=== PATIENT | female | born 1970 | race African-American/Black ===

== ENCOUNTER 2019-12-29 05:33 | Inpatient (IN) | payer MEDICARE ==
[~2019-12-29] VITALS: Ht 170.2 cm; Wt 83.2 kg
[~2019-12-29 05:33] MED LIST: AMLODIPINE BESYL5 MG PO; ASPIRIN325 MG PO; ATENOLOL50 MG PO; CELEBREX200 MG PO; FUROSEMIDE40 MG PO; LETROZOLE2.5 MG PO; LEVETIRACETAM500 MG PO; LEVOCETIRIZINE D5 MG PO; LEXAPRO10 MG PO; LORAZEPAM2 MG/1 M1 PO; PANTOPRAZOLE SO40 MG PO; PLAVIX75 MG PO; PRAVASTATIN SOD20 MG PO
--- OUTSIDE RECORDS SUMMARY | 2019-12-29 05:37 | XMS REPORT ---
Author Author [facility] Address Unknown Phone Unavailable Care Team Providers Care Leveler Name Role Phone LEXA SOLIS Unavailable Unavailable Payers Payer Name Policy Type Policy Number Effective Date Expiration Date Problems This patient has no known problems. Allergies, Adverse Reactions, Alerts Allergy Name Allergy Type Status Severity Reaction(s) Onset Date Inactive Date Treating Clinician Comments No Known Allergies DA Active U 2019-11-11 00:00:00 No Known Allergies DA Active U 2019-11-07 00:00:00 No Known Allergies DA Active U 2019-09-12 00:00:00 Medications This patient has no known medications. Results Test Description Test Time Test Comments Text Results Atomic Results Result Comments LEVETIRACETAM 2019-12-10 02:07:00 LEVETIRACETAM (test code=LEVTAM) 6.2 ug/mL 10.0-40.0 This test was developed and its performance characteristicsdetermined by [employer]. It has not been cleared orapproved by the Food and Drug Administration.Performed At: [facility] [id number] Sanjai MD Ph:[phone] COMPREHENSIVE METABOLIC [id number] 12:42:00* Test Item Value Reference Range Comments SODIUM (test code=NA) 142 mmol/L 136-145 POTASSIUM (test code=K) 3.9 mmol/L 3.5-5.1 CHLORIDE (test code=CL) 105.0 mmol/L 98-107 CARBON DIOXIDE (test code=CO2) 34.0 mmol/L 21-32 ANION GAP (test code=GAP) 6.9 10-20 GLUCOSE (test code=GLU) 72 mg/dL 74-106 BLOOD UREA NITROGEN (test code=BUN) 11 mg/dL 7-18 GLOMERULAR FILTRATION RATE (test code=GFR) > 60 mL/min >=60 Estimated GFR by using Modified MDRD formula.Chronic kidney disease is defined as either kidney damageor GFR <60 mL/min/1.73 m2 for >3 months. CREATININE (test code=CREAT) 0.90 mg/dL 0.55-1.02 Note change in reference range due to change in reagent. BUN/CREATININE RATIO (test code=BUN/CREA) 12.9 10-20 TOTAL PROTEIN (test code=PROT) 8.1 gram/dL 6.4-8.2 ALBUMIN (test code=ALB) 3.7 g/dL 3.4-5.0 GLOBULIN (test code=GLOB) 4.4 gram/dL 2.7-4.2 ALBUMIN/GLOBULIN RATIO (test code=A/G) 0.8 0.75-1.50 CALCIUM (test code=CA) 9.8 mg/dL 8.5-10.1 BILIRUBIN TOTAL (test code=BILT) 0.40 mg/dL 0.0-1.0 SGOT/AST (test code=AST) 9 IUnit/L 15-37 SGPT/ALT (test code=ALT) 14 IUnit/L 12-78 ALKALINE PHOSPHATASE TOTAL (test code=ALKP) 133 IUnit/L 45-117 Note change in reference range due to change in reagent. COMPREHENSIVE METABOLIC [id number] 12:30:00* Test Item Value Reference Range Comments SODIUM (test code=NA) 142 mmol/L 136-145 POTASSIUM (test code=K) 3.9 mmol/L 3.5-5.1 CHLORIDE (test code=CL) 105.0 mmol/L 98-107 CARBON DIOXIDE (test code=CO2) mmol/L 21-32 ANION GAP (test code=GAP) 10-20 GLUCOSE (test code=GLU) mg/dL 74-106 BLOOD UREA NITROGEN (test code=BUN) mg/dL 7-18 GLOMERULAR FILTRATION RATE (test code=GFR) mL/min >=60 CREATININE (test code=CREAT) mg/dL 0.55-1.02 BUN/CREATININE RATIO (test code=BUN/CREA) 10-20 TOTAL PROTEIN (test code=PROT) gram/dL 6.4-8.2 ALBUMIN (test code=ALB) g/dL 3.4-5.0 GLOBULIN (test code=GLOB) gram/dL 2.7-4.2 ALBUMIN/GLOBULIN RATIO (test code=A/G) 0.75-1.50 CALCIUM (test code=CA) mg/dL 8.5-10.1 BILIRUBIN TOTAL (test code=BILT) mg/dL 0.0-1.0 SGOT/AST (test code=AST) IUnit/L 15-37 SGPT/ALT (test code=ALT) IUnit/L 12-78 ALKALINE PHOSPHATASE TOTAL (test code=ALKP) IUnit/L 45-117 COMPREHENSIVE METABOLIC [id number] 08:01:00* Test Item Value Reference Range Comments SODIUM (test code=NA) 142 mmol/L 136-145 POTASSIUM (test code=K) 3.3 mmol/L 3.5-5.1 CHLORIDE (test code=CL) 106.0 mmol/L 98-107 CARBON DIOXIDE (test code=CO2) 29.0 mmol/L 21-32 ANION GAP (test code=GAP) 10.3 10-20 GLUCOSE (test code=GLU) 94 mg/dL 74-106 BLOOD UREA NITROGEN (test code=BUN) 5 mg/dL 7-18 GLOMERULAR FILTRATION RATE (test code=GFR) > 60 mL/min >=60 Estimated GFR by using Modified MDRD formula.Chronic kidney disease is defined as either kidney damageor GFR <60 mL/min/1.73 m2 for >3 months. CREATININE (test code=CREAT) 0.60 mg/dL 0.55-1.02 Note change in reference range due to change in reagent. BUN/CREATININE RATIO (test code=BUN/CREA) 8.8 10-20 TOTAL PROTEIN (test code=PROT) 7.1 gram/dL 6.4-8.2 ALBUMIN (test code=ALB) 3.3 g/dL 3.4-5.0 GLOBULIN (test code=GLOB) 3.8 gram/dL 2.7-4.2 ALBUMIN/GLOBULIN RATIO (test code=A/G) 0.9 0.75-1.50 CALCIUM (test code=CA) 9.4 mg/dL 8.5-10.1 BILIRUBIN TOTAL (test code=BILT) 0.50 mg/dL 0.0-1.0 SGOT/AST (test code=AST) 10 IUnit/L 15-37 SGPT/ALT (test code=ALT) 13 IUnit/L 12-78 ALKALINE PHOSPHATASE TOTAL (test code=ALKP) 121 IUnit/L 45-117 Note change in reference range due to change in reagent. COMPREHENSIVE METABOLIC [id number] 07:46:00* Test Item Value Reference Range Comments SODIUM (test code=NA) 142 mmol/L 136-145 POTASSIUM (test code=K) 3.3 mmol/L 3.5-5.1 CHLORIDE (test code=CL) 106.0 mmol/L 98-107 CARBON DIOXIDE (test code=CO2) mmol/L 21-32 ANION GAP (test code=GAP) 10-20 GLUCOSE (test code=GLU) mg/dL 74-106 BLOOD UREA NITROGEN (test code=BUN) mg/dL 7-18 GLOMERULAR FILTRATION RATE (test code=GFR) mL/min >=60 CREATININE (test code=CREAT) mg/dL 0.55-1.02 BUN/CREATININE RATIO (test code=BUN/CREA) 10-20 TOTAL PROTEIN (test code=PROT) gram/dL 6.4-8.2 ALBUMIN (test code=ALB) g/dL 3.4-5.0 GLOBULIN (test code=GLOB) gram/dL 2.7-4.2 ALBUMIN/GLOBULIN RATIO (test code=A/G) 0.75-1.50 CALCIUM (test code=CA) mg/dL 8.5-10.1 BILIRUBIN TOTAL (test code=BILT) mg/dL 0.0-1.0 SGOT/AST (test code=AST) IUnit/L 15-37 SGPT/ALT (test code=ALT) IUnit/L 12-78 ALKALINE PHOSPHATASE TOTAL (test code=ALKP) IUnit/L 45-117 CBC W/AUTO [id number] 07:35:00* Test Item Value Reference Range Comments WHITE BLOOD CELL (test code=WBC) 6.4 K/mm3 4.5-12.5 RED BLOOD CELL (test code=RBC) 4.07 mill/mm3 3.7-5.2 HEMOGLOBIN (test code=HGB) 12.4 gram/dL 11.5-15.5 HEMATOCRIT (test code=HCT) 38.1 % 36.0-46.0 MEAN CELL VOLUME (test code=MCV) 93.6 fL 80-98 MEAN CELL HGB (test code=MCH) 30.5 picogram 27.0-33.0 MEAN CELL HGB CONCETRATION (test code=MCHC) 32.5 gram/dL 33.0-36.0 RED CELL DISTRIBUTION WIDTH (test code=RDW) 13.0 % 11.6-16.2 RED CELL DISTRIBUTION WIDTH SD (test code=RDW-SD) 44.6 fL 37.0-51.0 PLATELET COUNT (test code=PLT) 359 K/mm3 150-450 MEAN PLATELET VOLUME (test code=MPV) 10.7 fL 6.7-11.0 NEUTROPHIL % (test code=NT%) 55.8 % 39.0-69.0 IMMATURE GRANULOCYTE % (test code=IG%) 0.2 % 0.0-5.0 LYMPHOCYTE % (test code=LY%) 32.6 % 25.0-55.0 MONOCYTE % (test code=MO%) 6.4 % 0.0-10.0 EOSINOPHIL % (test code=EO%) 4.5 % 0.0-5.0 BASOPHIL % (test code=BA%) 0.5 % 0.0-1.0 NUCLEATED RBC % (test code=NRBC%) 0.0 % 0-0 NEUTROPHIL # (test code=NT#) 3.59 K/mm3 1.8-7.7 IMMATURE GRANULOCYTE # (test code=IG#) 0.01 x10 3/uL 0-0.03 LYMPHOCYTE # (test code=LY#) 2.09 K/mm3 1.0-5.0 MONOCYTE # (test code=MO#) 0.41 K/mm3 0-0.8 EOSINOPHIL # (test code=EO#) 0.29 K/mm3 0.0-0.5 BASOPHIL # (test code=BA#) 0.03 K/mm3 0.0-0.2 NUCLEATED RBC # (test code=NRBC#) 0.00 K/mm3 0.0-0.1 MANUAL DIFF REQUIRED (test code=MDIFF) NO - CT HEAD/BRAIN W/O [id number] 10:09:00 Name: BREANN CRUZ [facility] : 1970 Age/S: 49 / F [address] [facility] Unit #: [id number] Loc: [place] [address] Phys: Adolfo Lr MD Acct: [id number] Dis Date: Status: ADM IN PHONE #: [phone] Exam Date: 12/07/2019 1000 FAX #: [phone] Reason: r/o stroke EXAMS: CPT CODE: [id number] CT HEAD/BRAIN W/O CONT 68441 HISTORY: r/o stroke TECHNIQUE: Noncontrast 2.[address] of the head. Examination acquired within 24 hours of arrival. Automated exposure control for dose reduction. COMPARISON: CT scan of the brain the previous morning and CT scan of the brain November 09, 2019 FINDINGS: Postsurgical changes of left frontotemporal craniotomy and left MCA aneurysm clipping appear similar to the previous study. There is extensive encephalomalacia of the left frontal lobe. 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 These findings are unchanged since November 2019. No acute intracranial hemorrhage or midline shift or mass effect is seen. Small left frontal hygroma is present. Visualized paranasal sinuses are clear. Mastoid air cells and middle ear cavities are clear. Orbital contents are unremarkable. IMPRESSION: No acute intracranial process or appreciable change since November 09, 2019. Location: [facility] at 1009 Reported and signed by: Alber Gayle MD CC: Nani Solomon MD; Domingo FERRERA MD; Candelario Castrejon DO; Adolfo Lr MD Technologist:Jevon Thomas RT(R),(MR),(CT); CTDI: D LP: Trnscb Date/Time: 12/07/2019 (1028) [email or web address] Orig Print D/T: S: 12/07/2019 (2919) PAGE 1 Signed R eport COMPREHENSIVE METABOLIC [id number] 05:49:00* Test Item Value Reference Range Comments SODIUM (test code=NA) 144 mmol/L 136-145 POTASSIUM (test code=K) 3.1 mmol/L 3.5-5.1 CHLORIDE (test code=CL) 108.0 mmol/L 98-107 CARBON DIOXIDE (test code=CO2) 31.0 mmol/L 21-32 ANION GAP (test code=GAP) 8.1 10-20 GLUCOSE (test code=GLU) 89 mg/dL 74-106 BLOOD UREA NITROGEN (test code=BUN) 7 mg/dL 7-18 GLOMERULAR FILTRATION RATE (test code=GFR) > 60 mL/min >=60 Estimated GFR by using Modified MDRD formula.Chronic kidney disease is defined as either kidney damageor GFR <60 mL/min/1.73 m2 for >3 months. CREATININE (test code=CREAT) 0.50 mg/dL 0.55-1.02 Note change in reference range due to change in reagent. BUN/CREATININE RATIO (test code=BUN/CREA) 14.0 10-20 TOTAL PROTEIN (test code=PROT) 6.2 gram/dL 6.4-8.2 ALBUMIN (test code=ALB) 2.8 g/dL 3.4-5.0 GLOBULIN (test code=GLOB) 3.4 gram/dL 2.7-4.2 ALBUMIN/GLOBULIN RATIO (test code=A/G) 0.8 0.75-1.50 CALCIUM (test code=CA) 9.0 mg/dL 8.5-10.1 BILIRUBIN TOTAL (test code=BILT) 0.50 mg/dL 0.0-1.0 SGOT/AST (test code=AST) 9 IUnit/L 15-37 SGPT/ALT (test code=ALT) 11 IUnit/L 12-78 ALKALINE PHOSPHATASE TOTAL (test code=ALKP) 109 IUnit/L 45-117 Note change in reference range due to change in reagent. LIPID PROFILE (CORONARY RISK)2019-12-07 05:49:00* Test Item Value Reference Range Comments TRIGLYCERIDES (test code=TRIG) 95 mg/dL 20-150 CHOLESTEROL (test code=CHOL) 144 mg/dL 0-200 CHOLESTEROL/HDL RATIO (test code=CHOLHDL) 3.0 RATIO 0-4.9 RISK ASSOCIATED WITH CHOL/HDL RATIOS: Risk Male Female1/2 AVERAGE 3.43 3.27AVERAGE 4.97 4.442X AVERAGE 9.55 7.053X AVERAGE 23.39 11.04 REFERENCE VALUE IS RELATED TO RISK LEVELS ASRECOMMENDED BY THE YADIEL. HEART, LUNG, AND BLOOD INST. HDL CHOLESTEROL (test code=HDL) 39 mg/dL 40-60 LIPOPROTEIN LDL (test code=LDL) 89 mg/dL 100-129 Reference Interval: mg/dL mmol/L Optimal <100 <2.6Near/above optimal 100-129 2.6- 3.3Borderline High 130-159 3.4-4.1High 160-189 4.1-4.9Very High >=190 >=4.9=========This LDL result is a direct measurement.========= THYROID STIMULATING [id number] 05:49:00* Test Item Value Reference Range Comments THYROID STIMULATING HORMONE (test code=TSH) 0.851 uIU/mL 0.36-3.74 TSH REFERENCE RANGES: EUTHYROID: 0.35 - 4.3 mIU/mL HYPO : > 5.5 mIU/mL HYPER : < 0.35 mIU/mL COMPREHENSIVE METABOLIC [id number] 05:38:00* Test Item Value Reference Range Comments SODIUM (test code=NA) 144 mmol/L 136-145 POTASSIUM (test code=K) 3.1 mmol/L 3.5-5.1 CHLORIDE (test code=CL) 108.0 mmol/L 98-107 CARBON DIOXIDE (test code=CO2) mmol/L 21-32 ANION GAP (test code=GAP) 10-20 GLUCOSE (test code=GLU) mg/dL 74-106 BLOOD UREA NITROGEN (test code=BUN) mg/dL 7-18 GLOMERULAR FILTRATION RATE (test code=GFR) mL/min >=60 CREATININE (test code=CREAT) mg/dL 0.55-1.02 BUN/CREATININE RATIO (test code=BUN/CREA) 10-20 TOTAL PROTEIN (test code=PROT) gram/dL 6.4-8.2 ALBUMIN (test code=ALB) g/dL 3.4-5.0 GLOBULIN (test code=GLOB) gram/dL 2.7-4.2 ALBUMIN/GLOBULIN RATIO (test code=A/G) 0.75-1.50 CALCIUM (test code=CA) mg/dL 8.5-10.1 BILIRUBIN TOTAL (test code=BILT) mg/dL 0.0-1.0 SGOT/AST (test code=AST) IUnit/L 15-37 SGPT/ALT (test code=ALT) IUnit/L 12-78 ALKALINE PHOSPHATASE TOTAL (test code=ALKP) IUnit/L 45-117 LIPID PROFILE (CORONARY RISK)2019-12-07 05:38:00* Test Item Value Reference Range Comments TRIGLYCERIDES (test code=TRIG) mg/dL 20-150 CHOLESTEROL (test code=CHOL) mg/dL 0-200 CHOLESTEROL/HDL RATIO (test code=CHOLHDL) RATIO 0-4.9 HDL CHOLESTEROL (test code=HDL) mg/dL 40-60 LIPOPROTEIN LDL (test code=LDL) mg/dL 100-129 THYROID STIMULATING [id number] 05:38:00* Test Item Value Reference Range Comments THYROID STIMULATING HORMONE (test code=TSH) uIU/mL 0.36-3.74 [id number] 05:15:00* Test Item Value Reference Range Comments GLYCOSYLATED HEMOGLOBIN (HA1C) (test code=GLYHGB) 6.1 % HbA1 SUGGESTED DIAGNOSIS: HbA1C (%) Diabetic >6.4Prediabetes 5.7 - 6.4Normal <5.7 ESTIMATED AVERAGE GLUCOSE (test code=EAG) 128 MG/DL CBC W/AUTO [id number] 05:02:00* Test Item Value Reference Range Comments WHITE BLOOD CELL (test code=WBC) 6.4 K/mm3 4.5-12.5 RED BLOOD CELL (test code=RBC) 3.74 mill/mm3 3.7-5.2 HEMOGLOBIN (test code=HGB) 11.6 gram/dL 11.5-15.5 HEMATOCRIT (test code=HCT) 35.0 % 36.0-46.0 MEAN CELL VOLUME (test code=MCV) 93.6 fL 80-98 MEAN CELL HGB (test code=MCH) 31.0 picogram 27.0-33.0 MEAN CELL HGB CONCETRATION (test code=MCHC) 33.1 gram/dL 33.0-36.0 RED CELL DISTRIBUTION WIDTH (test code=RDW) 13.0 % 11.6-16.2 RED CELL DISTRIBUTION WIDTH SD (test code=RDW-SD) 44.7 fL 37.0-51.0 PLATELET COUNT (test code=PLT) 329 K/mm3 150-450 MEAN PLATELET VOLUME (test code=MPV) 10.9 fL 6.7-11.0 NEUTROPHIL % (test code=NT%) 47.2 % 39.0-69.0 IMMATURE GRANULOCYTE % (test code=IG%) 0.2 % 0.0-5.0 LYMPHOCYTE % (test code=LY%) 39.4 % 25.0-55.0 MONOCYTE % (test code=MO%) 7.1 % 0.0-10.0 EOSINOPHIL % (test code=EO%) 5.8 % 0.0-5.0 BASOPHIL % (test code=BA%) 0.3 % 0.0-1.0 NUCLEATED RBC % (test code=NRBC%) 0.0 % 0-0 NEUTROPHIL # (test code=NT#) 3.00 K/mm3 1.8-7.7 IMMATURE GRANULOCYTE # (test code=IG#) 0.01 x10 3/uL 0-0.03 LYMPHOCYTE # (test code=LY#) 2.50 K/mm3 1.0-5.0 MONOCYTE # (test code=MO#) 0.45 K/mm3 0-0.8 EOSINOPHIL # (test code=EO#) 0.37 K/mm3 0.0-0.5 BASOPHIL # (test code=BA#) 0.02 K/mm3 0.0-0.2 NUCLEATED RBC # (test code=NRBC#) 0.00 K/mm3 0.0-0.1 MANUAL DIFF REQUIRED (test code=MDIFF) NO - CTA [id number] 12:38:00 Name: BREANN CRUZ [facility] : 1970 Age/S: 49 / F [address] [facility] Unit #: [id number] Loc: [place] [address] Phys: Stephon Smiht MD Acct: [id number] Dis Date: Status: REG ER PHONE #: [phone] Exam Date: 12/06/2019 1053 FAX #: [phone] Reason: aphasia, right sided weakness EXAMS: CPT CODE: [id number] CTA NECK 02626 HISTORY: aphasia, right sided weakness TECHNIQUE: Cerebral and Cervical CT angiography was acquired in the axial plane after bolus IV administration of iodinated contrast. Multiplanar, maximum intensity projection (MIP), and volume rendered reconstructions were created on the 3-D workstation. Automated exposure control for dose reduction. COMPARISON: Noncontrast CT brain earlier today FINDINGS: Bilateral distal cervical ICAs are patent. Atherosclerotic vascular calcification and luminal irregularity of the bilateral cavernous ICA segments. Bilateral petrous and supraclinoid ICA segments are patent however there is decreased caliber of the A1 branch of the right anterior cerebral artery compared to the left. Normal enhancement of the bilateral ophthalmic arteries. Bilateral A1 and distal JOSEPH segments are patent. Anterior communicating artery is present. Bilateral M1 and distal MCA branches are patent. No aneurysm. Bilateral distal vertebral arteries are patent. Basilar artery is patent. Bilateral PICAs and SCAs are patent. Normal appearance of the basilar tip. Bilateral P1 and distal ENVIRONMENTAL SERVICES MANAGER segments are patent. Right posterior commuting artery is within normal limits. Left posterior communicating artery is h ypoplastic.. No aneurysm. Dural venous sinuses and proximal tax services intern al jugular veins are patent. Please refer to the earlier CT scan of the brain for nonvascular findings. IMPRESSION: Decreased caliber of the right anterior commuting artery A1 b ranch compared to the left. However no occlusion is seen. Additionally t he distal anterior cerebral arteries as well as the posterior and middle cerebral arteries are symmetric and intact. 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 The carotid and vertebrobasilar margareth karen are within normal limits. Location: [facility] 1 Signed Report (CONTINUED) Name: BREANN CRUZ [facility] : [birth year] Age/S: 49 / F [address] Unit #: [id number] Loc: [place] [address] Phys: Stephon Smith MD Acct: [id number] Dis Date: Status: REG ER PHONE #: Exam Date: 12/06/2019 1053 FAX #: [phone] Reason: aphasia, right sided weakness EXAMS: CPT CODE: [id number] CTA NECK 66207 <Continued> at 1238 Reported and signed by: Alber Gayle MD CC: Stephon Smith MD; Domingo FERRERA MD; Candelario Castrejon DO Technologist:Camryn Cason RT(R) CTDI: DLP: Trnscb Date/Time: 12/06/2019 (1238) [id number] Orig Print D/T: S: 12/06/2019 (1241) PAGE 2 Signed Report - CTA [id number] 12:38:00 Name: BREANN CRUZ [facility] : 1970 Age/S: 49 / F [address] Unit #: [id number] Loc: [place] [address] Phys: Stephon Smith MD Acct: [id number] Dis Date: Status: REG ER PHONE #: [phone] Exam Date: 12/06/2019 105 FAX #: [phone] Reason: aphasia, right sided weakness EXAMS: CPT CODE: [id number] CTA HEAD 96592 HISTORY: aphasia, right sided weakness TECHNIQUE: Cerebral and Cervical CT angiography was acquired in the axial plane after bolus IV administration of iodinated contrast. Multiplanar, maximum intensity projection (MIP), and volume rendered reconstructions were created on the 3-D workstation. Automated exposure control for dose reduction. COMPARISON: Noncontrast CT brain earlier today FINDINGS: Bilateral distal cervical ICAs are patent. Atherosclerotic vascular calcification and luminal irregularity of the bilateral cavernous ICA segments. Bilateral petrous and supraclinoid ICA segments are patent however there is decreased caliber of the A1 branch of the right anterior cerebral artery compared to the left. Normal enhancement of the bilateral ophthalmic arteries. Bilateral A1 and distal JOSEPH segments are patent. Anterior communicating artery is present. Bilateral M1 and distal MCA branches are patent. No aneurysm. Bilateral distal vertebral arteries are patent. Basilar artery is patent. Bilateral PICAs and SCAs are patent. Normal appearance of the basilar tip. Bilateral P1 and distal ENVIRONMENTAL SERVICES MANAGER segments are patent. Right posterior commuting artery is within normal limits. Left posterior communicating artery is hypoplastic.. No aneurysm. Dural venous sinuses and proximal internal jugular veins are patent. Please refer to the earlier CT scan of the brain for nonvascular findings. IMPRESSION: Decreased caliber of the right anterior commuting artery A1 branch compared to the left. However no occlusion is seen. Additionally the distal anterior cerebral arteries as well as the posterior and middle cerebral arteries are symmetric and intact. 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 The carotid and vertebrobasilar arteries are within normal limits. Location: [facility] PAGE 1 Signed Report (CONTINUED) Name: VAISHNAVI CRUZCarine EUGENIO [facility] : [birth year] Age/S: 49 / F [address] [facility] Unit #: [id number] Loc: [place] [address] Phys: Stephon Smith MD Acct: [id number] Dis Date: Status: REG ER PHONE #: [phone] Exam Date: 12/06/2019 1053 FAX #: [phone] Reason: aphasia, right sided weakness EXAMS: CPT CODE: [id number] CTA HEAD 79924 <Continued> at 1238 Reported and signed by: Alber Gayle MD CC: Stephon Smith MD; Domingo FERRERA MD; Candelario Castrejon DO Technologist:Camryn Cason RT(R) CTDI: DLP: Trnscb Date/Time: 12/06/2019 (1238) [email or web address] Orig Print D/T: S: 12/06/2019 (3588) PAGE 2 Signed Report - CT HEAD/BRAIN W/O [id number] 11:19:00 Name: BREANN CRUZ [facility] : 1970 Age/S: 49 / F [address] [facility] Unit #: [id number] Loc: [place] [address] Phys: Stephon Smith MD Acct: [id number] Dis Date: Status: REG ER PHONE #: [phone] Exam Date: 12/06/2019 1053 FAX #: [phone] Reason: aphasia, right sided weakness (face RUE>RLE) EXAMS: CPT CODE: [id number] CT HEAD/BRAIN W/O CONT 40212 HISTORY: aphasia, right sided weakness (face RUE>RLE) TECHNIQUE: Noncontrast 2.[address] of the head. Examination acquired within 24 hours of arrival. Automated exposure control for dose reduction. COMPARISON: Noncontrast CT scan of the brain November 15, 2019 FINDINGS: No lacerations or contusions of the scalp or facial soft tissues. Postsurgical changes of left fronto temporal craniotomy are redemonstrated. There is also encephalomalacia of the underlying left frontal lobe that is unchanged from the previous exami [employer]. There is also a old left basal ganglia infarct (01/26) that is unch anged from the previous exam. No acute intracranial hemorrha ge or mass effect is seen. Visualized paranasal sinuses are clear. Mastoid air cells and middle ear cavities are clear. Orbital cont ents are unremarkable. IMPRESSION: No acute intracranial process or significant change from prior exam. Encep halomalacia of the left frontal lobe and infarct in the left basal gangl ia are unchanged from the prior exam. Location: [facility] * * at 1119 Reported and signed by: Alber Gayle MD CC: Stephon Smith MD; Domingo FERRERA MD; Candelario Castrejon DO Technologist:Camryn MEIER) Georgi TDI: DLP: Trnscb Date/Time: 12/06/2019 (111) [id number] Orig Print D/T: S: 12/06/2019 (2282) PAGE 1 Signed Report PROTHROMBIN [id number] 09:08:00* Test Item Value Reference Range Comments PROTHROMBIN TIME PATIENT (test code=PTP) 11.8 seconds 9.0-14.0 INTERNATIONAL NORMAL RATIO (test code=INR) 1.0 0.8-1.2 The therapeutic range for oral anticoagulant therapy formost indications is an international normalized ratio (INR)of between 2.0 and 3.0. The recommended therapeutic INRrange for various clinical situations is listed below: Clinical Situation INR range Pulmonary e mbolism treatment (2.0-3.0)Venous thrombosis treatmentVenous thrombosis prophylaxis (high risk surgery)Prevention of systemic embolism from: Acute myocardial infarction Valvular heart disease Atrial fibrillation Mechanical prosthetic heart valves (2.5-3.5) IS PATIENT ON ANTICOAGULANTS? NTHROMBOPLASTIN TIME [id number] 09:08:00* Test Item Value Reference Range Comments THROMBOPLASTIN TIME PARTIAL (test code=PTT) 34.5 seconds 25.0-36.5 IS PATIENT ON ANTICOAGULANTS? NURINALYSIS [id number] 09:06:00* Test Item Value Reference Range Comments UA COLOR (test code=COLU) YELLOW YELLOW UA APPEARANCE (test code=APPU) CLEAR CLEAR UA GLUCOSE DIPSTICK (test code=DGLUU) NEGATIVE mg/dL NEGATIVE UA BILIRUBIN DIPSTICK (test code=BILU) NEGATIVE mg/dL NEGATIVE UA KETONE DIPSTICK (test code=KETU) NEGATIVE mg/dL NEGATIVE UA SPECIFIC GRAVITY (test code=SGU) 1.039 1.001-1.035 UA BLOOD DIPSTICK (test code=KIM) Negative mg/dL NEGATIVE UA PH DIPSTICK (test code=LEWIS) 6.0 5.0-8.0 UA PROTEIN DIPSTICK (test code=PROU) 10 (Trace) mg/dL NEGATIVE UA UROBILINIOGEN DIPSTICK (test code=URO) 2.0 (1+) mg/dL NEGATIVE UA NITRITE DIPSTICK (test code=MATT) NEGATIVE NEGATIVE UA LEUKOCYTE ESTERASE W REFLEX (test code=LEUUR) NEGATIVE Homar/uL NEGATIVE UA WBC (test code=WBCU) 0-5 per HPF 0-5 UA RBC (test code=RBCU) 0-2 #/HPF 0-5 UA EPITHELIAL CELLS (test code=EPIU) FEW per HPF FEW UA BACTERIA (test code=BACU) NONE SEEN #/HPF NONE UA MUCUS (test code=MUCU) FEW #/LPF FEW Urine Source? Clean CatchBASIC METABOLIC [id number] 09:02:00* Test Item Value Reference Range Comments SODIUM (test code=NA) 144 mmol/L 136-145 POTASSIUM (test code=K) 4.9 mmol/L 3.5-5.1 CHLORIDE (test code=CL) 110.0 mmol/L 98-107 CARBON DIOXIDE (test code=CO2) 28.0 mmol/L 21-32 ANION GAP (test code=GAP) 10.9 10-20 GLUCOSE (test code=GLU) 88 mg/dL 74-106 BLOOD UREA NITROGEN (test code=BUN) 13 mg/dL 7-18 GLOMERULAR FILTRATION RATE (test code=GFR) > 60 mL/min >=60 Estimated GFR by using Modified MDRD formula.Chronic kidney disease is defined as either kidney damageor GFR <60 mL/min/1.73 m2 for >3 months. CREATININE (test code=CREAT) 0.60 mg/dL 0.55-1.02 Note change in reference range due to change in reagent. BUN/CREATININE RATIO (test code=BUN/CREA) 21.7 10-20 CALCIUM (test code=CA) 9.2 mg/dL 8.5-10.1 HCG SERUM [id number] 09:02:00* Test Item Value Reference Range Comments HCG SERUM QUAL (test code=HCGQL) NEGATIVE NEGATIVE This HCGQL test is NOT applicable for MALE patients.Check with nurse about probable order error.If Tumor Marker Test needed, nurse should order test "HCGTU"(Test #550.29027) [id number] 09:02:00* Test Item Value Reference Range Comments TROPONIN-I (test code=TROPI) <0.015 ng/mL 0-0.045 BASIC METABOLIC [id number] 08:59:00* Test Item Value Reference Range Comments SODIUM (test code=NA) mmol/L 136-145 POTASSIUM (test code=K) mmol/L 3.5-5.1 CHLORIDE (test code=CL) mmol/L 98-107 CARBON DIOXIDE (test code=CO2) mmol/L 21-32 ANION GAP (test code=GAP) 10-20 GLUCOSE (test code=GLU) mg/dL 74-106 BLOOD UREA NITROGEN (test code=BUN) mg/dL 7-18 GLOMERULAR FILTRATION RATE (test code=GFR) mL/min >=60 CREATININE (test code=CREAT) mg/dL 0.55-1.02 BUN/CREATININE RATIO (test code=BUN/CREA) 10-20 CALCIUM (test code=CA) mg/dL 8.5-10.1 HCG SERUM [id number] 08:59:00* Test Item Value Reference Range Comments HCG SERUM QUAL (test code=HCGQL) NEGATIVE NEGATIVE This HCGQL test is NOT applicable for MALE patients.Check with nurse about probable order error.If Tumor Marker Test needed, nurse should order test "HCGTU"(Test #550.01749) [id number] 08:59:00* Test Item Value Reference Range Comments TROPONIN-I (test code=TROPI) ng/mL 0-0.045 CBC W/AUTO [id number] 08:49:00* Test Item Value Reference Range Comments WHITE BLOOD CELL (test code=WBC) 5.9 K/mm3 4.5-12.5 RED BLOOD CELL (test code=RBC) 3.93 mill/mm3 3.7-5.2 HEMOGLOBIN (test code=HGB) 12.4 gram/dL 11.5-15.5 HEMATOCRIT (test code=HCT) 37.7 % 36.0-46.0 MEAN CELL VOLUME (test code=MCV) 95.9 fL 80-98 MEAN CELL HGB (test code=MCH) 31.6 picogram 27.0-33.0 MEAN CELL HGB CONCETRATION (test code=MCHC) 32.9 gram/dL 33.0-36.0 RED CELL DISTRIBUTION WIDTH (test code=RDW) 13.2 % 11.6-16.2 RED CELL DISTRIBUTION WIDTH SD (test code=RDW-SD) 46.8 fL 37.0-51.0 PLATELET COUNT (test code=PLT) 333 K/mm3 150-450 MEAN PLATELET VOLUME (test code=MPV) 10.8 fL 6.7-11.0 NEUTROPHIL % (test code=NT%) 53.3 % 39.0-69.0 IMMATURE GRANULOCYTE % (test code=IG%) 0.3 % 0.0-5.0 LYMPHOCYTE % (test code=LY%) 32.7 % 25.0-55.0 MONOCYTE % (test code=MO%) 7.8 % 0.0-10.0 EOSINOPHIL % (test code=EO%) 5.6 % 0.0-5.0 BASOPHIL % (test code=BA%) 0.3 % 0.0-1.0 NUCLEATED RBC % (test code=NRBC%) 0.0 % 0-0 NEUTROPHIL # (test code=NT#) 3.12 K/mm3 1.8-7.7 IMMATURE GRANULOCYTE # (test code=IG#) 0.02 x10 3/uL 0-0.03 LYMPHOCYTE # (test code=LY#) 1.92 K/mm3 1.0-5.0 MONOCYTE # (test code=MO#) 0.46 K/mm3 0-0.8 EOSINOPHIL # (test code=EO#) 0.33 K/mm3 0.0-0.5 BASOPHIL # (test code=BA#) 0.02 K/mm3 0.0-0.2 NUCLEATED RBC # (test code=NRBC#) 0.00 K/mm3 0.0-0.1 MANUAL DIFF REQUIRED (test code=MDIFF) NO URINALYSIS [id number] 08:49:00* Test Item Value Reference Range Comments UA COLOR (test code=COLU) YELLOW YELLOW UA APPEARANCE (test code=APPU) CLEAR CLEAR UA GLUCOSE DIPSTICK (test code=DGLUU) NEGATIVE mg/dL NEGATIVE UA BILIRUBIN DIPSTICK (test code=BILU) NEGATIVE mg/dL NEGATIVE UA KETONE DIPSTICK (test code=KETU) NEGATIVE mg/dL NEGATIVE UA SPECIFIC GRAVITY (test code=SGU) 1.039 1.001-1.035 UA BLOOD DIPSTICK (test code=KIM) Negative mg/dL NEGATIVE UA PH DIPSTICK (test code=LEWIS) 6.0 5.0-8.0 UA PROTEIN DIPSTICK (test code=PROU) 10 (Trace) mg/dL NEGATIVE UA UROBILINIOGEN DIPSTICK (test code=URO) 2.0 (1+) mg/dL NEGATIVE UA NITRITE DIPSTICK (test code=MATT) NEGATIVE NEGATIVE UA LEUKOCYTE ESTERASE W REFLEX (test code=LEUUR) NEGATIVE Homar/uL NEGATIVE UA WBC (test code=WBCU) per HPF 0-5 UA RBC (test code=RBCU) per HPF 0-5 UA EPITHELIAL CELLS (test code=EPIU) per HPF Few UA BACTERIA (test code=BACU) per HPF NONE Urine Source? Clean CatchBASIC METABOLIC [id number] 08:14:00* Test Item Value Reference Range Comments SODIUM (test code=NA) 143 mmol/L 136-145 POTASSIUM (test code=K) 4.1 mmol/L 3.5-5.1 CHLORIDE (test code=CL) 108.0 mmol/L 98-107 CARBON DIOXIDE (test code=CO2) 27.0 mmol/L 21-32 ANION GAP (test code=GAP) 12.1 10-20 GLUCOSE (test code=GLU) 90 mg/dL 74-106 BLOOD UREA NITROGEN (test code=BUN) 11 mg/dL 7-18 GLOMERULAR FILTRATION RATE (test code=GFR) > 60 mL/min >=60 Estimated GFR by using Modified MDRD formula.Chronic kidney disease is defined as either kidney damageor GFR <60 mL/min/1.73 m2 for >3 months. CREATININE (test code=CREAT) 0.70 mg/dL 0.55-1.02 Note change in reference range due to change in reagent. BUN/CREATININE RATIO (test code=BUN/CREA) 15.7 10-20 CALCIUM (test code=CA) 9.4 mg/dL 8.5-10.1 BASIC METABOLIC [id number] 07:43:00* Test Item Value Reference Range Comments SODIUM (test code=NA) 143 mmol/L 136-145 POTASSIUM (test code=K) 4.1 mmol/L 3.5-5.1 CHLORIDE (test code=CL) 108.0 mmol/L 98-107 CARBON DIOXIDE (test code=CO2) mmol/L 21-32 ANION GAP (test code=GAP) 10-20 GLUCOSE (test code=GLU) mg/dL 74-106 BLOOD UREA NITROGEN (test code=BUN) mg/dL 7-18 GLOMERULAR FILTRATION RATE (test code=GFR) mL/min >=60 CREATININE (test code=CREAT) mg/dL 0.55-1.02 BUN/CREATININE RATIO (test code=BUN/CREA) 10-20 CALCIUM (test code=CA) 9.4 mg/dL 8.5-10.1 CBC W/AUTO [id number] 07:32:00* Test Item Value Reference Range Comments WHITE BLOOD CELL (test code=WBC) 10.5 K/mm3 4.5-12.5 RED BLOOD CELL (test code=RBC) 4.08 mill/mm3 3.7-5.2 HEMOGLOBIN (test code=HGB) 12.6 gram/dL 11.5-15.5 HEMATOCRIT (test code=HCT) 40.0 % 36.0-46.0 MEAN CELL VOLUME (test code=MCV) 98.0 fL 80-98 MEAN CELL HGB (test code=MCH) 30.9 picogram 27.0-33.0 MEAN CELL HGB CONCETRATION (test code=MCHC) 31.5 gram/dL 33.0-36.0 RED CELL DISTRIBUTION WIDTH (test code=RDW) 13.8 % 11.6-16.2 RED CELL DISTRIBUTION WIDTH SD (test code=RDW-SD) 49.9 fL 37.0-51.0 PLATELET COUNT (test code=PLT) 441 K/mm3 150-450 MEAN PLATELET VOLUME (test code=MPV) 10.4 fL 6.7-11.0 NEUTROPHIL % (test code=NT%) 59.7 % 39.0-69.0 IMMATURE GRANULOCYTE % (test code=IG%) 0.7 % 0.0-5.0 LYMPHOCYTE % (test code=LY%) 25.6 % 25.0-55.0 MONOCYTE % (test code=MO%) 6.4 % 0.0-10.0 EOSINOPHIL % (test code=EO%) 6.8 % 0.0-5.0 BASOPHIL % (test code=BA%) 0.8 % 0.0-1.0 NUCLEATED RBC % (test code=NRBC%) 0.0 % 0-0 NEUTROPHIL # (test code=NT#) 6.30 K/mm3 1.8-7.7 IMMATURE GRANULOCYTE # (test code=IG#) 0.07 x10 3/uL 0-0.03 LYMPHOCYTE # (test code=LY#) 2.70 K/mm3 1.0-5.0 MONOCYTE # (test code=MO#) 0.67 K/mm3 0-0.8 EOSINOPHIL # (test code=EO#) 0.72 K/mm3 0.0-0.5 BASOPHIL # (test code=BA#) 0.08 K/mm3 0.0-0.2 NUCLEATED RBC # (test code=NRBC#) 0.00 K/mm3 0.0-0.1 [id number] 08:11:00* Test Item Value Reference Range Comments LEVETIRACETAM (test code=LEVTAM) 29.9 ug/mL 10.0-40.0 This test was developed and its performance characteristicsdetermined by [employer]. It has not been cleared orapproved by the Food and Drug Administration.Performed At: [address] [id number] Ham MD Ph:[phone] URINALYSIS [id number] 16:28:00* Test Item Value Reference Range Comments UA COLOR (test code=COLU) YELLOW YELLOW UA APPEARANCE (test code=APPU) CLEAR CLEAR UA GLUCOSE DIPSTICK (test code=DGLUU) NEGATIVE mg/dL NEGATIVE UA BILIRUBIN DIPSTICK (test code=BILU) NEGATIVE mg/dL NEGATIVE UA KETONE DIPSTICK (test code=KETU) NEGATIVE mg/dL NEGATIVE UA SPECIFIC GRAVITY (test code=SGU) 1.023 1.001-1.035 UA BLOOD DIPSTICK (test code=KIM) Negative mg/dL NEGATIVE UA PH DIPSTICK (test code=LEWIS) 6.5 5.0-8.0 UA PROTEIN DIPSTICK (test code=PROU) NEGATIVE mg/dL NEGATIVE UA UROBILINIOGEN DIPSTICK (test code=URO) Normal mg/dL NEGATIVE UA NITRITE DIPSTICK (test code=MATT) NEGATIVE NEGATIVE UA LEUKOCYTE ESTERASE W REFLEX (test code=LEUUR) NEGATIVE Homar/uL NEGATIVE UA WBC (test code=WBCU) 0-5 per HPF 0-5 UA RBC (test code=RBCU) 0-2 #/HPF 0-5 UA EPITHELIAL CELLS (test code=EPIU) FEW per HPF FEW UA BACTERIA (test code=BACU) NONE SEEN #/HPF NONE UA HYALINE CAST (test code=HYALU) 6-10 #/LPF 0-5 UA MUCUS (test code=MUCU) FEW #/LPF FEW Urine Source? CatheterURINALYSIS [id number] 16:27:00* Test Item Value Reference Range Comments UA COLOR (test code=COLU) YELLOW YELLOW UA APPEARANCE (test code=APPU) CLEAR CLEAR UA GLUCOSE DIPSTICK (test code=DGLUU) NEGATIVE mg/dL NEGATIVE UA BILIRUBIN DIPSTICK (test code=BILU) NEGATIVE mg/dL NEGATIVE UA KETONE DIPSTICK (test code=KETU) NEGATIVE mg/dL NEGATIVE UA SPECIFIC GRAVITY (test code=SGU) 1.023 1.001-1.035 UA BLOOD DIPSTICK (test code=KIM) Negative mg/dL NEGATIVE UA PH DIPSTICK (test code=LEWIS) 6.5 5.0-8.0 UA PROTEIN DIPSTICK (test code=PROU) NEGATIVE mg/dL NEGATIVE UA UROBILINIOGEN DIPSTICK (test code=URO) Normal mg/dL NEGATIVE UA NITRITE DIPSTICK (test code=MATT) NEGATIVE NEGATIVE UA LEUKOCYTE ESTERASE W REFLEX (test code=LEUUR) NEGATIVE Homar/uL NEGATIVE UA WBC (test code=WBCU) per HPF 0-5 UA RBC (test code=RBCU) per HPF 0-5 UA EPITHELIAL CELLS (test code=EPIU) per HPF Few UA BACTERIA (test code=BACU) per HPF NONE Urine Source? CatheterBASIC METABOLIC [id number] 14:27:00* Test Item Value Reference Range Comments SODIUM (test code=NA) 138 mmol/L 136-145 POTASSIUM (test code=K) 4.5 mmol/L 3.5-5.1 CHLORIDE (test code=CL) 104.0 mmol/L 98-107 CARBON DIOXIDE (test code=CO2) 28.0 mmol/L 21-32 ANION GAP (test code=GAP) 10.5 10-20 GLUCOSE (test code=GLU) 87 mg/dL 74-106 BLOOD UREA NITROGEN (test code=BUN) 15 mg/dL 7-18 GLOMERULAR FILTRATION RATE (test code=GFR) > 60 mL/min >=60 Estimated GFR by using Modified MDRD formula.Chronic kidney disease is defined as either kidney damageor GFR <60 mL/min/1.73 m2 for >3 months. CREATININE (test code=CREAT) 0.70 mg/dL 0.55-1.02 Note change in reference range due to change in reagent. BUN/CREATININE RATIO (test code=BUN/CREA) 21.4 10-20 CALCIUM (test code=CA) 9.5 mg/dL 8.5-10.1 COMMENTS TO MILL CRANE OPERATOR: YESBASIC METABOLIC [id number] 14:21:00* Test Item Value Reference Range Comments SODIUM (test code=NA) 138 mmol/L 136-145 POTASSIUM (test code=K) 4.5 mmol/L 3.5-5.1 CHLORIDE (test code=CL) 104.0 mmol/L 98-107 CARBON DIOXIDE (test code=CO2) mmol/L 21-32 ANION GAP (test code=GAP) 10-20 GLUCOSE (test code=GLU) mg/dL 74-106 BLOOD UREA NITROGEN (test code=BUN) mg/dL 7-18 GLOMERULAR FILTRATION RATE (test code=GFR) mL/min >=60 CREATININE (test code=CREAT) mg/dL 0.55-1.02 BUN/CREATININE RATIO (test code=BUN/CREA) 10-20 CALCIUM (test code=CA) mg/dL 8.5-10.1 COMMENTS TO MILL CRANE OPERATOR: MOE W/AUTO [id number] 13:57:00* Test Item Value Reference Range Comments WHITE BLOOD CELL (test code=WBC) 10.4 K/mm3 4.5-12.5 RED BLOOD CELL (test code=RBC) 4.13 mill/mm3 3.7-5.2 HEMOGLOBIN (test code=HGB) 13.0 gram/dL 11.5-15.5 HEMATOCRIT (test code=HCT) 40.7 % 36.0-46.0 MEAN CELL VOLUME (test code=MCV) 98.5 fL 80-98 MEAN CELL HGB (test code=MCH) 31.5 picogram 27.0-33.0 MEAN CELL HGB CONCETRATION (test code=MCHC) 31.9 gram/dL 33.0-36.0 RED CELL DISTRIBUTION WIDTH (test code=RDW) 14.1 % 11.6-16.2 RED CELL DISTRIBUTION WIDTH SD (test code=RDW-SD) 51.1 fL 37.0-51.0 PLATELET COUNT (test code=PLT) 397 K/mm3 150-450 MEAN PLATELET VOLUME (test code=MPV) 10.8 fL 6.7-11.0 NEUTROPHIL % (test code=NT%) 50.4 % 39.0-69.0 IMMATURE GRANULOCYTE % (test code=IG%) 0.6 % 0.0-5.0 LYMPHOCYTE % (test code=LY%) 31.6 % 25.0-55.0 MONOCYTE % (test code=MO%) 10.1 % 0.0-10.0 EOSINOPHIL % (test code=EO%) 6.7 % 0.0-5.0 BASOPHIL % (test code=BA%) 0.6 % 0.0-1.0 NUCLEATED RBC % (test code=NRBC%) 0.0 % 0-0 NEUTROPHIL # (test code=NT#) 5.22 K/mm3 1.8-7.7 IMMATURE GRANULOCYTE # (test code=IG#) 0.06 x10 3/uL 0-0.03 LYMPHOCYTE # (test code=LY#) 3.27 K/mm3 1.0-5.0 MONOCYTE # (test code=MO#) 1.05 K/mm3 0-0.8 EOSINOPHIL # (test code=EO#) 0.69 K/mm3 0.0-0.5 BASOPHIL # (test code=BA#) 0.06 K/mm3 0.0-0.2 NUCLEATED RBC # (test code=NRBC#) 0.00 K/mm3 0.0-0.1 - CT HEAD/BRAIN W/O [id number] 13:10:00 Name: BREANN CRUZ [facility] : 1970 Age/S: 49 / F [address] Unit #: [id number] Loc: DeborahSHONDA [address] Phys: Candelario Castrejon DO Acct: [id number] Dis Date: Status: ADM IN PHONE #: [phone] Exam Date: 11/15/2019 1248 FAX #: [phone] Reason: cog fluxuates EXAMS: CPT CODE: [id number] CT HEAD/BRAIN W/O CONT 36679 HISTORY: Confusion. COMPARISON: November 09, 2019. Location: [facility]. CT brain without contrast: Automated exposure control. No acute intracranial bleeds. No acute territorial vascular infarction. Residual subdural air and fluid and dural thickening on the left side post aneurysm clip placement. 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 No mass effect on the left lateral ventricle. Left basal ganglia infarction noted again. The dobson-white matter differentiation is preserved. The sulci, gyri, ventricles and subarachnoid spaces and the bas ilar cisterns are normal for patient's age. No herniation or hydrocephalus or midline shift is noted. Fourth ventricle remains midline. Portions of the visualized paranasal sinuses are unremarkable. 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 IMPRESSION: No acute intracranial bleeds.. Residual subdural air and fluid and dural thickeni ng on the left side post aneurysm clip placement. Encephalomalacia in th e left frontal and parietal cortex noted again. No mass effect on the le ft lateral ventricle. Left basal ganglia infarction noted again. No acute territorial vascular infarction. No herniation or hydrocephalus or midline shift. Electron ically Signed by Ant Ortega on 11/15/2019 at 1310 Reported and signed by: Khurram Ortega M.D. PAGE 1 Signed Report (CONTINUED) Name: BREANN CRUZ [facility] : 1970 Age/S: 49 / F [address] [facility] Unit #: [id number] Loc: [place] [address] Phys: Candelario Castrejon DO Acct: [id number] Dis Date: Status: ADM IN PHONE #: [phone] Exam Date: 2019 1246 FAX #: [phone] Reason: cog fluxuates EXAMS: CPT CODE: [id number] CT HEAD/BRAIN W/O CONT 41530 <Continued> CC: Domingo FERRERA MD; Candelario Castrejon DO Technologist:Tevin James RT(R) CTDI: DLP: Trnscb Date/Time: 11/15/2019 (1310) t.[email or web address] Orig Print D/T: S: 11/15/2019 (2508) PAGE 2 Signed Report BASIC METABOLIC PANEL 2019-11-11 01:48:00* Test Item Value Reference Range Comments SODIUM (test code=NA) 139 mmol/L 136-145 POTASSIUM (test code=K) 3.2 mmol/L 3.5-5.1 CHLORIDE (test code=CL) 103.0 mmol/L 98-107 CARBON DIOXIDE (test code=CO2) 29.0 mmol/L 21-32 ANION GAP (test code=GAP) 10.2 10-20 GLUCOSE (test code=GLU) 114 mg/dL 74-106 BLOOD UREA NITROGEN (test code=BUN) 11 mg/dL 7-18 GLOMERULAR FILTRATION RATE (test code=GFR) > 60 mL/min >=60 Estimated GFR by using Modified MDRD formula.Chronic kidney disease is defined as either kidney damageor GFR <60 mL/min/1.73 m2 for >3 months. CREATININE (test code=CREAT) 0.60 mg/dL 0.55-1.02 Note change in reference range due to change in reagent. BUN/CREATININE RATIO (test code=BUN/CREA) 18.3 10-20 CALCIUM (test code=CA) 9.0 mg/dL 8.5-10.1 [id number] 01:48:00* Test Item Value Reference Range Comments PHOSPHORUS (test code=PHOS) 3.8 mg/dL 2.5-4.9 [id number] 01:48:00* Test Item Value Reference Range Comments MAGNESIUM (test code=MAG) 2.2 mg/dL 1.8-2.4 BASIC METABOLIC [id number] 01:30:00* Test Item Value Reference Range Comments SODIUM (test code=NA) 139 mmol/L 136-145 POTASSIUM (test code=K) 3.2 mmol/L 3.5-5.1 CHLORIDE (test code=CL) 103.0 mmol/L 98-107 CARBON DIOXIDE (test code=CO2) mmol/L 21-32 ANION GAP (test code=GAP) 10-20 GLUCOSE (test code=GLU) mg/dL 74-106 BLOOD UREA NITROGEN (test code=BUN) mg/dL 7-18 GLOMERULAR FILTRATION RATE (test code=GFR) mL/min >=60 CREATININE (test code=CREAT) mg/dL 0.55-1.02 BUN/CREATININE RATIO (test code=BUN/CREA) 10-20 CALCIUM (test code=CA) mg/dL 8.5-10.1 [id number] 01:30:00* Test Item Value Reference Range Comments PHOSPHORUS (test code=PHOS) mg/dL 2.5-4.9 [id number] 01:30:00* Test Item Value Reference Range Comments MAGNESIUM (test code=MAG) mg/dL 1.8-2.4 CBC W/AUTO [id number] 01:17:00* Test Item Value Reference Range Comments WHITE BLOOD CELL (test code=WBC) K/mm3 4.5-12.5 RED BLOOD CELL (test code=RBC) mill/mm3 3.7-5.2 HEMOGLOBIN (test code=HGB) 12.3 gram/dL 11.5-15.5 HEMATOCRIT (test code=HCT) 36.3 % 36.0-46.0 MEAN CELL VOLUME (test code=MCV) fL 80-98 MEAN CELL HGB (test code=MCH) picogram 27.0-33.0 MEAN CELL HGB CONCETRATION (test code=MCHC) gram/dL 33.0-36.0 RED CELL DISTRIBUTION WIDTH (test code=RDW) % 11.6-16.2 RED CELL DISTRIBUTION WIDTH SD (test code=RDW-SD) fL 37.0-51.0 PLATELET COUNT (test code=PLT) K/mm3 150-450 MEAN PLATELET VOLUME (test code=MPV) fL 6.7-11.0 NEUTROPHIL % (test code=NT%) % 39.0-69.0 IMMATURE GRANULOCYTE % (test code=IG%) % 0.0-5.0 LYMPHOCYTE % (test code=LY%) % 25.0-55.0 MONOCYTE % (test code=MO%) % 0.0-10.0 EOSINOPHIL % (test code=EO%) % 0.0-5.0 BASOPHIL % (test code=BA%) % 0.0-1.0 NEUTROPHIL # (test code=NT#) K/mm3 1.8-7.7 LYMPHOCYTE # (test code=LY#) K/mm3 1.0-5.0 MONOCYTE # (test code=MO#) K/mm3 0-0.8 EOSINOPHIL # (test code=EO#) K/mm3 0.0-0.5 BASOPHIL # (test code=BA#) K/mm3 0.0-0.2 CBC W/AUTO [id number] 01:17:00* Test Item Value Reference Range Comments WHITE BLOOD CELL (test code=WBC) 9.4 K/mm3 4.5-12.5 RED BLOOD CELL (test code=RBC) 3.92 mill/mm3 3.7-5.2 HEMOGLOBIN (test code=HGB) 12.3 gram/dL 11.5-15.5 HEMATOCRIT (test code=HCT) 36.3 % 36.0-46.0 MEAN CELL VOLUME (test code=MCV) 92.6 fL 80-98 MEAN CELL HGB (test code=MCH) 31.4 picogram 27.0-33.0 MEAN CELL HGB CONCETRATION (test code=MCHC) 33.9 gram/dL 33.0-36.0 RED CELL DISTRIBUTION WIDTH (test code=RDW) 13.5 % 11.6-16.2 RED CELL DISTRIBUTION WIDTH SD (test code=RDW-SD) 46.0 fL 37.0-51.0 PLATELET COUNT (test code=PLT) 223 K/mm3 150-450 MEAN PLATELET VOLUME (test code=MPV) 12.0 fL 6.7-11.0 NEUTROPHIL % (test code=NT%) 58.3 % 39.0-69.0 IMMATURE GRANULOCYTE % (test code=IG%) 0.5 % 0.0-5.0 LYMPHOCYTE % (test code=LY%) 31.3 % 25.0-55.0 MONOCYTE % (test code=MO%) 8.1 % 0.0-10.0 EOSINOPHIL % (test code=EO%) 1.6 % 0.0-5.0 BASOPHIL % (test code=BA%) 0.2 % 0.0-1.0 NUCLEATED RBC % (test code=NRBC%) 0.0 % 0-0 NEUTROPHIL # (test code=NT#) 5.50 K/mm3 1.8-7.7 IMMATURE GRANULOCYTE # (test code=IG#) 0.05 x10 3/uL 0-0.03 LYMPHOCYTE # (test code=LY#) 2.95 K/mm3 1.0-5.0 MONOCYTE # (test code=MO#) 0.76 K/mm3 0-0.8 EOSINOPHIL # (test code=EO#) 0.15 K/mm3 0.0-0.5 BASOPHIL # (test code=BA#) 0.02 K/mm3 0.0-0.2 NUCLEATED RBC # (test code=NRBC#) 0.00 K/mm3 0.0-0.1 MANUAL DIFF REQUIRED (test code=MDIFF) NO COMPREHENSIVE METABOLIC [id number] 04:09:00* Test Item Value Reference Range Comments SODIUM (test code=NA) 139 mmol/L 136-145 POTASSIUM (test code=K) 3.6 mmol/L 3.5-5.1 CHLORIDE (test code=CL) 103.0 mmol/L 98-107 CARBON DIOXIDE (test code=CO2) 28.0 mmol/L 21-32 ANION GAP (test code=GAP) 11.6 10-20 GLUCOSE (test code=GLU) 104 mg/dL 74-106 BLOOD UREA NITROGEN (test code=BUN) 9 mg/dL 7-18 GLOMERULAR FILTRATION RATE (test code=GFR) > 60 mL/min >=60 Estimated GFR by using Modified MDRD formula.Chronic kidney disease is defined as either kidney damageor GFR <60 mL/min/1.73 m2 for >3 months. CREATININE (test code=CREAT) 0.50 mg/dL 0.55-1.02 Note change in reference range due to change in reagent. BUN/CREATININE RATIO (test code=BUN/CREA) 18.0 10-20 TOTAL PROTEIN (test code=PROT) 6.5 gram/dL 6.4-8.2 ALBUMIN (test code=ALB) 3.3 g/dL 3.4-5.0 GLOBULIN (test code=GLOB) 3.2 gram/dL 2.7-4.2 ALBUMIN/GLOBULIN RATIO (test code=A/G) 1.0 0.75-1.50 CALCIUM (test code=CA) 8.8 mg/dL 8.5-10.1 BILIRUBIN TOTAL (test code=BILT) 0.80 mg/dL 0.0-1.0 SGOT/AST (test code=AST) 13 IUnit/L 15-37 SGPT/ALT (test code=ALT) 17 IUnit/L 12-78 ALKALINE PHOSPHATASE TOTAL (test code=ALKP) 94 IUnit/L 45-117 Note change in reference range due to change in reagent. [id number] 04:09:00* Test Item Value Reference Range Comments PHOSPHORUS (test code=PHOS) 3.4 mg/dL 2.5-4.9 [id number] 04:09:00* Test Item Value Reference Range Comments MAGNESIUM (test code=MAG) 2.2 mg/dL 1.8-2.4 CALCIUM [id number] 04:09:00* Test Item Value Reference Range Comments CALCIUM IONIZED (test code=YASSINE) 1.30 mmol/L 1.12-1.32 COMPREHENSIVE METABOLIC [id number] 04:01:00* Test Item Value Reference Range Comments SODIUM (test code=NA) 139 mmol/L 136-145 POTASSIUM (test code=K) 3.6 mmol/L 3.5-5.1 CHLORIDE (test code=CL) 103.0 mmol/L 98-107 CARBON DIOXIDE (test code=CO2) mmol/L 21-32 ANION GAP (test code=GAP) 10-20 GLUCOSE (test code=GLU) mg/dL 74-106 BLOOD UREA NITROGEN (test code=BUN) mg/dL 7-18 GLOMERULAR FILTRATION RATE (test code=GFR) mL/min >=60 CREATININE (test code=CREAT) mg/dL 0.55-1.02 BUN/CREATININE RATIO (test code=BUN/CREA) 10-20 TOTAL PROTEIN (test code=PROT) gram/dL 6.4-8.2 ALBUMIN (test code=ALB) g/dL 3.4-5.0 GLOBULIN (test code=GLOB) gram/dL 2.7-4.2 ALBUMIN/GLOBULIN RATIO (test code=A/G) 0.75-1.50 CALCIUM (test code=CA) mg/dL 8.5-10.1 BILIRUBIN TOTAL (test code=BILT) mg/dL 0.0-1.0 SGOT/AST (test code=AST) IUnit/L 15-37 SGPT/ALT (test code=ALT) IUnit/L 12-78 ALKALINE PHOSPHATASE TOTAL (test code=ALKP) IUnit/L 45-117 [id number] 04:01:00* Test Item Value Reference Range Comments PHOSPHORUS (test code=PHOS) mg/dL 2.5-4.9 [id number] 04:01:00* Test Item Value Reference Range Comments MAGNESIUM (test code=MAG) mg/dL 1.8-2.4 CALCIUM [id number] 04:01:00* Test Item Value Reference Range Comments CALCIUM IONIZED (test code=YASSINE) 1.30 mmol/L 1.12-1.32 COMPREHENSIVE METABOLIC [id number] 03:56:00* Test Item Value Reference Range Comments SODIUM (test code=NA) mmol/L 136-145 POTASSIUM (test code=K) mmol/L 3.5-5.1 CHLORIDE (test code=CL) mmol/L 98-107 CARBON DIOXIDE (test code=CO2) mmol/L 21-32 ANION GAP (test code=GAP) 10-20 GLUCOSE (test code=GLU) mg/dL 74-106 BLOOD UREA NITROGEN (test code=BUN) mg/dL 7-18 GLOMERULAR FILTRATION RATE (test code=GFR) mL/min >=60 CREATININE (test code=CREAT) mg/dL 0.55-1.02 BUN/CREATININE RATIO (test code=BUN/CREA) 10-20 TOTAL PROTEIN (test code=PROT) gram/dL 6.4-8.2 ALBUMIN (test code=ALB) g/dL 3.4-5.0 GLOBULIN (test code=GLOB) gram/dL 2.7-4.2 ALBUMIN/GLOBULIN RATIO (test code=A/G) 0.75-1.50 CALCIUM (test code=CA) mg/dL 8.5-10.1 BILIRUBIN TOTAL (test code=BILT) mg/dL 0.0-1.0 SGOT/AST (test code=AST) IUnit/L 15-37 SGPT/ALT (test code=ALT) IUnit/L 12-78 ALKALINE PHOSPHATASE TOTAL (test code=ALKP) IUnit/L 45-117 [id number] 03:56:00* Test Item Value Reference Range Comments PHOSPHORUS (test code=PHOS) mg/dL 2.5-4.9 [id number] 03:56:00* Test Item Value Reference Range Comments MAGNESIUM (test code=MAG) mg/dL 1.8-2.4 CALCIUM [id number] 03:56:00* Test Item Value Reference Range Comments CALCIUM IONIZED (test code=YASSINE) 1.30 mmol/L 1.12-1.32 B-TYPE NATRIURETIC [id number] 03:52:00* Test Item Value Reference Range Comments B-TYPE NATRIURETIC PEPTIDE (test code=BNP) 196.16 pgram/mL 0-100 CBC W/AUTO [id number] 03:07:00* Test Item Value Reference Range Comments WHITE BLOOD CELL (test code=WBC) 11.4 K/mm3 4.5-12.5 RED BLOOD CELL (test code=RBC) 4.08 mill/mm3 3.7-5.2 HEMOGLOBIN (test code=HGB) 12.9 gram/dL 11.5-15.5 HEMATOCRIT (test code=HCT) 37.1 % 36.0-46.0 MEAN CELL VOLUME (test code=MCV) 90.9 fL 80-98 MEAN CELL HGB (test code=MCH) 31.6 picogram 27.0-33.0 MEAN CELL HGB CONCETRATION (test code=MCHC) 34.8 gram/dL 33.0-36.0 RED CELL DISTRIBUTION WIDTH (test code=RDW) 13.7 % 11.6-16.2 RED CELL DISTRIBUTION WIDTH SD (test code=RDW-SD) 45.6 fL 37.0-51.0 PLATELET COUNT (test code=PLT) 211 K/mm3 150-450 MEAN PLATELET VOLUME (test code=MPV) 11.8 fL 6.7-11.0 NEUTROPHIL % (test code=NT%) 65.7 % 39.0-69.0 IMMATURE GRANULOCYTE % (test code=IG%) 0.5 % 0.0-5.0 LYMPHOCYTE % (test code=LY%) 25.2 % 25.0-55.0 MONOCYTE % (test code=MO%) 8.2 % 0.0-10.0 EOSINOPHIL % (test code=EO%) 0.2 % 0.0-5.0 BASOPHIL % (test code=BA%) 0.2 % 0.0-1.0 NUCLEATED RBC % (test code=NRBC%) 0.0 % 0-0 NEUTROPHIL # (test code=NT#) 7.48 K/mm3 1.8-7.7 IMMATURE GRANULOCYTE # (test code=IG#) 0.06 x10 3/uL 0-0.03 LYMPHOCYTE # (test code=LY#) 2.86 K/mm3 1.0-5.0 MONOCYTE # (test code=MO#) 0.93 K/mm3 0-0.8 EOSINOPHIL # (test code=EO#) 0.02 K/mm3 0.0-0.5 BASOPHIL # (test code=BA#) 0.02 K/mm3 0.0-0.2 NUCLEATED RBC # (test code=NRBC#) 0.00 K/mm3 0.0-0.1 MANUAL DIFF REQUIRED (test code=MDIFF) NO CBC W/AUTO [id number] 03:01:00* Test Item Value Reference Range Comments WHITE BLOOD CELL (test code=WBC) K/mm3 4.5-12.5 RED BLOOD CELL (test code=RBC) mill/mm3 3.7-5.2 HEMOGLOBIN (test code=HGB) 12.9 gram/dL 11.5-15.5 HEMATOCRIT (test code=HCT) 37.1 % 36.0-46.0 MEAN CELL VOLUME (test code=MCV) fL 80-98 MEAN CELL HGB (test code=MCH) picogram 27.0-33.0 MEAN CELL HGB CONCETRATION (test code=MCHC) gram/dL 33.0-36.0 RED CELL DISTRIBUTION WIDTH (test code=RDW) % 11.6-16.2 RED CELL DISTRIBUTION WIDTH SD (test code=RDW-SD) fL 37.0-51.0 PLATELET COUNT (test code=PLT) K/mm3 150-450 MEAN PLATELET VOLUME (test code=MPV) fL 6.7-11.0 NEUTROPHIL % (test code=NT%) % 39.0-69.0 IMMATURE GRANULOCYTE % (test code=IG%) % 0.0-5.0 LYMPHOCYTE % (test code=LY%) % 25.0-55.0 MONOCYTE % (test code=MO%) % 0.0-10.0 EOSINOPHIL % (test code=EO%) % 0.0-5.0 BASOPHIL % (test code=BA%) % 0.0-1.0 NEUTROPHIL # (test code=NT#) K/mm3 1.8-7.7 LYMPHOCYTE # (test code=LY#) K/mm3 1.0-5.0 MONOCYTE # (test code=MO#) K/mm3 0-0.8 EOSINOPHIL # (test code=EO#) K/mm3 0.0-0.5 BASOPHIL # (test code=BA#) K/mm3 0.0-0.2 BASIC METABOLIC [id number] 18:04:00* Test Item Value Reference Range Comments SODIUM (test code=NA) 140 mmol/L 136-145 POTASSIUM (test code=K) 3.6 mmol/L 3.5-5.1 CHLORIDE (test code=CL) 103.0 mmol/L 98-107 CARBON DIOXIDE (test code=CO2) 28.0 mmol/L 21-32 ANION GAP (test code=GAP) 12.6 10-20 GLUCOSE (test code=GLU) 119 mg/dL 74-106 BLOOD UREA NITROGEN (test code=BUN) 10 mg/dL 7-18 GLOMERULAR FILTRATION RATE (test code=GFR) > 60 mL/min >=60 Estimated GFR by using Modified MDRD formula.Chronic kidney disease is defined as either kidney damageor GFR <60 mL/min/1.73 m2 for >3 months. CREATININE (test code=CREAT) 0.60 mg/dL 0.55-1.02 Note change in reference range due to change in reagent. BUN/CREATININE RATIO (test code=BUN/CREA) 16.7 10-20 CALCIUM (test code=CA) 8.6 mg/dL 8.5-10.1 Specimen 4+ Hemolysed.Results MAY NOT be accurate due to hemolysis.PHOSPHORUS 2019-11-09 18:04:00* Test Item Value Reference Range Comments PHOSPHORUS (test code=PHOS) 3.1 mg/dL 2.5-4.9 Specimen 4+ Hemolysed.Results MAY NOT be accurate due to hemolysis.MAGNESIUM 2019-11-09 18:04:00* Test Item Value Reference Range Comments MAGNESIUM (test code=MAG) 2.2 mg/dL 1.8-2.4 Specimen 4+ Hemolysed.Results MAY NOT be accurate due to hemolysis.BASIC METABOLIC [id number] 18:00:00* Test Item Value Reference Range Comments SODIUM (test code=NA) 140 mmol/L 136-145 POTASSIUM (test code=K) 3.6 mmol/L 3.5-5.1 CHLORIDE (test code=CL) 103.0 mmol/L 98-107 CARBON DIOXIDE (test code=CO2) mmol/L 21-32 ANION GAP (test code=GAP) 10-20 GLUCOSE (test code=GLU) mg/dL 74-106 BLOOD UREA NITROGEN (test code=BUN) mg/dL 7-18 GLOMERULAR FILTRATION RATE (test code=GFR) mL/min >=60 CREATININE (test code=CREAT) mg/dL 0.55-1.02 BUN/CREATININE RATIO (test code=BUN/CREA) 10-20 CALCIUM (test code=CA) mg/dL 8.5-10.1 Specimen 4+ Hemolysed.Results MAY NOT be accurate due to hemolysis.PHOSPHORUS 2019-11-09 18:00:00* Test Item Value Reference Range Comments PHOSPHORUS (test code=PHOS) mg/dL 2.5-4.9 Specimen 4+ Hemolysed.Results MAY NOT be accurate due to hemolysis.MAGNESIUM 2019-11-09 18:00:00* Test Item Value Reference Range Comments MAGNESIUM (test code=MAG) mg/dL 1.8-2.4 Specimen 4+ Hemolysed.Results MAY NOT be accurate due to hemolysis.HARDWARE 2019-11-09 15:26:00 RUN DATE: 11/09/19 [facility] PAGE 1 RUN TIME: 1526 Specimen Inqui ry RUN USER: INTERFACE PATIENT: BREANN CRUZ ACCT #: [id number] LOC: AMBROSEI U #: [id number] AGE/SX: 49/F ROOM: [facility] RE11/07/19REG DR: Adolfo Lr MD : 70 BED: A DIS: STATUS: ADM IN TLOC: SPEC #: [id number] RECD: 11/08/19 STATUS: SHAKEEL BRANCH #: [id number] SRINIVASA: 11/07/19- SUBM DR: Adolfo Lr MD ENTERED: 11/08/19-1029 SP TYPE: HARDWARE OT DR: Gamaliel FERRERA MD, Roozbeh MDORDERED: GROSS COPIES TO: Domingo FERRERA MD [address] [facility] [place] [address] Adolfo Lr MD [address] [facility]. [address] [place] [address] Gilson Olivares MD [address] [facility] [address] [place] [address] PROCEDURES: GROSS (11/09/19-1448) TI SSUES: HARD PALATE - AND SCREWS CLINICAL HISTORY COLLECTION DATE: 11/07/19 LEFT POSTERIOR COMMUNICATING ARTERY ANEURYSM FINAL D IAGNOSIS Plate and screws, removal: CRANIOPLASTY PLATE AND SCREWS (KRISTY SS IDENTIFICATION) ATTACHED FRAGMENTS OF SKELETAL MUSCLE AND DENSE CONNEC TIVE TISSUE RRB/sm D 01217, 29815 CONTINUED ON NEXT PAGE RUN DATE: 11/09/19 [facility] PAGE 2 RUN TIME: 1526 Specimen Inquiry RUN USER: INTERFACE SPEC #: [id number] PATIENT: BREANN CRUZ #[id number] (Continued)------- ----- MACROSCOPIC The specimen is received in formalin, labeled wi th the patient's name, and identified as "plates and screws for ID". It consi sts of a roughly triangular perforated metal plate measuring 6.3 x up to 4.2 c m in diameter with thickness of less than 0.1 cm. A small amount of red-pink soft tissue is attached to the plate. This transitions to light dobson glisteni ng membranous tissue that spreads over the surface of the plate. Received sep arately are six screws measuring 3 mm overall length with shaft diameters up t o 1 mm. An additional fragment of metal is present measuring 0.6 x 0.2 x less than 0.1 cm. This has a small amount of attached pink soft tissue and appears to be a small fragment of the perforated plate. Soft tissue is submitted for histologic evaluation in a single cassette. GROSS PERFORMED AT [facility] [address] [place] [address] (p)[phone] MICROSCOPIC All of the sta ins, including any controls performed, stain appropriately. MICROSCOPIC PE RFORMED AT [facility] [address] [place] [address] [phone] PERFORMING SITE Diagno sis performed at: [facility], [place] [address] [place] [address] Signed SIGNATURE ON FILE Kirby Rosales MD 11/09/19 1526 END OF REPORT - CT HEAD/BRAIN W/O [id number] 07:01:00 Name: BREANN CRUZ [facility] : 1970 Age/S: 49 / F [address] Unit #: [id number] Loc: Deborah SHONDA [address] Phys: Sharon Lr MD Acct: [id number] Di s Date: Status: ADM IN PHONE #: Exam Date: 11/09/2019 0330 FAX #: Reason: FOLLOW-UP CT EXAMS: CPT CODE: [id number] CT HEAD/BRAIN W/O CONT 12104 HISTORY: Follow-up post a neurysm clipping. COMPARISON: November 18, 2019. Loca tion: [facility]. CT brain without contrast: Automated exposure control. Patient is status post left supraclinoid aneurysm clip resulting in artifact. Postop extra-axial air bifrontally and in the left frontal lateral subdural space. 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 This pattern is essentially unchanged from previous examination. Infarct of indeterminate age within the left basal ganglia. No large te rritorial infarcts. No acute hemorrhage is noted. No herniation or hydro cephalus or midline shift. 4th ventricle is midline. Dobson-white matter d ifferentiation is preserved. The paranasal sinuses are clear. Mas toid air cells are clear. Craniectomy defect/cranioplasty in the left fro ntal parietal location. IMPRESSION: Status pos t left supraclinoid aneurysm clipping with residual postop air and extra -axial spaces bifrontally and lateral left frontal and parietal subdural space. 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 No acute territorial vascular infarction. Infarct of indeterminate age within the left basal ganglia noted again. No acute hemorrhage. No herniation, hydrocephalus or midline shift. Electron ically Signed by Ant Ortega on 11/09/2019 at 0701 Reported and signed by: Khurram Ortega M.D. CC: Domingo FERRERA MD; Luci Lr MD Technologist:NURY CERVANTES CT CTDI: DLP: Trnscb Date/Time: 11/09/2019 (700) t.SDR.TH4 Orig Print D/T: S: 11/09/2019 (0704) PAGE 1 Signed Report BASIC METABOLIC [id number] 06:15:00* Test Item Value Reference Range Comments SODIUM (test code=NA) 143 mmol/L 136-145 POTASSIUM (test code=K) 3.6 mmol/L 3.5-5.1 CHLORIDE (test code=CL) 107.0 mmol/L 98-107 CARBON DIOXIDE (test code=CO2) 30.0 mmol/L 21-32 ANION GAP (test code=GAP) 9.6 10-20 GLUCOSE (test code=GLU) 98 mg/dL 74-106 BLOOD UREA NITROGEN (test code=BUN) 11 mg/dL 7-18 GLOMERULAR FILTRATION RATE (test code=GFR) > 60 mL/min >=60 Estimated GFR by using Modified MDRD formula.Chronic kidney disease is defined as either kidney damageor GFR <60 mL/min/1.73 m2 for >3 months. CREATININE (test code=CREAT) 0.60 mg/dL 0.55-1.02 Note change in reference range due to change in reagent. BUN/CREATININE RATIO (test code=BUN/CREA) 18.3 10-20 CALCIUM (test code=CA) 8.7 mg/dL 8.5-10.1 [id number] 06:15:00* Test Item Value Reference Range Comments PHOSPHORUS (test code=PHOS) 3.2 mg/dL 2.5-4.9 [id number] 06:15:00* Test Item Value Reference Range Comments MAGNESIUM (test code=MAG) 2.2 mg/dL 1.8-2.4 CALCIUM [id number] 06:15:00* Test Item Value Reference Range Comments CALCIUM IONIZED (test code=YASSINE) 1.27 mmol/L 1.12-1.32 BASIC METABOLIC [id number] 06:04:00* Test Item Value Reference Range Comments SODIUM (test code=NA) 143 mmol/L 136-145 POTASSIUM (test code=K) 3.6 mmol/L 3.5-5.1 CHLORIDE (test code=CL) 107.0 mmol/L 98-107 CARBON DIOXIDE (test code=CO2) 30.0 mmol/L 21-32 ANION GAP (test code=GAP) 9.6 10-20 GLUCOSE (test code=GLU) 98 mg/dL 74-106 BLOOD UREA NITROGEN (test code=BUN) 11 mg/dL 7-18 GLOMERULAR FILTRATION RATE (test code=GFR) > 60 mL/min >=60 Estimated GFR by using Modified MDRD formula.Chronic kidney disease is defined as either kidney damageor GFR <60 mL/min/1.73 m2 for >3 months. CREATININE (test code=CREAT) 0.60 mg/dL 0.55-1.02 Note change in reference range due to change in reagent. BUN/CREATININE RATIO (test code=BUN/CREA) 18.3 10-20 CALCIUM (test code=CA) 8.7 mg/dL 8.5-10.1 [id number] 06:04:00* Test Item Value Reference Range Comments PHOSPHORUS (test code=PHOS) 3.2 mg/dL 2.5-4.9 [id number] 06:04:00* Test Item Value Reference Range Comments MAGNESIUM (test code=MAG) 2.2 mg/dL 1.8-2.4 CALCIUM [id number] 06:04:00* Test Item Value Reference Range Comments CALCIUM IONIZED (test code=YASSINE) mmol/L 1.12-1.32 CBC W/AUTO [id number] 05:25:00* Test Item Value Reference Range Comments WHITE BLOOD CELL (test code=WBC) 16.9 K/mm3 4.5-12.5 RED BLOOD CELL (test code=RBC) 3.77 mill/mm3 3.7-5.2 HEMOGLOBIN (test code=HGB) 11.7 gram/dL 11.5-15.5 HEMATOCRIT (test code=HCT) 36.4 % 36.0-46.0 MEAN CELL VOLUME (test code=MCV) 96.6 fL 80-98 MEAN CELL HGB (test code=MCH) 31.0 picogram 27.0-33.0 MEAN CELL HGB CONCETRATION (test code=MCHC) 32.1 gram/dL 33.0-36.0 RED CELL DISTRIBUTION WIDTH (test code=RDW) 14.1 % 11.6-16.2 RED CELL DISTRIBUTION WIDTH SD (test code=RDW-SD) 49.8 fL 37.0-51.0 PLATELET COUNT (test code=PLT) 218 K/mm3 150-450 MEAN PLATELET VOLUME (test code=MPV) 12.0 fL 6.7-11.0 NEUTROPHIL % (test code=NT%) 76.5 % 39.0-69.0 IMMATURE GRANULOCYTE % (test code=IG%) 0.8 % 0.0-5.0 LYMPHOCYTE % (test code=LY%) 14.3 % 25.0-55.0 MONOCYTE % (test code=MO%) 8.3 % 0.0-10.0 EOSINOPHIL % (test code=EO%) 0.0 % 0.0-5.0 BASOPHIL % (test code=BA%) 0.1 % 0.0-1.0 NUCLEATED RBC % (test code=NRBC%) 0.0 % 0-0 NEUTROPHIL # (test code=NT#) 12.92 K/mm3 1.8-7.7 IMMATURE GRANULOCYTE # (test code=IG#) 0.14 x10 3/uL 0-0.03 LYMPHOCYTE # (test code=LY#) 2.42 K/mm3 1.0-5.0 MONOCYTE # (test code=MO#) 1.40 K/mm3 0-0.8 EOSINOPHIL # (test code=EO#) 0.00 K/mm3 0.0-0.5 BASOPHIL # (test code=BA#) 0.02 K/mm3 0.0-0.2 NUCLEATED RBC # (test code=NRBC#) 0.00 K/mm3 0.0-0.1 CBC W/AUTO [id number] 05:24:00* Test Item Value Reference Range Comments WHITE BLOOD CELL (test code=WBC) K/mm3 4.5-12.5 RED BLOOD CELL (test code=RBC) mill/mm3 3.7-5.2 HEMOGLOBIN (test code=HGB) 11.7 gram/dL 11.5-15.5 HEMATOCRIT (test code=HCT) 36.4 % 36.0-46.0 MEAN CELL VOLUME (test code=MCV) fL 80-98 MEAN CELL HGB (test code=MCH) picogram 27.0-33.0 MEAN CELL HGB CONCETRATION (test code=MCHC) gram/dL 33.0-36.0 RED CELL DISTRIBUTION WIDTH (test code=RDW) % 11.6-16.2 RED CELL DISTRIBUTION WIDTH SD (test code=RDW-SD) fL 37.0-51.0 PLATELET COUNT (test code=PLT) K/mm3 150-450 MEAN PLATELET VOLUME (test code=MPV) fL 6.7-11.0 NEUTROPHIL % (test code=NT%) % 39.0-69.0 IMMATURE GRANULOCYTE % (test code=IG%) % 0.0-5.0 LYMPHOCYTE % (test code=LY%) % 25.0-55.0 MONOCYTE % (test code=MO%) % 0.0-10.0 EOSINOPHIL % (test code=EO%) % 0.0-5.0 BASOPHIL % (test code=BA%) % 0.0-1.0 NEUTROPHIL # (test code=NT#) K/mm3 1.8-7.7 LYMPHOCYTE # (test code=LY#) K/mm3 1.0-5.0 MONOCYTE # (test code=MO#) K/mm3 0-0.8 EOSINOPHIL # (test code=EO#) K/mm3 0.0-0.5 BASOPHIL # (test code=BA#) K/mm3 0.0-0.2 - CT HEAD/BRAIN W/O [id number] 16:36:00 Name: BREANN CRUZ [facility] : 1970 Age/S: 49 / F [address] [facility] Unit #: [id number] Loc: [place] [address] Phys: Adolfo Lr MD Acct: [id number] Dis Date: Status: ADM IN PHONE #: [phone] Exam Date: 11/08/2019 4803 FAX #: [phone] Reason: CONFUSION EXAMS: CPT CODE: [id number] CT HEAD/BRAIN W/O CONT 10245 REASON FOR EXAM: CONFUSION EXAM ORDER DATE: 11/08/2019 4:04 PM Ordering: Adolfo Lr MD Attending:Adolfo Lr MD Location:[facility] PROCEDURE: - CT HEAD/BRAIN W/O CONT COMPARISON: CTA of the head 11/07/2019 FINDINGS: CT images of the brain were obtained without IV contrast. Dose modulation, iterative reconstruction, and/or weight based adjustment of the MA/KV was utilized to reduce the radiation dose to as low as reasonably achievable. Post op changes with craniectomy defect, pneumocephalus and minimal subarachnoid hemorrhage status post clipping of the known left ICA/peak, aneurysm. Associated edema of the left frontal temporal lobe noted. No evidence of midline shift, mass effect is new development of a small hypodense area in the left basal ganglia suggestive of possible acute nonhemorrhagic infarct IMPRESSION: Possible small acute nonhemorrhagic infarct in the left basal ganglia at 1636 Reported and signed by: Neri Portillo M.D. CC: Domingo FERRERA MD; Adolfo Lr MD Technologist:Camryn Cason RT(R) CTDI: DLP: Trnscb Date/Time: 11/08/2019 (1636) t.SDR.VTL Orig Print D/T: S: 11/08/2019 (1436) PAGE 1 Signed Report - XR CHEST 1 [id number] 08:23:00 FAX: Allan Kirby [phone] [place]: St: ADM FAX: Domingo RANDOLPH MD [phone] FAX: Adolfo Walsh MD [phone] Name: NANCYVAISHNAVICarine EUGENIO [facility] : 1970 Age/S: 49/F [address] [facility] Unit #: [id number] Loc: V.S24 [place] [address] Phys: Allan Kirby Acct: [id number] Dis Date: Status: ADM IN ONE #: [phone] Exam Date: 11/08/2019 6412 FAX #: [phone] Reason: updated pulm view EXAMS: CPT CODE: [id number] XR CHEST 1 V 96247 REASON FOR EXAM: updated pulm view Exam Order Date: 11/08/2019 12:00 AM Ordering Ant: OZZY Argueta PROCEDURE: - XR CHEST 1 V COMPARISON: 2 view chest x-ray November 03, 2019 F INDINGS: Right IJ central line terminates in the SVC. Ther e is mild subsegmental atelectasis in the lung bases. Lungs are otherwise clear with no pleural effusion or pneumothorax. Cardiomediastinal silhouette, musculoskeletal structures, and upper abdomen or radiographica lly unremarkable. IMPRESSION: Mild bibasilar sub segmental atelectasis. Lungs are otherwise clear. Location: A at 0823 Reported and signed by: Alber Gayle MD CC: Allan Kirby; Domingo FERRERA MD; Adolfo Lr MD Technologist: MARLINE SALMERON JR Trnscrd Date/Time/By: 11/08/2019 (822) : By: [id number] Orig Print D/T: S: 11/08/2019 (08) PAGE 1 Signed Report BASIC METABOLIC [id number] 01:39:00* Test Item Value Reference Range Comments SODIUM (test code=NA) 144 mmol/L 136-145 POTASSIUM (test code=K) 3.7 mmol/L 3.5-5.1 CHLORIDE (test code=CL) 108.0 mmol/L 98-107 CARBON DIOXIDE (test code=CO2) 26.0 mmol/L 21-32 ANION GAP (test code=GAP) 13.7 10-20 GLUCOSE (test code=GLU) 106 mg/dL 74-106 BLOOD UREA NITROGEN (test code=BUN) 7 mg/dL 7-18 GLOMERULAR FILTRATION RATE (test code=GFR) > 60 mL/min >=60 Estimated GFR by using Modified MDRD formula.Chronic kidney disease is defined as either kidney damageor GFR <60 mL/min/1.73 m2 for >3 months. CREATININE (test code=CREAT) 0.90 mg/dL 0.55-1.02 Note change in reference range due to change in reagent. BUN/CREATININE RATIO (test code=BUN/CREA) 7.8 10-20 CALCIUM (test code=CA) 8.9 mg/dL 8.5-10.1 [id number] 01:39:00* Test Item Value Reference Range Comments PHOSPHORUS (test code=PHOS) 3.3 mg/dL 2.5-4.9 [id number] 01:39:00* Test Item Value Reference Range Comments MAGNESIUM (test code=MAG) 1.7 mg/dL 1.8-2.4 CALCIUM [id number] 01:39:00* Test Item Value Reference Range Comments CALCIUM IONIZED (test code=YASSINE) 1.34 mmol/L 1.12-1.32 BASIC METABOLIC [id number] 01:33:00* Test Item Value Reference Range Comments SODIUM (test code=NA) 144 mmol/L 136-145 POTASSIUM (test code=K) 3.7 mmol/L 3.5-5.1 CHLORIDE (test code=CL) 108.0 mmol/L 98-107 CARBON DIOXIDE (test code=CO2) mmol/L 21-32 ANION GAP (test code=GAP) 10-20 GLUCOSE (test code=GLU) mg/dL 74-106 BLOOD UREA NITROGEN (test code=BUN) mg/dL 7-18 GLOMERULAR FILTRATION RATE (test code=GFR) mL/min >=60 CREATININE (test code=CREAT) mg/dL 0.55-1.02 BUN/CREATININE RATIO (test code=BUN/CREA) 10-20 CALCIUM (test code=CA) mg/dL 8.5-10.1 [id number] 01:33:00* Test Item Value Reference Range Comments PHOSPHORUS (test code=PHOS) mg/dL 2.5-4.9 [id number] 01:33:00* Test Item Value Reference Range Comments MAGNESIUM (test code=MAG) mg/dL 1.8-2.4 CALCIUM [id number] 01:33:00* Test Item Value Reference Range Comments CALCIUM IONIZED (test code=YASSINE) 1.34 mmol/L 1.12-1.32 CBC W/AUTO [id number] 01:31:00* Test Item Value Reference Range Comments WHITE BLOOD CELL (test code=WBC) 17.0 K/mm3 4.5-12.5 RED BLOOD CELL (test code=RBC) 3.96 mill/mm3 3.7-5.2 HEMOGLOBIN (test code=HGB) 12.4 gram/dL 11.5-15.5 HEMATOCRIT (test code=HCT) 38.2 % 36.0-46.0 MEAN CELL VOLUME (test code=MCV) 96.5 fL 80-98 MEAN CELL HGB (test code=MCH) 31.3 picogram 27.0-33.0 MEAN CELL HGB CONCETRATION (test code=MCHC) 32.5 gram/dL 33.0-36.0 RED CELL DISTRIBUTION WIDTH (test code=RDW) 13.8 % 11.6-16.2 RED CELL DISTRIBUTION WIDTH SD (test code=RDW-SD) 49.5 fL 37.0-51.0 PLATELET COUNT (test code=PLT) 252 K/mm3 150-450 MEAN PLATELET VOLUME (test code=MPV) 11.4 fL 6.7-11.0 NEUTROPHIL % (test code=NT%) 84.7 % 39.0-69.0 IMMATURE GRANULOCYTE % (test code=IG%) 0.5 % 0.0-5.0 LYMPHOCYTE % (test code=LY%) 9.4 % 25.0-55.0 MONOCYTE % (test code=MO%) 5.3 % 0.0-10.0 EOSINOPHIL % (test code=EO%) 0.0 % 0.0-5.0 BASOPHIL % (test code=BA%) 0.1 % 0.0-1.0 NUCLEATED RBC % (test code=NRBC%) 0.0 % 0-0 NEUTROPHIL # (test code=NT#) 14.43 K/mm3 1.8-7.7 IMMATURE GRANULOCYTE # (test code=IG#) 0.08 x10 3/uL 0-0.03 LYMPHOCYTE # (test code=LY#) 1.61 K/mm3 1.0-5.0 MONOCYTE # (test code=MO#) 0.90 K/mm3 0-0.8 EOSINOPHIL # (test code=EO#) 0.00 K/mm3 0.0-0.5 BASOPHIL # (test code=BA#) 0.02 K/mm3 0.0-0.2 NUCLEATED RBC # (test code=NRBC#) 0.00 K/mm3 0.0-0.1 BASIC METABOLIC [id number] 01:31:00* Test Item Value Reference Range Comments SODIUM (test code=NA) mmol/L 136-145 POTASSIUM (test code=K) mmol/L 3.5-5.1 CHLORIDE (test code=CL) mmol/L 98-107 CARBON DIOXIDE (test code=CO2) mmol/L 21-32 ANION GAP (test code=GAP) 10-20 GLUCOSE (test code=GLU) mg/dL 74-106 BLOOD UREA NITROGEN (test code=BUN) mg/dL 7-18 GLOMERULAR FILTRATION RATE (test code=GFR) mL/min >=60 CREATININE (test code=CREAT) mg/dL 0.55-1.02 BUN/CREATININE RATIO (test code=BUN/CREA) 10-20 CALCIUM (test code=CA) mg/dL 8.5-10.1 [id number] 01:31:00* Test Item Value Reference Range Comments PHOSPHORUS (test code=PHOS) mg/dL 2.5-4.9 [id number] 01:31:00* Test Item Value Reference Range Comments MAGNESIUM (test code=MAG) mg/dL 1.8-2.4 CALCIUM [id number] 01:31:00* Test Item Value Reference Range Comments CALCIUM IONIZED (test code=YASSINE) 1.34 mmol/L 1.12-1.32 CBC W/AUTO [id number] 01:28:00* Test Item Value Reference Range Comments WHITE BLOOD CELL (test code=WBC) K/mm3 4.5-12.5 RED BLOOD CELL (test code=RBC) mill/mm3 3.7-5.2 HEMOGLOBIN (test code=HGB) 12.4 gram/dL 11.5-15.5 HEMATOCRIT (test code=HCT) 38.2 % 36.0-46.0 MEAN CELL VOLUME (test code=MCV) fL 80-98 MEAN CELL HGB (test code=MCH) picogram 27.0-33.0 MEAN CELL HGB CONCETRATION (test code=MCHC) gram/dL 33.0-36.0 RED CELL DISTRIBUTION WIDTH (test code=RDW) % 11.6-16.2 RED CELL DISTRIBUTION WIDTH SD (test code=RDW-SD) fL 37.0-51.0 PLATELET COUNT (test code=PLT) K/mm3 150-450 MEAN PLATELET VOLUME (test code=MPV) fL 6.7-11.0 NEUTROPHIL % (test code=NT%) % 39.0-69.0 IMMATURE GRANULOCYTE % (test code=IG%) % 0.0-5.0 LYMPHOCYTE % (test code=LY%) % 25.0-55.0 MONOCYTE % (test code=MO%) % 0.0-10.0 EOSINOPHIL % (test code=EO%) % 0.0-5.0 BASOPHIL % (test code=BA%) % 0.0-1.0 NEUTROPHIL # (test code=NT#) K/mm3 1.8-7.7 LYMPHOCYTE # (test code=LY#) K/mm3 1.0-5.0 MONOCYTE # (test code=MO#) K/mm3 0-0.8 EOSINOPHIL # (test code=EO#) K/mm3 0.0-0.5 BASOPHIL # (test code=BA#) K/mm3 0.0-0.2 - CTA [id number] 17:39:00 Name: NANCYVAISHNAVICarine BECKER [facility] : 1970 Age/S: 49 / F [address] [facility] Unit #: [id number] Loc: [place] [address] Phys: Adolfo Lr MD Acct: [id number] Dis Date: Status: ADM IN PHONE #: [phone] Exam Date: 11/07/2019 1600 FAX #: [phone] Reason: s/p aneurysm clipping EXAMS: CPT CODE: [id number] CTA HEAD 70471 REASON FOR EXAM: s/p aneurysm clipping EXAM ORDER DATE: 11/07/2019 1:57 PM Ordering: Adolfo Lr MD Attending:Adolfo Lr MD Location:[facility] PROCEDURE: - CTA HEAD COMPARISON: 09/12/2019 FINDINGS: Axial images of the head were obtained with IV contrast. Dose reduction techniques were applied. 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 CC: Domingo FERRERA MD; Adolfo Lr MD Technologist:Camryn Cason RT(R); Suly CTDI: DLP: Trnscb Date/Time: 11/07/2019 (1739) [email or web address] Orig Print D/T: S: 11/07/2019 (2777) PAGE 1 Signed Report - XR CHEST 2 [id number] 16:10:00 FAX: Adolfo Walsh MD [phone] [place]: O St: PRE Name: BREANN AGUILAR [facility] : [birth year] Age/S: 49/F [address] [facility] Unit #: [id number] [facility] [place] [address] Phys: Adolfo Lr MD Acct: [id number] Dis Date: Status: PRE IN PHONE #: [phone] Exam Date: 11/03/2019 1508 FAX #: [phone] Reason: PRE OP EXAMS: CPT CODE: [id number] XR CHEST 2 V 70513 REASON FOR EXAM: PRE OP Exam Order Date: 11/03/2019 2:04 PM Ordering Ant: Adolfo Lr MD PROCEDURE: - XR CHEST 2 V COMPARISON: None FINDINGS: There is subsegmental atelectasis versus parenchymal scarring in what appears to be the middle lobe. Manner the lowell gs are clear. There is no pleural effusion or pneumothorax. Pulmonary vas cularity is within normal limits. Cardiomediastinal silhouet te is normal in size for technique. The mediastinal contours are within no rmal limits. Musculoskeletal structures are within normal limits. The visualized upper abdomen is within normal limits. IMPRESSION: The lungs are clear other than subsegmental atel ectasis versus parenchymal scarring in the middle lobe. Location: [facility] at 1610 Reported and signed by: Alber Gayle MD CC: Adolfo Lr MD Technologist: RT Sheryl(R) Trnscrd Date/Time/By: 020 (1610) : By: [email or web address] Orig Print D/T: S: 11/03/2019 (7393) PAGE 1 Signed Report PROTHROMBIN [id number] 15:11:00* Test Item Value Reference Range Comments PROTHROMBIN TIME PATIENT (test code=PTP) 11.2 seconds 9.0-14.0 INTERNATIONAL NORMAL RATIO (test code=INR) 1.0 0.8-1.2 The therapeutic range for oral anticoagulant therapy formost indications is an international normalized ratio (INR)of between 2.0 and 3.0. The recommended therapeutic INRrange for various clinical situations is listed below: Clinical Situation INR range Pulmonary e mbolism treatment (2.0-3.0)Venous thrombosis treatmentVenous thrombosis prophylaxis (high risk surgery)Prevention of systemic embolism from: Acute myocardial infarction Valvular heart disease Atrial fibrillation Mechanical prosthetic heart valves (2.5-3.5) THROMBOPLASTIN TIME [id number] 15:11:00* Test Item Value Reference Range Comments THROMBOPLASTIN TIME PARTIAL (test code=PTT) 32.0 seconds 25.0-36.5 BASIC METABOLIC [id number] 15:08:00* Test Item Value Reference Range Comments SODIUM (test code=NA) 146 mmol/L 136-145 POTASSIUM (test code=K) 3.3 mmol/L 3.5-5.1 CHLORIDE (test code=CL) 110.0 mmol/L 98-107 CARBON DIOXIDE (test code=CO2) 32.0 mmol/L 21-32 ANION GAP (test code=GAP) 7.3 10-20 GLUCOSE (test code=GLU) 123 mg/dL 74-106 BLOOD UREA NITROGEN (test code=BUN) 12 mg/dL 7-18 GLOMERULAR FILTRATION RATE (test code=GFR) > 60 mL/min >=60 Estimated GFR by using Modified MDRD formula.Chronic kidney disease is defined as either kidney damageor GFR <60 mL/min/1.73 m2 for >3 months. CREATININE (test code=CREAT) 0.70 mg/dL 0.55-1.02 Note change in reference range due to change in reagent. BUN/CREATININE RATIO (test code=BUN/CREA) 17.1 10-20 CALCIUM (test code=CA) 9.3 mg/dL 8.5-10.1 BASIC METABOLIC [id number] 15:01:00* Test Item Value Reference Range Comments SODIUM (test code=NA) 146 mmol/L 136-145 POTASSIUM (test code=K) 3.3 mmol/L 3.5-5.1 CHLORIDE (test code=CL) 110.0 mmol/L 98-107 CARBON DIOXIDE (test code=CO2) mmol/L 21-32 ANION GAP (test code=GAP) 10-20 GLUCOSE (test code=GLU) mg/dL 74-106 BLOOD UREA NITROGEN (test code=BUN) mg/dL 7-18 GLOMERULAR FILTRATION RATE (test code=GFR) mL/min >=60 CREATININE (test code=CREAT) mg/dL 0.55-1.02 BUN/CREATININE RATIO (test code=BUN/CREA) 10-20 CALCIUM (test code=CA) 9.3 mg/dL 8.5-10.1 CBC W/AUTO [id number] 14:40:00* Test Item Value Reference Range Comments WHITE BLOOD CELL (test code=WBC) 7.3 K/mm3 4.5-12.5 RED BLOOD CELL (test code=RBC) 4.37 mill/mm3 3.7-5.2 HEMOGLOBIN (test code=HGB) 13.6 gram/dL 11.5-15.5 HEMATOCRIT (test code=HCT) 41.5 % 36.0-46.0 MEAN CELL VOLUME (test code=MCV) 95.0 fL 80-98 MEAN CELL HGB (test code=MCH) 31.1 picogram 27.0-33.0 MEAN CELL HGB CONCETRATION (test code=MCHC) 32.8 gram/dL 33.0-36.0 RED CELL DISTRIBUTION WIDTH (test code=RDW) 13.5 % 11.6-16.2 RED CELL DISTRIBUTION WIDTH SD (test code=RDW-SD) 47.4 fL 37.0-51.0 PLATELET COUNT (test code=PLT) 303 K/mm3 150-450 MEAN PLATELET VOLUME (test code=MPV) 11.0 fL 6.7-11.0 NEUTROPHIL % (test code=NT%) 50.3 % 39.0-69.0 IMMATURE GRANULOCYTE % (test code=IG%) 0.4 % 0.0-5.0 LYMPHOCYTE % (test code=LY%) 40.5 % 25.0-55.0 MONOCYTE % (test code=MO%) 6.2 % 0.0-10.0 EOSINOPHIL % (test code=EO%) 2.2 % 0.0-5.0 BASOPHIL % (test code=BA%) 0.4 % 0.0-1.0 NUCLEATED RBC % (test code=NRBC%) 0.0 % 0-0 NEUTROPHIL # (test code=NT#) 3.66 K/mm3 1.8-7.7 IMMATURE GRANULOCYTE # (test code=IG#) 0.03 x10 3/uL 0-0.03 LYMPHOCYTE # (test code=LY#) 2.95 K/mm3 1.0-5.0 MONOCYTE # (test code=MO#) 0.45 K/mm3 0-0.8 EOSINOPHIL # (test code=EO#) 0.16 K/mm3 0.0-0.5 BASOPHIL # (test code=BA#) 0.03 K/mm3 0.0-0.2 NUCLEATED RBC # (test code=NRBC#) 0.00 K/mm3 0.0-0.1 MANUAL DIFF REQUIRED (test code=MDIFF) NO CBC W/AUTO [id number] 14:38:00* Test Item Value Reference Range Comments WHITE BLOOD CELL (test code=WBC) K/mm3 4.5-12.5 RED BLOOD CELL (test code=RBC) mill/mm3 3.7-5.2 HEMOGLOBIN (test code=HGB) 13.6 gram/dL 11.5-15.5 HEMATOCRIT (test code=HCT) 41.5 % 36.0-46.0 MEAN CELL VOLUME (test code=MCV) fL 80-98 MEAN CELL HGB (test code=MCH) picogram 27.0-33.0 MEAN CELL HGB CONCETRATION (test code=MCHC) gram/dL 33.0-36.0 RED CELL DISTRIBUTION WIDTH (test code=RDW) % 11.6-16.2 RED CELL DISTRIBUTION WIDTH SD (test code=RDW-SD) fL 37.0-51.0 PLATELET COUNT (test code=PLT) K/mm3 150-450 MEAN PLATELET VOLUME (test code=MPV) fL 6.7-11.0 NEUTROPHIL % (test code=NT%) % 39.0-69.0 IMMATURE GRANULOCYTE % (test code=IG%) % 0.0-5.0 LYMPHOCYTE % (test code=LY%) % 25.0-55.0 MONOCYTE % (test code=MO%) % 0.0-10.0 EOSINOPHIL % (test code=EO%) % 0.0-5.0 BASOPHIL % (test code=BA%) % 0.0-1.0 NEUTROPHIL # (test code=NT#) K/mm3 1.8-7.7 LYMPHOCYTE # (test code=LY#) K/mm3 1.0-5.0 MONOCYTE # (test code=MO#) K/mm3 0-0.8 EOSINOPHIL # (test code=EO#) K/mm3 0.0-0.5 BASOPHIL # (test code=BA#) K/mm3 0.0-0.2 - [facility] [id number] 13:17:00 Name: BREANN CRUZ [facility] : 1970 Age/S: 49 / F Alexy Sanchez [facility] Unit #: [id number] Loc: [place] [address] Phys: Foreign Bearden MD Acct: [id number] Dis Date: Status: [facility] PHONE #: [phone] Exam Date: 10/04/2019 1448 FAX #: [phone] Reason: EXAMS: CPT CODE: [id number] [facility] ACCESS 23944 Fluoro Time: DAP (Gy m2): Air Kerma (mGy): EXAM: Angiography of the cervicothoracic arch and selective magnification angiography of both common and internal carotid arteries; rotational angiography; 3-D angiographic reconstructions performed on an independent workstation; Ultrasound-guided vascular access; INFORMATION: Patient with headaches; CT angiography has demonstrated a left P-comm aneurysm. Patient has been referred for preop angiogram. TECHNIQUE AND FINDINGS: Informed consent was obtained and the patient was placed supine on the angiography table. Her right groin was prepped and draped in the usual sterile fashion. Xylocaine was administered and using sonographic guidance the right common femoral artery was accessed with a micropuncture system. Sonographic images were stored in PACS. An 035 guidewire, a 5 Peruvian vascular access sheath and a 5 Peruvian Omni Flush catheter were inserted. The catheter was advanced into the ascending aorta and thoracic arteriography was performed. The cervicothoracic arch was widely patent. There is the anatomic variation of a common takeoff of the brachiocephalic trunk and the left common carotid artery (cold so- called "bovine arch"). Otherwise, supraaortic vessels including both common carotid and subclavian arteries as well as both vertebral arteries are patent. The Omni Flush catheter was then replaced with a Anderson 1 catheter which was used to selectively catheterize the left common carotid artery. Angiography showed a normal left common, internal and external carotid artery. Using an exchange length Glidewire, the Anderson 1 ca theter was then replaced with a 4 Peruvian Kumpe catheter which was advanced into the left internal carotid artery. Selective magnification angiography was performed from different angles followed by rotational angiography and subsequent 3-D reconstruction, using an independent workstation. These studies confirm the CT findings of a saccular aneurysm originating n ear the origin of the left posterior communicating artery. The aneurysm me asures 7 mm in length, 4 mm in diameter and has a 3 mm neck. Otherwi se, the left middle and anterior cerebral arteries are unremarkable. The r ight anterior cerebral artery was also opacified via injection into the le ft ICA, documenting patency of the anterior communicating artery. Selectiv e angiography of the right common carotid artery showed this vessel as wel l as the right external and internal carotid arteries to be unremarkable. Selective magnification angiography of the right internal carotid artery a nd the right middle cerebral artery are unremarkable. A hypoplastic right A1 segment was opacified. No additional aneurysms were identified an d there was no evidence of PAGE 1 Signed Report (CONTINUED) Name: BREANN CRUZ [facility] : 1970 Age/S: 49 / F [address] [facility] Unit #: [id number] Loc: [place] [address] Phys: Foreign Bearden MD Acct: [id number] Dis Date: Status: DEP [place] PHONE #: [phone] Exam Date: 10/04/2019 1448 FAX #: [phone] Reason: EXAMS: CPT CODE: [id number] [facility] ACCESS [id number] Fluoro T mellisa: DAP (Gy m2): Air Kerma (mGy): <Continued> significant vascular disease. In view of the previous good quality CT angiogram no selective angiographic studies of the vertebral basilar s ystem were performed. The star close system was used in the right groin an d hemostasis was promptly achieved. No complications. IMPRESSION: 1. Patent cervical thoracic arch and patent supraaortic ve ssels with the anatomic variation of a "bovine arch". 2. Selecti ve magnification angiography including rotational and 3-D angiography co nfirmed presence of a saccular aneurysm originating near the origin of t he left posterior communicating artery. This solitary aneurysm measures 7 x 4 mm and has a narrow neck of 3 mm. 3. Hypoplastic right A1 segment. 4. No other abnormalities. Fluoroscopy Time: 616.8 sec CAK : 319 mGy DAP : 5284 mGy sq cm Location code: [facility] at 1317 Reported and signed by: Foreign Bearden M.D. CC: Adolfo Lr MD; Foreign Bearden MD Technologist: Sandra Carballo Trnsc[facility] Date/Time: 10/11/2019 (1317) [email or web address] Orig Print D/T: S: 10/11/2019 (1320) PAGE 2 Signed Report - SP INT CAROTID ANGIO [id number] 13:17:00 Name: BREANN CRUZ [facility] : 1970 Age/S: 49 / F Alexy House Unit #: [id number] Loc: [place] [address] Phys: Foreign Bearden MD Acct: [id number] Dis Date: Status: [facility] PHONE #: [phone] Exam Date: 10/04/2019 1442 FAX #: [phone] Reason: EXAMS: CPT CODE: [id number] SP INT CAROTID ANGIO UNI 74388 Fluoro Time: 616.8 DAP (Gy m2): 52.84 Air Kerma (mGy): 319 EXAM: Angiography of the cervicothoracic arch and selective magnification angiography of both common and internal carotid arteries; rotational angiography; 3-D angiographic reconstructions performed on an independent workstation; Ultrasound-guided vascular access; INFORMATION: Patient with headaches; CT angiography has demonstrated a left P-comm aneurysm. Patient has been referred for preop angiogram. TECHNIQUE AND FINDINGS: Informed consent was obtained and the patient was placed supine on the angiography table. Her right groin was prepped and draped in the usual sterile fashion. Xylocaine was administered and using sonographic guidance the right common femoral artery was accessed with a micropuncture system. Sonographic images were stored in PACS. An 035 guidewire, a 5 Peruvian vascular access sheath and a 5 Peruvian Omni Flush catheter were inserted. The catheter was advanced into the ascending aorta and thoracic arteriography was performed. The cervicothoracic arch was widely patent. There is the anatomic variation of a common takeoff of the brachiocephalic trunk and the left common carotid artery (cold so-called "bovine arch"). Otherwise, supraaortic vessels including both common carotid and subclavian arteries as well as both vertebral arteries are patent. The Omni Flush catheter was then replaced with a Anderson 1 catheter which was used to selectively catheterize the left common carotid artery. Angiography showed a normal left common, internal and external carotid artery. Using an exchange length Glidewire, the Anderson 1 ca theter was then replaced with a 4 Peruvian Kumpe catheter which was advanced into the left internal carotid artery. Selective magnification angiography was performed from different angles followed by rotational angiography and subsequent 3-D reconstruction, using an independent workstation. These studies confirm the CT findings of a saccular aneurysm originating n ear the origin of the left posterior communicating artery. The aneurysm me asures 7 mm in length, 4 mm in diameter and has a 3 mm neck. Otherwi se, the left middle and anterior cerebral arteries are unremarkable. The r ight anterior cerebral artery was also opacified via injection into the le ft ICA, documenting patency of the anterior communicating artery. Selectiv e angiography of the right common carotid artery showed this vessel as wel l as the right external and internal carotid arteries to be unremarkable. Selective magnification angiography of the right internal carotid artery a nd the right middle cerebral artery are unremarkable. A hypoplastic right A1 segment was opacified. No additional aneurysms were identified an d there was no evidence of PAGE 1 Signed Report (CONTINUED) Name: BREANN CRUZ [facility] : 1970 Age/S: 49 / F [address] [facility] Unit #: [id number] Loc: [facility] [place] [address] Phys: Foreign Bearden MD Acct: [id number] Dis Date: [place] [facility]ONE #: [phone] Exam Date: 10/04/2019 1447 FAX #: [phone] Reason: EXAMS: CPT CODE: [id number] INT CAROTID ANGIO UNI 11243 Fluoro T mellisa: 616.8 DAP (Gy m2): 52.84 Air Kerma (mGy): 319 <Continued> significant vascular disease. In view of the previous good quality CT angiogram no selective angiographic studies of the vertebral basilar s ystem were performed. The star close system was used in the right groin an d hemostasis was promptly achieved. No complications. IMPRESSION: 1. Patent cervical thoracic arch and patent supraaortic ve ssels with the anatomic variation of a "bovine arch". 2. Selecti ve magnification angiography including rotational and 3-D angiography co nfirmed presence of a saccular aneurysm originating near the origin of t he left posterior communicating artery. This solitary aneurysm measures 7 x 4 mm and has a narrow neck of 3 mm. 3. Hypoplastic right A1 segment. 4. No other abnormalities. Fluoroscopy Time: 616.8 sec CAK : 319 mGy DAP : 5284 mGy sq cm Location code: [facility] at 1317 Reported and signed by: Foreign Bearden M.D. CC: Adolfo Lr MD; Foreign Bearden MD Technologist: Sandra Carballo Trnwyb Date/Time: 10/11/2019 (3387) [email or web address] Orig Print D/T: S: 10/11/2019 (3163) PAGE 2 Signed Report - NSP THOR AORT W/ANGIO 2019-10-11 13:17:00 Name: BREANN CRUZ [facility] : 1970 Age/S: 49 / F [address] Unit #: [id number] Loc: [place] [address] Phys: Foreign Bearden MD Acct: [id number] Dis Date: Status: [facility] PHONE #: [phone] Exam Date: 10/04/2019 1448 FAX #: [phone] Reason: EXAMS: CPT CODE: [id number] NSP THOR AORT W/ANGIO 50960 Fluoro Time: 616.8 DAP (Gy m2): 52.84 Air Kerma (mGy): 319 EXAM: Angiography of the cervicothoracic arch and selective magnification angiography of both common and internal carotid arteries; rotational angiography; 3-D angiographic reconstructions performed on an independent workstation; Ultrasound-guided vascular access; INFORMATION: Patient with headaches; CT angiography has demonstrated a left P-comm aneurysm. Patient has been referred for preop angiogram. TECHNIQUE AND FINDINGS: Informed consent was obtained and the patient was placed supine on the angiography table. Her right groin was prepped and draped in the usual sterile fashion. Xylocaine was administered and using sonographic guidance the right common femoral artery was accessed with a micropuncture system. Sonographic images were stored in PACS. An 035 guidewire, a 5 Peruvian vascular access sheath and a 5 Peruvian Omni Flush catheter were inserted. The catheter was advanced into the ascending aorta and thoracic arteriography was performed. The cervicothoracic arch was widely patent. There is the anatomic variation of a common takeoff of the brachiocephalic trunk and the left common carotid artery (cold so-called "bovine arch"). Otherwise, supraaortic vessels including both common carotid and subclavian arteries as well as both vertebral arteries are patent. The Omni Flush catheter was then replaced with a Anderson 1 catheter which was used to selectively catheterize the left common carotid artery. Angiography showed a normal left common, internal and external carotid artery. Using an exchange length Glidewire, the Anderson 1 catheter was then replaced with a 4 Peruvian Kumpe catheter which was advanced into the left internal carotid artery. Selective magnification angiography was performed from different angles followed by rotational angiography and subsequent 3-D reconstruction, using an independent workstation. These studies confirm the CT findings of a saccular aneurysm originating near the origin of the left posterior communicating artery. The aneurysm me asures 7 mm in length, 4 mm in diameter and has a 3 mm neck. Otherwi se, the left middle and anterior cerebral arteries are unremarkable. The r ight anterior cerebral artery was also opacified via injection into the le ft ICA, documenting patency of the anterior communicating artery. Selectiv e angiography of the right common carotid artery showed this vessel as wel l as the right external and internal carotid arteries to be unremarkable. Selective magnification angiography of the right internal carotid artery a nd the right middle cerebral artery are unremarkable. A hypoplastic right A1 segment was opacified. No additional aneurysms were identified an d there was no evidence of PAGE 1 Signed Report (CONTINUED) Name: BREANN CRUZ [facility] : 1970 Age/S: 49 / F [address] [facility] Unit #: [id number] Loc: [place] [address] Phys: Foreign Bearden MD Acct: [id number] Dis Date: Status: [facility] PHONE #: [phone] Exam Date: 10/04/2019 7677 FAX #: [phone] Reason: EXAMS: CPT CODE: [id number] NSP THOR AORT W/ANGIO 80206 Fluoro T mellisa: 616.8 DAP (Gy m2): 52.84 Air Kerma (mGy): 319 <Continued> significant vascular disease. In view of the previous good quality CT angiogram no selective angiographic studies of the vertebral basilar s ystem were performed. The star close system was used in the right groin an d hemostasis was promptly achieved. No complications. IMPRESSION: 1. Patent cervical thoracic arch and patent supraaortic ve ssels with the anatomic variation of a "bovine arch". 2. Selecti ve magnification angiography including rotational and 3-D angiography co nfirmed presence of a saccular aneurysm originating near the origin of t he left posterior communicating artery. This solitary aneurysm measures 7 x 4 mm and has a narrow neck of 3 mm. 3. Hypoplastic right A1 segment. 4. No other abnormalities. Fluoroscopy Time: 616.8 sec CAK : 319 mGy DAP : 5284 mGy sq cm Location code: [facility] at 1317 Reported and signed by: Foreign Bearden M.D. CC: Adolfo Lr MD; Froeign Bearden MD Technologist: Sandra Carballo [facility] Date/Time: 10/11/2019 (6417) Crispin Orig Print D/T: S: 10/11/2019 (8476) PAGE 2 Signed Report - SP INT CAROTID ANGIO [id number] 13:17:00 Name: BREANN CRUZ [facility] : 1970 Age/S: 49 / F [address] [facility] Unit #: [id number] Loc: [place] [address] Phys: Foreign Bearden MD Acct: [id number] Dis Date: Status: [facility] PHONE #: [phone] Exam Date: 10/04/2019 1440 FAX #: [phone] Reason: EXAMS: CPT CODE: [id number] SP INT CAROTID ANGIO UNI 46285 Fluoro Time: 616.8 DAP (Gy m2): 52.84 Air Kerma (mGy): 319 EXAM: Angiography of the cervicothoracic arch and selective magnification angiography of both common and internal carotid arteries; rotational angiography; 3-D angiographic reconstructions performed on an independent workstation; Ultrasound-guided vascular access; INFORMATION: Patient with headaches; CT angiography has demonstrated a left P-comm aneurysm. Patient has been referred for preop angiogram. TECHNIQUE AND FINDINGS: Informed consent was obtained and the patient was placed supine on the angiography table. Her right groin was prepped and draped in the usual sterile fashion. Xylocaine was administered and using sonographic guidance the right common femoral artery was accessed with a micropuncture system. Sonographic images were stored in PACS. An 035 guidewire, a 5 Peruvian vascular access sheath and a 5 Peruvian Omni Flush catheter were inserted. The catheter was advanced into the ascending aorta and thoracic arteriography was performed. The cervicothoracic arch was widely patent. There is the anatomic variation of a common takeoff of the brachiocephalic trunk and the left common carotid artery (cold so-called "bovine arch"). Otherwise, supraaortic vessels including both common carotid and subclavian arteries as well as both vertebral arteries are patent. The Omni Flush catheter was then replaced with a Anderson 1 catheter which was used to selectively catheterize the left common carotid artery. Angiography showed a normal left common, internal and external carotid artery. Using an exchange length Glidewire, the Anderson 1 ca theter was then replaced with a 4 Peruvian Kumpe catheter which was advanced into the left internal carotid artery. Selective magnification angiography was performed from different angles followed by rotational angiography and subsequent 3-D reconstruction, using an independent workstation. These studies confirm the CT findings of a saccular aneurysm originating n ear the origin of the left posterior communicating artery. The aneurysm me asures 7 mm in length, 4 mm in diameter and has a 3 mm neck. Otherwi se, the left middle and anterior cerebral arteries are unremarkable. The r ight anterior cerebral artery was also opacified via injection into the le ft ICA, documenting patency of the anterior communicating artery. Selectiv e angiography of the right common carotid artery showed this vessel as wel l as the right external and internal carotid arteries to be unremarkable. Selective magnification angiography of the right internal carotid artery a nd the right middle cerebral artery are unremarkable. A hypoplastic right A1 segment was opacified. No additional aneurysms were identified an d there was no evidence of PAGE 1 Signed Report (CONTINUED) Name: BREANN CRUZ [facility] : 1970 Age/S: 49 / F [address] [facility] Unit #: [id number] Loc: [place] [address] Phys: Foreign Bearden MD Acct: [id number] Dis Date: Status: [facility] PHONE #: [phone] Exam Date: 10/04/2019 1448 FAX #: [phone] Reason: EXAMS: CPT CODE: [id number] SP INT CAROTID ANGIO UNI 75786 Fluoro T mellisa: 616.8 DAP (Gy m2): 52.84 Air Kerma (mGy): 319 <Continued> significant vascular disease. In view of the previous good quality CT angiogram no selective angiographic studies of the vertebral basilar s ystem were performed. The star close system was used in the right groin an d hemostasis was promptly achieved. No complications. IMPRESSION: 1. Patent cervical thoracic arch and patent supraaortic ve ssels with the anatomic variation of a "bovine arch". 2. Selecti ve magnification angiography including rotational and 3-D angiography co nfirmed presence of a saccular aneurysm originating near the origin of t he left posterior communicating artery. This solitary aneurysm measures 7 x 4 mm and has a narrow neck of 3 mm. 3. Hypoplastic right A1 segment. 4. No other abnormalities. Fluoroscopy Time: 616.8 sec CAK : 319 mGy DAP : 5284 mGy sq cm Location code: [facility] at 1317 Reported and signed by: Foreign Bearden M.D. CC: Adolfo Lr MD; Foreign Bearden MD Technologist: Sandra Carballo [facility] Date/Time: 10/11/2019 (1317) GraciaGRW Orig Print D/T: S: 10/11/2019 (8335) PAGE 2 Signed Report [id number] 15:01:00* Test Item Value Reference Range Comments GLUBED (test code=GLUBED) 70 mg/dL 74-106 Performed by certified french edge operator at [facility] COMPREHENSIVE METABOLIC [id number] 16:09:00* Test Item Value Reference Range Comments SODIUM (test code=NA) 144 mmol/L 136-145 POTASSIUM (test code=K) 3.1 mmol/L 3.5-5.1 CHLORIDE (test code=CL) 105.0 mmol/L 98-107 CARBON DIOXIDE (test code=CO2) 34.0 mmol/L 21-32 ANION GAP (test code=GAP) 8.1 10-20 GLUCOSE (test code=GLU) 75 mg/dL 74-106 BLOOD UREA NITROGEN (test code=BUN) 8 mg/dL 7-18 GLOMERULAR FILTRATION RATE (test code=GFR) > 60 mL/min >=60 Estimated GFR by using Modified MDRD formula.Chronic kidney disease is defined as either kidney damageor GFR <60 mL/min/1.73 m2 for >3 months. CREATININE (test code=CREAT) 0.60 mg/dL 0.55-1.02 Note change in reference range due to change in reagent. BUN/CREATININE RATIO (test code=BUN/CREA) 12.3 10-20 TOTAL PROTEIN (test code=PROT) 7.2 gram/dL 6.4-8.2 ALBUMIN (test code=ALB) 3.8 g/dL 3.4-5.0 GLOBULIN (test code=GLOB) 3.4 gram/dL 2.7-4.2 ALBUMIN/GLOBULIN RATIO (test code=A/G) 1.1 0.75-1.50 CALCIUM (test code=CA) 9.5 mg/dL 8.5-10.1 BILIRUBIN TOTAL (test code=BILT) 0.70 mg/dL 0.0-1.0 SGOT/AST (test code=AST) 14 IUnit/L 15-37 SGPT/ALT (test code=ALT) 17 IUnit/L 12-78 ALKALINE PHOSPHATASE TOTAL (test code=ALKP) 115 IUnit/L 45-117 Note change in reference range due to change in reagent. COMPREHENSIVE METABOLIC [id number] 16:05:00* Test Item Value Reference Range Comments SODIUM (test code=NA) 144 mmol/L 136-145 POTASSIUM (test code=K) 3.1 mmol/L 3.5-5.1 CHLORIDE (test code=CL) 105.0 mmol/L 98-107 CARBON DIOXIDE (test code=CO2) mmol/L 21-32 ANION GAP (test code=GAP) 10-20 GLUCOSE (test code=GLU) mg/dL 74-106 BLOOD UREA NITROGEN (test code=BUN) mg/dL 7-18 GLOMERULAR FILTRATION RATE (test code=GFR) mL/min >=60 CREATININE (test code=CREAT) mg/dL 0.55-1.02 BUN/CREATININE RATIO (test code=BUN/CREA) 10-20 TOTAL PROTEIN (test code=PROT) gram/dL 6.4-8.2 ALBUMIN (test code=ALB) g/dL 3.4-5.0 GLOBULIN (test code=GLOB) gram/dL 2.7-4.2 ALBUMIN/GLOBULIN RATIO (test code=A/G) 0.75-1.50 CALCIUM (test code=CA) mg/dL 8.5-10.1 BILIRUBIN TOTAL (test code=BILT) mg/dL 0.0-1.0 SGOT/AST (test code=AST) IUnit/L 15-37 SGPT/ALT (test code=ALT) IUnit/L 12-78 ALKALINE PHOSPHATASE TOTAL (test code=ALKP) IUnit/L 45-117 PROTHROMBIN [id number] 15:35:00* Test Item Value Reference Range Comments PROTHROMBIN TIME PATIENT (test code=PTP) 11.9 seconds 9.0-14.0 INTERNATIONAL NORMAL RATIO (test code=INR) 1.0 0.8-1.2 The therapeutic range for oral anticoagulant therapy formost indications is an international normalized ratio (INR)of between 2.0 and 3.0. The recommended therapeutic INRrange for various clinical situations is listed below: Clinical Situation INR range Pulmonary e mbolism treatment (2.0-3.0)Venous thrombosis treatmentVenous thrombosis prophylaxis (high risk surgery)Prevention of systemic embolism from: Acute myocardial infarction Valvular heart disease Atrial fibrillation Mechanical prosthetic heart valves (2.5-3.5) THROMBOPLASTIN TIME [id number] 15:35:00* Test Item Value Reference Range Comments THROMBOPLASTIN TIME PARTIAL (test code=PTT) 32.9 seconds 25.0-36.5 CBC W/AUTO [id number] 15:28:00* Test Item Value Reference Range Comments WHITE BLOOD CELL (test code=WBC) 9.7 K/mm3 4.5-12.5 RED BLOOD CELL (test code=RBC) 4.18 mill/mm3 3.7-5.2 HEMOGLOBIN (test code=HGB) 13.2 gram/dL 11.5-15.5 HEMATOCRIT (test code=HCT) 40.1 % 36.0-46.0 MEAN CELL VOLUME (test code=MCV) 95.9 fL 80-98 MEAN CELL HGB (test code=MCH) 31.6 picogram 27.0-33.0 MEAN CELL HGB CONCETRATION (test code=MCHC) 32.9 gram/dL 33.0-36.0 RED CELL DISTRIBUTION WIDTH (test code=RDW) 13.4 % 11.6-16.2 RED CELL DISTRIBUTION WIDTH SD (test code=RDW-SD) 47.3 fL 37.0-51.0 PLATELET COUNT (test code=PLT) 293 K/mm3 150-450 MEAN PLATELET VOLUME (test code=MPV) 11.9 fL 6.7-11.0 NEUTROPHIL % (test code=NT%) 53.4 % 39.0-69.0 IMMATURE GRANULOCYTE % (test code=IG%) 0.3 % 0.0-5.0 LYMPHOCYTE % (test code=LY%) 36.6 % 25.0-55.0 MONOCYTE % (test code=MO%) 7.0 % 0.0-10.0 EOSINOPHIL % (test code=EO%) 2.3 % 0.0-5.0 BASOPHIL % (test code=BA%) 0.4 % 0.0-1.0 NUCLEATED RBC % (test code=NRBC%) 0.0 % 0-0 NEUTROPHIL # (test code=NT#) 5.15 K/mm3 1.8-7.7 IMMATURE GRANULOCYTE # (test code=IG#) 0.03 x10 3/uL 0-0.03 LYMPHOCYTE # (test code=LY#) 3.54 K/mm3 1.0-5.0 MONOCYTE # (test code=MO#) 0.68 K/mm3 0-0.8 EOSINOPHIL # (test code=EO#) 0.22 K/mm3 0.0-0.5 BASOPHIL # (test code=BA#) 0.04 K/mm3 0.0-0.2 NUCLEATED RBC # (test code=NRBC#) 0.00 K/mm3 0.0-0.1 MANUAL DIFF REQUIRED (test code=MDIFF) NO CBC W/AUTO [id number] 15:23:00* Test Item Value Reference Range Comments WHITE BLOOD CELL (test code=WBC) K/mm3 4.5-12.5 RED BLOOD CELL (test code=RBC) mill/mm3 3.7-5.2 HEMOGLOBIN (test code=HGB) 13.2 gram/dL 11.5-15.5 HEMATOCRIT (test code=HCT) 40.1 % 36.0-46.0 MEAN CELL VOLUME (test code=MCV) fL 80-98 MEAN CELL HGB (test code=MCH) picogram 27.0-33.0 MEAN CELL HGB CONCETRATION (test code=MCHC) gram/dL 33.0-36.0 RED CELL DISTRIBUTION WIDTH (test code=RDW) % 11.6-16.2 RED CELL DISTRIBUTION WIDTH SD (test code=RDW-SD) fL 37.0-51.0 PLATELET COUNT (test code=PLT) K/mm3 150-450 MEAN PLATELET VOLUME (test code=MPV) fL 6.7-11.0 NEUTROPHIL % (test code=NT%) % 39.0-69.0 IMMATURE GRANULOCYTE % (test code=IG%) % 0.0-5.0 LYMPHOCYTE % (test code=LY%) % 25.0-55.0 MONOCYTE % (test code=MO%) % 0.0-10.0 EOSINOPHIL % (test code=EO%) % 0.0-5.0 BASOPHIL % (test code=BA%) % 0.0-1.0 NEUTROPHIL # (test code=NT#) K/mm3 1.8-7.7 LYMPHOCYTE # (test code=LY#) K/mm3 1.0-5.0 MONOCYTE # (test code=MO#) K/mm3 0-0.8 EOSINOPHIL # (test code=EO#) K/mm3 0.0-0.5 BASOPHIL # (test code=BA#) K/mm3 0.0-0.2 - CTA [id number] 19:06:00 Name: BREANN CRUZ [facility] : 1970 Age/S: 49 / F [place] Unit #: [id number] Loc: [place] [address] Phys: Adolfo Lr MD Acct: [id number] Dis Date: Status: REG CLI PHONE #: [phone] Exam Date: 09/12/2019 1414 FAX #: [phone] Reason: CEREBRAL ANEURYSM EXAMS: CPT CODE: [id number] CTA HEAD 58206 EXAM: CT of the head; INFORMATION: Nonruptured cerebral aneurysm; TECHNIQUE AND FINDINGS: CT dose reduction protocol; Helical scans through the head during intravenous infusion of contrast material. In addition to curvilinear reconstructions and axial scans, 3-D angiographic studies were generated on an independent workstation, using volume rendering and maximum intensity projection algorithms. Immediately lateral to the origin of the left P-comm there is a saccular aneurysm oriented posteriorly. It measures 7 mm in length and 4 mm in transverse diameter and has a narrow neck of approximately 3 mm diameter. It is a solitary aneurysm. Otherwise, the intracranial portions of the internal carotid arteries, both anterior and middle cerebral arteries, the intracranial portions of the vertebral arteries, the basilar artery and the posterior cerebral arteries are patent. There is a hypoplastic right A1 segment. No evidence of significant atherosc lerotic changes; no stenoses or vascular occlusions. IMPRE SSION: 1. Narrow neck aneurysm originating from the supraclinoid portion of the left ICA lateral to the origin of the left P-comm. It has a maximum diameter of 7 mm. 2. Otherwise, [place] and its tri butaries is unremarkable. Location code: [facility] at 1906 Reported and signed by: Foreign Bearden M.D. CC: Adolfo Lr MD Technologist:Deloris Martines,RT(R),CT CTDI: DLP: Trnscb Date/Time: 09/12/2019 (1905) GraciaGRW PAGE 1 Signed Report CREATININE W ESTIMATED [id number] 12:57:00* Test Item Value Reference Range Comments BEDSIDE CREATININE (test code=CREATBED) mg/dL 0.7-1.3 GLOMERULAR FILTRATION RATE POC (test code=GFRBED) 113 >60 CREATININE W ESTIMATED [id number] 12:57:00* Test Item Value Reference Range Comments BEDSIDE CREATININE (test code=CREATBED) 0.67 mg/dL 0.7-1.3 GLOMERULAR FILTRATION RATE POC (test code=GFRBED) > 60 >60 Previously reported result: 113 Edited by: SILVER on 09/12/19:21463209/12/19 1257: GFRBED previously reported as: 113 H PATHOLOGY [id number] 12:56:00- TISSUE CONSULTATION REPORTBACOVENANT HEALTH LEVELLANDDEPARTMENT OF PATHOLOGYP.[address]BEADOCT[facility] [place] [address] aDEEL KENROY HOYT M.D.JASON E. MATHERNE, M.D.JOSEPH M. WEMPE, M.D.__ Pa tient: BREANN CRUZ 1970 47 FRoom:Hosp#: [id number] Ordering Physician: Jazmín DO Rec.: 02/18/2017Date of Proc.: 02/18/2017Lab No.: [id number] PRE-O PERATIVE DIAGNOSIS:- Malignant neoplasm of female breastFINAL ANATOMIC DIAGN OSIS:A. LYMPH NODES, RIGHT SENTINEL, BIOPSY:- THREE SENTINEL LYMPH NODES NE GATIVE FOR MALIGNANCY (0/3)B. 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;- NO INVASIVE MALIGNANCY PRESENT;- NEGATIVE MARGINS OF EXCISIONSYNOPTIC RESULTS:Procedure: Excision with wire-g uided localizationLymph Node Sampling: [place] Lymph node(s)Specimen Laterality : RightTumor Site: Not specifiedSize of DCIS: 9 mmHistologic Type: Ductal Carcin amada in SituArchitectural Patterns: [place], SolidNuclear Grade: Grade IINecrosis: Present- centralMargins : Margins uninvolved by DCIS:1.5 cm from nearest lateral marginLymph Nodes: Total number of nodes examined: 3, Number sentinelnodes exa mined: 3Lymph Node Involvement:: Number of lymph nodes with macrometastases(>2 mm): 0, Number of lymph nodes with micrometastases (>0.2 mm to 2mm and/or >200 cells): 0, Number of lymph nodes with isolated tumorcells(less than or equal to 0.2 mm and less than or equal to 200cells): 0pT: pTis (DCIS)pN: pN0pM: Not a pplicableEstrogen Receptor (ER): Positive percentage of cells with nuclearpositi vity 90%Progesterone Receptor (PgR): Positive percentage of cells withnuclear po sitivity) 70%Ki-67 (Percent positive nuclei): Not performedCold Ischemia and Fix ation Times: Meet requirements specified inlatest version of the ASCO/CAP Guidel inesMethods: Fixative- FormalinComments: The breast prognostic factors listed ab ove were performedon the original diagnostic core biopsy ([id number]) at [facility]. The intensity of the ER and ME staining is not provided.These res ults are per the outside pathology report. I have notpersonally reviewed the sli chrissie.MICROSCOPIC EXAMINATION:- A. Twenty-nine Hsentinel lymph node specimen c ontains a total of three lymph nodes.All three of these lymph nodes are negative for malignancy.- B. Sections from the right needle localized excision showh igh-grade DCIS present only in slides B2 and B3. Biopsy sitechanges are also karen ntified in slide B3. The largest confluentfocus of DCIS seen is 9 mm (measured in slide B3). The DCIS issolid and comedo-type. No invasive malignancy is iden tified. DCISis removed from the nearest red inked lateral margin by at least 1. 5cm. The surgical margins are negative.FROZEN DIAGNOSIS:A. Intraoperative consu lt diagnosis (touch preparation):- Lymph nodes, right sentinel, biopsy: Two blue stained lymph nodesidentified grossly, both negative by touch preparations (VALERY).GROSS APPEARANCE:- A. The specimen is labeled "right sentinel node," and is receivedfresh for intraoperative consultation. There are two fragments o ffatty tissue which are 3.0 x 2.8 x 1.2 cm and 2.8 x 2.8 x 1.5 cm.Palpation reve als one dominant lymph node within each fatty tissuefragment. Both of these lym ph nodes are bisected longitudinally anddemonstrate staining with blue dye. Bot h nodes are sampled viatouch preparation. A third smaller ovoid 7 mm node is al soappreciated grossly but is not sampled by touch preparation. Thesmaller bisec mckenzie node is submitted as A1 while the larger bisectednode is submitted as A2. The 7 mm lymph node is inked black,bisected and submitted as A3. The remainder of the fibrofattytissue is submitted in cassettes A4 and A5.- B. The specime n is labeled "right breast mass." The specimen isreceived in a radiographic imm obilization device and is tagged withsutures to indicate the superior, lateral a nd deep positions. Thespecimen is 10.5 cm from superior to inferior, 8.5 cm lat erally and2.6 cm from superficial to deep. There is a localization needlewhich enters the specimen at the exact same point as the 12 o'clocksuperior suture and travels inferiorly through the central portionof the resection. A radiologic c lip is present in the specimenradiograph. The sclerotic fibrous area is palpabl e along the 8-9o'clock margin. There is also fibrosis and sclerosis on the wall ofthe inferior 4-6 o'clock portion of the excision. The entiresurgical margin is inked as follows: Blue-superficial, black-deep,orange-superior, red-lateral, yellow-inferior, green-medial. Thespecimen is serially sectioned revealing a f irm 1.3 cm area locatedalong the central and lateral aspect of the excision. A c ylindricalradiologic clip is identified centrally within this fibrous area. Noot her distinct masses are appreciated grossly. The areas offibrosis along the med ial and inferior aspects of the breast aregrossly consistent with fibrocystic ch vivienne. Sections are submittedas follows: B1 through 3-fibrous area at 3 o'clock (B3 withradiologic clip), V2Q7-brbzlbm breast tissue to include deep margin, B7- superficialmargin toward 6 o'clock, L1L27bvumaz at 6 o'clock, F43-bmobb nodule a t superficial 1-2 o'clock,I70-zolgphkyrj central superficial breast tissue B15-B 22 additionalsections from central portion of excisionPATHOLOGIST: Pilo Salcedo on Electronically Signed: 02/25/2017RADIOLOGIC EXAM, BRST SPECIMEN 2017-02-18 17:04:00[address] [id number] IMAGING REPORTPatient Name: BREANN CRUZ LDate of Service: [id number]: 47 Sex: F Order #: [id number] Room: EDOB: 1970 X-Ray Number: [id number] Record Number: [id number] Hospital Number: [id number] Physician: Neeraj SOLIS Physician: Billy SOLIS breast needle localizationRight breast surgical specimenHistory: Breast carcinoma.Risks, benefits and alternatives were discussed with the patient. Thepatient agreed to undergo the procedure and informed consent was obtained.Using lidocaine for local anesthesia, the right breast lesion was localizedand a wire was placed into position. The patient tolerated the procedure.The surgical specimen contains the lesion, intact wire and biopsy clip.Electronically Signed By: Damián Stout M.D., 02/18/2017 5:01 PMLegally authenticated by RADHA LIMA 2017-02-18 17:01:46BREAST NEEDLE [id number] 17:04:[address] [id number] IMAGING REPORTPatient Name: BREANN CRUZ of Service: [id number]: 47 Sex: F Order #: [id number] Room: EDOB: 1970 X-Ray Number: [id number] Record Number: [id number] Hospital Number: [id number] Physician: Neeraj SOLIS Physician: Billy SOLIS breast needle localizationRight breast surgical specimenHistory: Breast carcinoma.Risks, benefits and alternatives were discussed with the patient. Thepatient agreed to undergo the procedure and informed consent was obtained.Using lidocaine for local anesthesia, the right breast lesion was localizedand a wire was placed into position. The patient tolerated the procedure.The surgical specimen contains the lesion, intact wire and biopsy clip.Electronically Signed By: Damián Stout M.D., 02/18/2017 5:01 PMLegally authenticated by RADHA LIMA 2017-02-18 17:01:46LYMPHOSEEK SENTINAL [id number] 17:01:[address] [id number] IMAGING REPORTPatient Name: BREANN CRUZ of Service: [id number]: 47 Sex: F Order #: [id number] Room: EDOB: 1970 X-Ray Number: [id number] Record Number: [id number] Hospital Number: [id number] Physician: Neeraj SOLIS Physician: Billy SOLIS breast sentinel node injectionHistory: Breast carcinoma, sentinel node infection.Risks, benefits and alternatives were discussed with the patient regardingthe procedure. The patient agreed to undergo the procedure and informedconsent was obtained. 250 uCi technetium-99 Lymphoseek were injected intothe side breast at the 6:00 and 12:00 position. Imaging was then performedto confirm placement.Impression:Successful right breast sentinel node radiotracer injection.Electronically Signed By: Damián Stout M.D., 02/18/2017 4:58 PMLegally authenticated by RADHA LIMA 2017-02-18 16:58:44MRI BREAST W 2017-02-11 13:16:[address] [id number] IMAGING REPORTPatient Name: BREANN CRUZ of Service: [id number]: 47 Sex: F Order #: [id number] Room: OPEDOB: 1970 X-Ray Number: [id number] Record Number: [id number] Hospital Number: [id number] Physician: JOSUE SOLISTOrdering Physician: FRANCISCA SOLIS of the breasts with and without contrast 9:30 AMCorrelation study and date: Ultrasound and mammogram right breast date12/24/2016, mammogram dated 12/17/2016History: Right breast carcinoma.Technique: High-resolution dynamic imaging of the breasts was performed.MRI CAD was utilized for the interpretation of the current examination.Findings:The breasts demonstrate heterogeneously dense fibroglandular tissue.There is a right breast 6 x 5 mm intensely enhancing intramammary lymphcontaining a fatty notch noted at the 12:00 position demonstrating a type Ikinetic curve.Biopsy clip causes susceptibility artifact in the right slightly upperouter breast surgical site. There is no associated mass lesion or abnormalenhancement at the biopsy site. There are numerous tiny subcentimeter benign bilateral cysts scatteredthroughout both breasts.Bilateral axillary lymph nodes maintain fatty mynor. The largest on theright measures approximately 1.7 x 1.0 cm. The largest on the left measuresa pproximately 2.0 x 1.2 cm.Impression:BI-RADS Category 6, pathologically proven r ight breast carcinoma. Noevidence for malignancy within the left breast.Surgical follow-up is recommended.Electronically Signed By: Damián Stout M.D., 017 1:13 PMBIRADSLegally authenticated by RADHA LIMA 2017-02-11 13:13:36EKG 2017-02-11 13:10:00QRS Interval: 95msQT Interval: 407msQTC Interval: 400msP [place]: 43degQRS [place]: 43degT Wave [place]: 48degP-R Interval: 162msecRR Interval: 1034msecHeart Rate: 58bpmI 40 [place]: 50degT 40 [place]: 45degST [place]: 54degEKG Severity: - OTHERWISE NORMAL ECG -REPORT:Sinus bradycardiaREPORT:Low voltage, precordial leadsCHEST XR 2 [id number] 12:44:[address] [id number] IMAGING REPORTPatient Name: BREANN CRUZ LDate of Service: [id number]: 47 Sex: F Order #: [id number] Room: [facility]: 1970 X-Ray Number: [id number] Record Number: [id number] Hospital Number: [id number] Phy sician: Neeraj SOLIS Physician: Jenifer SOLIS.1238 hoursHistory: S hort of breath, hypertension.Technique: PA and lateral chest projections.Findin gs: PA and lateral views of the chest demonstrate normal heart sizeand clear lowell gs. No infiltrates or abnormalities are depicted. The osseousstructures appear i ntact.Impression:No acute-appearing cardiopulmonary abnormalities.Electronically Signed By: José Warren M.D., 02/11/2017 12:42 PMLegally authenticated by DMITRY Archibald 2017-02-11 12:42:22
[2019-12-29] MEDS ORDERED: CEFAZOLIN SOD 1 GM/NS 50ML 50 ML IV ONE (05:59)
[2019-12-29] MEDS ORDERED: LIDOCAINE 1% W/EPINEPHRINE 20 ML VIAL ONE (07:49)
[2019-12-29] MEDS ORDERED: MUPIROCIN 2% OINT 22 GM TUBE ONE (07:49)
[2019-12-29] MEDS ORDERED: BACITRACIN 50,000 UNIT VIAL ONE (08:12)
[2019-12-29] MEDS ORDERED: ACETAMINOPHEN 325 MG TAB PO PRN (09:15)
[2019-12-29] MEDS ORDERED: ONDANSETRON HCL INJ 2MG/ML 2ML 2 MG/ML VIAL IV PRN (09:15)
[2019-12-29] MEDS: VANCOMYCIN 1GM/NS 250 ML 250 ML IV SCH (09:15)
[2019-12-29] MEDS ORDERED: MORPHINE SULFATE 5 MG/ML VIAL IM PRN (09:15)
[2019-12-29] MEDS ORDERED: MAGNESIUM/ALUMINUM/SIMETHICONE 30 ML UDC PO PRN (09:15)
[2019-12-29] MEDS ORDERED: CEPACOL SORE THROAT LOZENGES PO PRN (09:15)
[2019-12-29] MEDS: LACTATED RINGER'S 1,000 ML IV SCH ×2 (09:15→17:35)
[2019-12-29] MEDS ORDERED: ZOLPIDEM TARTRATE 5 MG TAB PO PRN (09:15)
[2019-12-29] MEDS ORDERED: PROMETHAZINE HCL (IM) 25 MG/ML VIAL IM PRN (09:15)
[2019-12-29 13:35] VITALS: BP 132/78
--- NOTE | 2019-12-29 13:54 | NUR ---
The pt. arrived from the [facility] via bed in mildly sedated state. She opens her eyes when her named is called. There is no one here with the pt. for history . The dressing is intact with minor drainage noted.
--- NOTE | 2019-12-29 14:16 | NUR ---
Unable to complete adm assessment due to pt sedation post op and no family available.
[2019-12-29] MEDS ORDERED: POTASSIUM CHLORIDE 20MEQ/100ML 200 ML IV ONE (14:30)
[2019-12-29 16:30] VITALS: BP 132/79
[2019-12-29] MEDS: LEVETIRACETAM 500 MG TAB PO SCH (16:49)
--- NOTE | 2019-12-29 17:30 | Operative Report ---
DATE OF PROCEDURE: 12/29/2019 SURGEON: Alvaro Hernandez MD PREOPERATIVE DIAGNOSES: 1. Disruption of craniotomy wound. 2. 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 PROCEDURES: 1. Debridement of skin, subcutaneous tissue, excisional sharp. 2. Pedicled flap advancement closure of craniotomy wound, 50 cm2. ANESTHESIA: General. HISTORY: The patient is a 49-year-old female, who has a history of 3 craniotomies. The last craniotomy was performed in November of 2019 for repair of an aneurysm. The prior craniotomies were for a tumor and the patient had received postop radiation therapy to the scalp. The most recent history is that the patient underwent craniotomy without significant postoperative sequelae. The craniotomy coronal incision broke down. Neurosurgery referred the patient to Plastic Surgery and upon examination, it was noted that the internal prostatic plate placed after the craniotomy incision was exposed and infected. A combined approach where Plastic Surgery will open the wound, the Neurosurgical team will then remove as much of the exposed infected plate as possible and then the Plastic Surgical team will perform a flap closure of the wound. The risks, benefits, and alternatives of the treatment were discussed with the patient and the family, and they are prepared to undergo the procedure as outlined. PROCEDURE IN DETAIL: The patient was marked preoperatively in the holding area by both the Plastic Surgical team and the Neurosurgical team. The patient was brought to the operating theater and after the induction of adequate general anesthesia, the patient was prepped and draped in a supine position and a time-out was performed. The craniotomy incision that was coronal in nature had an open area of approximately 3 cm in the central aspect of the wound with the plate exposed. There was purulent exudate and this was cultured both aerobically and anaerobically. At this point, the remainder of the craniotomy incision was made through the skin and subcutaneous tissues. Bleeding controlled using electrocautery. The skin flaps were then elevated off the plate in the subgaleal plane until all of the exposed plate was readily accessible. At this point, the Neurosurgical team removed all of the exposed plate and this procedure will be dictated under separate cover. Once the plate had been removed and all the edges were smoothed out, the plastic surgical team came back in and then irrigated the wound with bacitracin antibiotic solution, approximately 1 L was used. Because of the prior radiation and the prior surgeries, the scalp was quite thickened, indurated, and not very mobile. It was felt that a pedicled flap coming from the parietal area and then advanced anteriorly and temporally would provide the best closure. Of note, there is exposed dural patch without any cranium for several centimeters requiring good vascularized tissue coverage. At this point, the flap was designed with limbs of 8 cm long and 6 cm wide indicating that the flap was 48 cm2. The proposed incision lines were then injected with 1% Xylocaine with epinephrine. After waiting an appropriate amount of time for maximum vasoconstrictive effect, the incision was made through the skin, subcutaneous tissue, and finally through the galea. The edges were made hemostatic using electrocautery. The flap was then elevated off the previously placed plate from years ago, which had well-vascularized tissue over it. At this point, the flap was then elevated and in order to advance without tension, the galea was scored transversely with distances of several centimeters between scoring portillo. Care was taken to ensure that the scoring did not encroach upon the vascular supply of the flap. Once the galea had been scored and released, the flap advanced easily to the other side of the wound and the skin edges were then sharply excised through the skin and subcutaneous tissue to remove all partially devitalized and colonized tissue. At this point, the flap was closed with a combination of 3-0 and 4-0 nylon sutures in an interrupted horizontal mattress fashion. There was noted to be good vascularity of the flap and no tension at the incision site. At completion of the procedure, Bactroban ointment, Xeroform gauze, and a sterile dressing were applied. The estimated blood loss for the plastic surgical part of the procedure was approximately 50-75 mL. The patient tolerated the procedure well and was brought to recovery room in satisfactory condition and then admitted to the Neurologic Surgical Service for overnight observation. MD HEATHER Ortiz/ALMA /[id number]
--- NOTE | 2019-12-29 18:05 | Operative Report ---
DATE OF PROCEDURE: 12/29/2019 SURGEON: Adolfo Lr MD PREOPERATIVE DIAGNOSIS: Cranial wound dehiscence with exposed cranial plate. POSTOPERATIVE DIAGNOSIS: Cranial wound dehiscence with exposed cranial plate. PROCEDURE: Removal of exposed cranial plate. CO-SURGEON: Alvaro Hernandez MD ANESTHESIA: General. 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 One month after that surgery, she presents with a 1-inch dehiscence in the midportion of her incision due to necrosis of the skin edges. There is no evidence of infection or CSF leakage. Underlying cranial plate from the most recent operation is partially exposed. The patient was taken to surgery by Dr. Alvaro Hernandez of Plastic Surgery for the purpose of closure of the cranial wound. During this operation, I scrubbed into remove the exposed portion of the cranial plate. PROCEDURE IN DETAIL: After induction of general anesthesia, the left side of the scalp was prepped and draped in sterile fashion. Dr. Hernandez made an incision to extend the region of dehiscence along the previous craniotomy scar superiorly and inferiorly. The underlying plate was exposed. The exposed portion of the plate was part of the larger cranioplasty plate that was placed in the most recent operation to supplement her previous cranioplasty plate. The exposed portion of the plate was carefully cut and removed. The underlying granulation tissue was cultured and removed. The underlying Lyoplant duraplasty material was exposed. The was no evidence of CSF leakage. The wound was then irrigated and the procedure was turned over back to Dr. Hernandez, who proceeded with closure of the wound. No intraoperative complications were encountered. Estimated blood loss was minimal. Adolfo Lr MD PP/MODL /[id number]
--- NOTE | 2019-12-29 18:15 | History and Physical ---
REASON FOR ADMISSION: Dehiscence of cranial wound. HISTORY OF PRESENT ILLNESS: The patient is a 49-year-old woman who has had three cranial operations in total. The 1st two were performed in the distant past and resulted in a craniectomy and cranioplasty in the left frontoparietal region for resection of a recurrent atypical meningioma followed by cranial radiation. More recently, about a month ago, the patient underwent a left pterional craniotomy by nd for clipping of a posterior communicating artery aneurysm. Recent craniotomy was performed anterior and inferior to her previous craniectomy. The patient has done well, but presents a month after that operation with a 1 inch dehiscence in the midportion of her craniotomy incision due to necrosis of the skin edges. The portion of her most recent cranioplasty plate is exposed. The patient is being admitted for flap closure of the cranial wound by Dr. Hernandez. During that procedure, I will remove the exposed portion of the cranioplasty plate. PAST MEDICAL HISTORY: Hypertension, hyperlipidemia, history of breast cancer, history of atypical meningioma, history of posterior communicating artery aneurysm, history of left thalamic stroke. MEDICATIONS: 1. Letrozole. 2. Pantoprazole. 3. Levocetirizine. 4. Pravastatin. 5. Keppra. 6. Celebrex. 7. Atenolol. 8. Lasix. 9. Lorazepam. 10. Amlodipine. ALLERGIES: NONE. SOCIAL HISTORY: The patient lives at home with her family. She does not work. She is single. She has two adult daughters. REVIEW OF SYSTEMS: Is unremarkable. PHYSICAL EXAMINATION: VITAL SIGNS: Blood pressure 117/65, heart rate 83, height 66 inches, weight 188 pounds. BMI 30.34. HEAD AND NECK: Exam is remarkable for dehiscence of the left craniotomy incision over about a 1 inch area with necrosis of the skin edges. There is no evidence of erythema or purulence. There is no CSF leakage from the incision. NECK: Supple with full range of motion. CHEST: Clear to auscultation. HEART: Regular rate and rhythm. ABDOMEN: Soft and nontender. EXTREMITIES: No clubbing, cyanosis, or edema. NEUROLOGIC: Remarkable for mild to moderate expressive aphasia. Cranial nerves are intact. Motor strength is full and symmetric in the arms and legs, except for a minimal right pronator drift. She is able to ambulate independently. IMPRESSION: Dehiscence of cranial wound. PLAN: Repair of cranial wound dehiscence by Dr. Hernandez. During that procedure, I will remove a portion of the exposed cranial plate. I have also spoken to Dr. Agosto of Infectious Disease service who will place the patient on intravenous antibiotics for a couple of weeks in order to avoid infection of her larger cranioplasty plate. The risks and benefits were explained to the patient and her family and informed consent was obtained for this plan of care. Adolfo Lr MD PP/MODL /[id number]
[2019-12-29] MEDS ORDERED: SEVOFLURANE INHAL SOLN 250 ML PEN BTL ONE (18:29)
[2019-12-29] MEDS ORDERED: LABETALOL HCL 5 MG/ML 20ML VIAL ONE (18:29)
[2019-12-29] MEDS ORDERED: ROCURONIUM BROMIDE 10 MG/ML 5ML VIAL ONE (18:29)
[2019-12-29] MEDS ORDERED: PROPOFOL IV EMULSION 10 MG/ML 20 ML VIAL ONE (18:29)
[2019-12-29] MEDS ORDERED: GLYCOPYRROLATE INJ 0.2 MG/ML VIAL ONE (18:29)
[2019-12-29] MEDS ORDERED: NEOSTIGMINE 1 MG/ML 10ML VIAL ONE (18:29)
[2019-12-29] MEDS ORDERED: ONDANSETRON HCL INJ 2MG/ML 2ML 2 MG/ML VIAL ONE (18:29)
[2019-12-29] MEDS ORDERED: DEXAMETHASONE SOD PHOS INJ 4 MG/ML VIAL ONE (18:29)
[2019-12-29] MEDS ORDERED: ACETAMINOPHEN 1000 MG/100 ML IV ONE (18:29)
[2019-12-29] MEDS ORDERED: LIDOCAINE HCL 2% LOCAL INJ 5 ML SDV VIAL INJ ONE (18:29)
[2019-12-29] MEDS ORDERED: FENTANYL CITRATE/PF 100MCG/2 ML INJ ONE (20:15)
[2019-12-29 20:16] VITALS: BP 138/67
[2019-12-29 20:32] LABS: BASOPHILS % 0.1 % (0.0-1.0); HEMATOCRIT 37.7 % (34.2-44.1); HEMOGLOBIN 12.3 g/dL (12.0-16.0); LYMPHOCYTES # (AUTO) 1.3 (1.0-3.2); LYMPHOCYTES % 12.8 % (18.0-39.1); MEAN CORPUSCULAR HEMOGLOBIN 30.9 pg (28-32); MEAN CORPUSCULAR HGB CONC 32.6 g/dL (31-35); MEAN CORPUSCULAR VOLUME 94.7 fL (81-99); MONOCYTES # (AUTO) 0.4 (0.2-0.8); MONOCYTES % 3.9 % (4.4-11.3); NEUTROPHILS # (AUTO) 8.4 (2.1-6.9); NEUTROPHILS % 82.7 % (38.7-80.0); PLATELET COUNT 277 x10e3/uL (140-360); RED BLOOD COUNT 3.98 x10e6/uL (3.6-5.1)
[2019-12-29 20:48] LABS: ANION GAP 12.1 mmol/L (8-16); BLOOD UREA NITROGEN 12 mg/dL (7-26); BUN/CREATININE RATIO 17 (6-25); CALCIUM 9.3 mg/dL (8.4-10.2); CARBON DIOXIDE 27 mmol/L (22-29); CHLORIDE 104 mmol/L (98-107); CREATININE, SERUM 0.71 mg/dL (0.57-1.11); EST GLOMERULAR FILTRATION RATE > 60 ML/MIN (60-); GLUCOSE 160 mg/dL (74-118); POTASSIUM 4.1 mmol/L (3.5-5.1); SODIUM 139 mmol/L (136-145)
[2019-12-29] MEDS ORDERED: NON-FORMULARY MEDICATION (Levocetirizine Dihydrochloride 5 MG) PO SCH (21:00)
[2019-12-29 21:45] VITALS: BP 138/67
[2019-12-29] MEDS: PRAVASTATIN 20 MG TAB PO SCH (21:45)
--- NOTE | 2019-12-29 21:45 | NUR ---
PATIENT RESTING IN BED IN STABLE CONDITION, NO SIGNS OF DISTRESS NOTED. DRESSING ON LEFT SIDE OF SCALP IS INTACT, MINIMAL DRAINAGE NOTED, AND PATIENT VOICES NO PAIN AT THIS TIME. BED IS IN LOWEST POSITION POSSIBLE, BOTH SIDE RAILS ARE UP, CALL LIGHT WITHIN EASY REACH, WILL CONTINUE TO MONITOR.
--- NOTE | 2019-12-29 21:51 | Consultation ---
DATE OF CONSULTATION: REASON FOR CONSULTATION: Concern about foreign body infection, concern about osteo. HISTORY OF PRESENT ILLNESS: This patient is a very pleasant 49-year-old female, who was admitted. She has multiple surgeries on the scalp. She has a plate on the scalp and there is dehiscence of the wound and has attempted to save the plate. She has two areas, one is large and one is small. The patient was admitted, underwent surgery for muscle flap coverage. The patient does have underlying history of seizure. There is no family for me to interview at the present time. She seems to be alert and comfortable after surgery. MEDICATIONS: She is currently on Claritin, Protonix, Keppra, Lasix, Lexapro, atenolol, Norvasc, Ambien, Zofran, and vancomycin. Her wound culture is still pending. LABORATORY DATA: Still pending. REVIEW OF SYSTEMS: Otherwise she is alert, comfortable. She was just seen postop. There is no family for me to interview. PHYSICAL EXAMINATION: GENERAL: She is currently alert, oriented, does not seem to be in acute distress. VITAL SIGNS: Stable, afebrile. HEENT: She is not icteric. She has a dressing. NECK: Supple. No JVD. No lymphadenopathy. No thyromegaly. CHEST: Clear bilateral. HEART: S1, S2. No S3, S4, or murmur. ABDOMEN: Soft. Bowel sounds present. No tenderness. EXTREMITIES: No edema. SKIN: There is no rash. IMPRESSION: This patient has dehiscence of the wound over a foreign body in the scalp. Apparently, there were two of them. I was not able to see. She just came from surgery, but discussed with Dr. Lr. Agree with vancomycin. Culture was sent. We will also discuss with Plastic Surgery. We will get CBC, chemistry panel, sedimentation rate, and C-reactive protein. We will get a PICC line. We will follow. MD TIO Schmidt/ALMA /[id number]
--- NOTE | 2019-12-29 23:15 | NUR ---
PICC NURSE HAS CAME TO SEE PATIENT.
[2019-12-30] VITALS (9 sets, daily range): BP systolic 134–167; BP diastolic 61–94
--- NOTE | 2019-12-30 00:03 | Diagnostic Imaging Report ---
Examination: Single AP view of the chest. COMPARISON: None. INDICATION: PICC placement DISCUSSION: Left upper extremity PICC has been placed, with the tip projecting over the upper superior vena cava. Lungs are well-inflated. Linear opacities in the lung bases compatible with subsegmental atelectasis. No consolidation or effusion. Cardiomediastinal contour and pulmonary vasculature are within normal limits when accounting for AP technique. No acute osseous abnormalities. IMPRESSION: Tip of left upper extremity PICC projects over the upper superior vena cava. Bibasilar atelectasis. Signed by: Dr. Loy Russell M.D. on 12/30/2019 12:01 AM
--- NOTE | 2019-12-30 00:05 | NUR ---
PICC LINE HAS BEEN STARTED IN LEFT UPPER ARM, X-RAY CONFIRMS PLACEMENT, IV ANTIBIOTIC HAS BEEN STARTED.
[2019-12-30] MEDS: VANCOMYCIN 1GM/NS 250 ML 250 ML IV SCH ×3 (00:18→23:52)
[2019-12-30] MEDS: LACTATED RINGER'S 1,000 ML IV SCH ×4 (02:07→23:53)
[2019-12-30] MEDS: ATENOLOL 50 MG TAB PO SCH (09:00)
[2019-12-30] MEDS ORDERED: PRAVASTATIN 20 MG TAB PO SCH (09:00)
[2019-12-30] MEDS: ESCITALOPRAM OXALATE 10 MG TAB PO SCH (09:00)
[2019-12-30] MEDS: NON-FORMULARY MEDICATION (Letrozole 2.5 MG) PO SCH (09:00)
[2019-12-30] MEDS: CEFEPIME 1GM/NS 0.9% 50 ML 50 ML IV SCH ×2 (09:00→17:54)
[2019-12-30] MEDS: PANTOPRAZOLE SOD 40 MG TABEC PO SCH (09:00)
[2019-12-30] MEDS: LEVETIRACETAM 500 MG TAB PO SCH ×2 (09:00→17:00)
[2019-12-30] MEDS: AMLODIPINE BESYLATE 5 MG TAB PO SCH (09:00)
[2019-12-30] MEDS: FUROSEMIDE 40 MG TAB PO SCH (09:00)
[2019-12-30] MEDS: LORATADINE 10 MG TAB PO SCH (09:00)
--- NOTE | 2019-12-30 13:39 | NUR ---
SPOKE WITH DR SAUCEDO, ORDERS NOTED TO SPEAK WITH DR ROGEL REGARDING ANTIBIOTICS, SPOKE WITH MOLLY, STATES HE WILL CALL ME BACK
[2019-12-30] MEDS ORDERED: CEFEPIME HCL 1 GM VIAL IV SCH (14:00)
--- NOTE | 2019-12-30 17:55 | NUR ---
CM REC'D ORDERS TODAY AT 14:30 FOR HOME IV ABX ORDERS VANCO X 2 WEEKS AND CEFEPIME X [address] CHOICE LETTER SIGNED BY PT FOR [facility] (IN NETWORK WITH [facility]) PH: [phone] FAX: [phone] CLINICALS FAXED; CONFIRMATION REC'D SPOKE WITH ABBY ROQUE WHO IS WORKING TO [employer] CURRENTLY WORKING ON GETTING CO-PAY'S BACK FROM INSURANCE CONFIRMED WITH [facility] THAT THEY CAN SERVICE PT IN [place] IF ARRANGEMENTS NOT FINALIZED PT WILL NEED TO STAY THRU THE WEEKEND AND DISCHARGE THURSDAY WHEN ABX ARE FINALIZED NURSE KARLA NOTIFIED AND PT UPDATED
--- NOTE | 2019-12-30 19:22 | NUR ---
WALKING ROUNDS PERFORMED, RECEIVED PT LAYING SEMI FOWLERS IN BED, AAOX3, RR EVEN AND NON-LABORED, ON ROOM AIR. NO S/SX OF DISTRESS NOTED. DRESSING TO (L) LATERAL HEAD NOTED TO BE INTACT. LEFT PT LAYING SEMI FOWLERS IN BED, BED IN LOW LOCKED POSITION, SIDE RAILS UPX2, CALL LIGHT AND PHONE WITHIN REACH.
[2019-12-30] MEDS: PRAVASTATIN 20 MG TAB PO SCH (20:38)
[2019-12-30] MEDS: OXYCODONE/ACETAMINOPHEN 5-325 1 EACH TABLET PO PRN (20:38)
[2019-12-30] MEDS: CARISOPRODOL 350 MG TAB PO PRN (20:38)
[2019-12-31] VITALS (8 sets, daily range): BP systolic 134–161; BP diastolic 70–88
[2019-12-31] MEDS: CEFEPIME 1GM/NS 0.9% 50 ML 50 ML IV SCH ×3 (02:02→17:00)
[2019-12-31] MEDS: LORATADINE 10 MG TAB PO SCH (09:00)
[2019-12-31] MEDS: NON-FORMULARY MEDICATION (Letrozole 2.5 MG) PO SCH (09:00)
[2019-12-31] MEDS: PANTOPRAZOLE SOD 40 MG TABEC PO SCH (10:00)
[2019-12-31] MEDS: LEVETIRACETAM 500 MG TAB PO SCH ×2 (10:00→17:00)
[2019-12-31] MEDS: FUROSEMIDE 40 MG TAB PO SCH (10:00)
[2019-12-31] MEDS: ESCITALOPRAM OXALATE 10 MG TAB PO SCH (10:00)
[2019-12-31] MEDS: ATENOLOL 50 MG TAB PO SCH (10:00)
[2019-12-31] MEDS: AMLODIPINE BESYLATE 5 MG TAB PO SCH (10:00)
[2019-12-31] MEDS: LACTATED RINGER'S 1,000 ML IV SCH ×2 (11:15→19:35)
[2019-12-31] MEDS: CARISOPRODOL 350 MG TAB PO PRN (11:45)
[2019-12-31] MEDS: OXYCODONE/ACETAMINOPHEN 5-325 1 EACH TABLET PO PRN (11:45)
[2019-12-31] MEDS ORDERED: VANCOMYCIN HCL 1.25 GM in SODIUM CHLORIDE 0.9% 250ML 300 ML IV SCH (12:00)
[2019-12-31] MEDS: VANCOMYCIN HCL 1.25 GM in SODIUM CHLORIDE 0.9% 250ML 250 ML IV SCH (12:30)
--- NOTE | 2019-12-31 17:49 | NUR ---
SPOKE WITH MD SAUCEDO, ORDERS NOTED TO CHANGE ATTENDING TO MEDICAL, SPOKE WITH MD ARRINGTON, MADE AWARE OF NEW PT, VERBALIZES UNDERSTANDING
--- NOTE | 2019-12-31 19:34 | NUR ---
Received patient in bed with eyes closes. resp even and unlabored. LR infusing @30ml/hr to Lt Picc. No c/o pain or discomfort at this time. Call light in reach. Bed in low position.
[2019-12-31] MEDS: PRAVASTATIN 20 MG TAB PO SCH (21:28)
[2020-01-01] VITALS (8 sets, daily range): BP systolic 111–150; BP diastolic 74–115
[2020-01-01] MEDS: CEFEPIME 1GM/NS 0.9% 50 ML 50 ML IV SCH ×3 (00:32→17:00)
[2020-01-01] MEDS: LACTATED RINGER'S 1,000 ML IV SCH ×3 (04:03→21:18)
--- NOTE | 2020-01-01 05:42 | NUR ---
Medical Consultation Requesting Physician: Reason for consult; med mgmt cc: cranial wound dehiscence HPI: 49yoF, PCP , who has had 3 cranial surgeries related to initial atypical meningioma, with utilization of radiation treatment, nod here for mgmt of cranial wound dehiscence. IV antibiotics have been initiated prophylactically. PMH: atypical meningioma s/p resection and ratiation, HTN, HLD, breast cancer, Aneurysm of QC MANAGER, left thalamic stroke PSx: craniotomy x3 Allergies; see emr FH'SH; single; 1/4ppd cigs Meds; see MAR ROS: no f/c/sN/V/D/cp/sob/skin rash/vision changes/leg pain/back pain/ v/s; revd PE tired appearing anicteric; left scalp with dressing [id number] mod bs soft nt nd no e/t skin dry flat affect alert and appropriate; labs/meds revd A/P: 49yoF Cranial wound dehiscence- s/p surgical mgmt MRSA infected scalp wound- iv vancomycin Hx atypical meningioma Hyperglycemia- check hab1c/lipids Overweight- screen for DM BMI 28.7- as above HTN- home med HLD- home med Hx breast cancer Hx Aneurysm of QC MANAGER Hx thalamic stroke Prop: scd Dispo: Abiodun Goyal MD,PhD.
[2020-01-01 06:56] LABS: BASOPHILS % 0.4 % (0.0-1.0); EOSINOPHILS # (AUTO) 0.5 (0.0-0.4); EOSINOPHILS % 5.6 % (0.0-6.0); HEMATOCRIT 36.1 % (34.2-44.1); LYMPHOCYTES # (AUTO) 2.4 (1.0-3.2); LYMPHOCYTES % 29.8 % (18.0-39.1); MEAN CORPUSCULAR HGB CONC 33.2 g/dL (31-35); MEAN CORPUSCULAR VOLUME 93.3 fL (81-99); MONOCYTES # (AUTO) 0.7 (0.2-0.8); MONOCYTES % 8.2 % (4.4-11.3); NEUTROPHILS # (AUTO) 4.6 (2.1-6.9); NEUTROPHILS % 55.8 % (38.7-80.0); PLATELET COUNT 251 x10e3/uL (140-360); RED BLOOD COUNT 3.87 x10e6/uL (3.6-5.1)
[2020-01-01 07:13] LABS: ANION GAP 12.6 mmol/L (8-16); BLOOD UREA NITROGEN 10 mg/dL (7-26); BUN/CREATININE RATIO 14 (6-25); CALCIUM 9.8 mg/dL (8.4-10.2); CARBON DIOXIDE 28 mmol/L (22-29); CHLORIDE 103 mmol/L (98-107); CHOL/HDL RATIO 3.7 (3.0-3.6); CHOLESTEROL 183 MD/DL (0-199); EST GLOMERULAR FILTRATION RATE > 60 ML/MIN (60-); GLUCOSE 96 mg/dL (74-118); HDL CHOLESTEROL 49 MG/DL (40-60); LDL CHOLESTEROL 113 MG/DL (60-130); POTASSIUM 3.6 mmol/L (3.5-5.1); SODIUM 140 mmol/L (136-145); TRIGLYCERIDES 104 MG/DL (0-149)
[2020-01-01] MEDS: NON-FORMULARY MEDICATION (Letrozole 2.5 MG) PO SCH (09:00)
[2020-01-01] MEDS: LORATADINE 10 MG TAB PO SCH (09:00)
[2020-01-01] MEDS: ESCITALOPRAM OXALATE 10 MG TAB PO SCH (10:00)
[2020-01-01] MEDS: ATENOLOL 50 MG TAB PO SCH (10:00)
[2020-01-01] MEDS: AMLODIPINE BESYLATE 5 MG TAB PO SCH (10:00)
[2020-01-01] MEDS: FUROSEMIDE 40 MG TAB PO SCH (10:00)
[2020-01-01] MEDS: PANTOPRAZOLE SOD 40 MG TABEC PO SCH (10:00)
[2020-01-01] MEDS: LEVETIRACETAM 500 MG TAB PO SCH ×2 (10:00→17:00)
[2020-01-01] MEDS: VANCOMYCIN HCL 1.25 GM in SODIUM CHLORIDE 0.9% 250ML 250 ML IV SCH ×3 (13:00)
--- NOTE | 2020-01-01 19:25 | NUR ---
walking rounds complete, report handed to oncoming nurse.
[2020-01-01] MEDS: PRAVASTATIN 20 MG TAB PO SCH (21:18)
[2020-01-02] VITALS: BP 100/76
[2020-01-02] MEDS: VANCOMYCIN HCL 1.25 GM in SODIUM CHLORIDE 0.9% 250ML 250 ML IV SCH ×2 (00:10→12:00)
[2020-01-02] MEDS: CEFEPIME 1GM/NS 0.9% 50 ML 50 ML IV SCH (02:00)
[2020-01-02 04:00] VITALS: BP 107/77
[2020-01-02] MEDS: LACTATED RINGER'S 1,000 ML IV SCH ×2 (04:50→13:15)
--- NOTE | 2020-01-02 07:00 | NUR ---
RCD PT AT BED PT IS ALERT AND ORIENTED PT RESTING ON BED NO SIGNS OF ANY DISTRESS NOTED IV PATENT IV PATENT BY SALINE FLUSH BED LOW AND LOCKED CALL LIGHT IN REACH
[2020-01-02 07:59] VITALS: BP 121/95
[2020-01-02 08:35] VITALS: BP 121/95
[2020-01-02] MEDS: LEVETIRACETAM 500 MG TAB PO SCH ×2 (09:00→16:31)
[2020-01-02] MEDS: LORATADINE 10 MG TAB PO SCH (09:00)
[2020-01-02] MEDS: AMLODIPINE BESYLATE 5 MG TAB PO SCH (09:00)
[2020-01-02] MEDS: ESCITALOPRAM OXALATE 10 MG TAB PO SCH (09:00)
[2020-01-02] MEDS: ATENOLOL 50 MG TAB PO SCH (09:00)
[2020-01-02] MEDS: FUROSEMIDE 40 MG TAB PO SCH (09:00)
[2020-01-02] MEDS: PANTOPRAZOLE SOD 40 MG TABEC PO SCH (09:00)
[2020-01-02] MEDS: NON-FORMULARY MEDICATION (Letrozole 2.5 MG) PO SCH (09:00)
--- NOTE | 2020-01-02 11:00 | NUR ---
PAGED AND NOTIFIED THE [facility] TROUGH 14.[address] ROGEL ,GOT THE ORDER TO CONTINUE THE SAME AND ALSO HE OK TO DISCHARGE THE PATIENT
--- NOTE | 2020-01-02 11:28 | NUR ---
Cathy with [facility] ([phone]) is here to provide teaching to pt at bedside. Wants clarification on Vancomycin dose due to trough of 14.4. CM spoke with Dr. Agosto. States to keep dose at 1.25gm IV q12h. Cathy updated. New order placed in system.
[2020-01-02 12:00] VITALS: BP 118/95
--- NOTE | 2020-01-02 12:14 | NUR ---
ORDERS TO EXTEND IV VANCO 1.25GM IV Q 12 HRS TO 6 WEEKS; DC CEFEPIME; CBC,BMP AND VANCO TOUGHT Q THURSDAY AND ERVIN DR ROGEL WITH RESULTS FAXED TO [facility] WITH [facility] AT [phone]; ALONG WITH VANCO TROUGH OF 14.[address] ROGEL AWARE AND WANTS TO CONTINUE AT SAME DOSE; CONFIRMATION REC'D
--- NOTE | 2020-01-02 12:20 | NUR ---
PAGED DR ARRINGTON TO GET THE DISCHARGE ORDER AND LEFT THE MESSAGE
--- NOTE | 2020-01-02 12:55 | NUR ---
GOT THE DISCHARGE ORDER FROM DR ARRINGTON
--- NOTE | 2020-01-02 13:18 | NUR ---
Spoke with Cathy with [facility]. States she just spoke with her office. Everything is good to go on their end. Informed her that pt will discharge today. [facility] will deliver medications tonight. [facility]'s nurse will provide nursing care. NANY Cronin was updated. Pt was changed to inpatient this morning, per Dr. Goyal' order. IMM letter delivered and explained to pt. She verbalized understanding. Signed copy placed in chart. Copy to pt.
--- NOTE | 2020-01-02 13:54 | Progress Note ---
DATE: SUBJECTIVE: Ms. Bowie is doing better. She is up in the room walking. No new complaints. REVIEW OF SYSTEMS: HEENT: Negative. PULMONARY: Negative. CARDIAC: Negative. PHYSICAL EXAMINATION: GENERAL: She is currently alert, oriented, does not seem to be in acute distress. VITAL SIGNS: Stable, afebrile. HEENT: Normocephalic, not icteric. NECK: Supple. CHEST: Clear bilateral. HEART: S1, S2. No S3, S4, or murmur. ABDOMEN: Soft. Bowel sounds present. No tenderness. EXTREMITIES: No edema. MEDICATION LIST: Reviewed. LABORATORY DATA: Reviewed. The wound looked really good. Her culture is growing Staphylococcus aureus. IMPRESSION: Status post repair of cranial wound dehiscence, concerned about the leg infection, concerned about present that she does have exposed cranial plate. RECOMMENDATION: Eight weeks of IV antibiotic. Weekly CBC, weekly Chem panel, then recommend to lifelong suppression. She is growing Staphylococcus aureus. Sensitivity is still pending. The patient wants to move to different state, encouraged strongly to get Infectious Disease to follow up with them over there, also available to follow up with me here if she is back in [place]. MD TIO Schmidt/ALMA /[id number]
--- NOTE | 2020-01-02 16:46 | NUR ---
PATIENT WENT HOME IN SAFE CONDITION WITH HER DAUGHTER
[2020-01-02] MEDS ORDERED: PRAVASTATIN 20 MG TAB PO SCH (21:00)
== END 2020-01-02 16:46 | disposition home or self-care (01) | DRG 904 ==
LOC: OR 05:33 → PACU V 09:18 → MED/SURG 13:25 → MED/SURG2 01-01 13:29 → OBSVTOIN 01-02 10:24
PROVIDERS: ADMIT Internal Medicine; ATTEND Internal Medicine
PROC: 02HV33Z Insertion of Infusion Device into Superior Vena Cava, Percutaneous Approach (ICD-10-PCS; 2019-12-29)
PROC: 0NP004Z Removal of Internal Fixation Device from Skull, Open Approach (ICD-10-PCS; principal; 2019-12-29 07:30)
PROC: 0JX00ZC Transfer Scalp Subcutaneous Tissue and Fascia with Skin, Subcutaneous Tissue and Fascia, Open Approach (ICD-10-PCS; 2019-12-29 07:30)
DX: T81.32XA Disruption of internal operation (surgical) wound, not elsewhere classified, initial encounter (principal); T81.43XA Infection following a procedure, organ and space surgical site, initial encounter; I10 Essential (primary) hypertension; E78.5 Hyperlipidemia, unspecified; Z85.3 Personal history of malignant neoplasm of breast; Z86.79 Personal history of other diseases of the circulatory system; Z86.73 Personal history of transient ischemic attack (TIA), and cerebral infarction without residual deficits; E66.3 Overweight; Z68.28 Body mass index [BMI] 28.0-28.9, adult; B95.62 Methicillin resistant Staphylococcus aureus infection as the cause of diseases classified elsewhere; R73.9 Hyperglycemia, unspecified
CPT/HCPCS: 36415; 36569; 80048; 80061; 80202; 83036; 85025; 87071; 87075; 87186; 87205; 93005; G0378; J0690; J0692; J1100; J2001; J2405; J2710; J3010; J3370; J7050; J7121

== ENCOUNTER 2020-02-02 06:08 | Observation (INO) | payer MEDICARE ==
[2020-01-31 13:01] LABS: BASOPHILS % 0.4 % (0.0-1.0); EOSINOPHILS # (AUTO) 0.4 (0.0-0.4); EOSINOPHILS % 5.1 % (0.0-6.0); HEMATOCRIT 38.7 % (34.2-44.1); HEMOGLOBIN 12.4 g/dL (12.0-16.0); LYMPHOCYTES # (AUTO) 2.1 (1.0-3.2); LYMPHOCYTES % 27.7 % (18.0-39.1); MEAN CORPUSCULAR HEMOGLOBIN 29.9 pg (28-32); MEAN CORPUSCULAR VOLUME 93.3 fL (81-99); MONOCYTES # (AUTO) 0.7 (0.2-0.8); MONOCYTES % 9.7 % (4.4-11.3); NEUTROPHILS # (AUTO) 4.2 (2.1-6.9); NEUTROPHILS % 56.6 % (38.7-80.0); PLATELET COUNT 355 x10e3/uL (140-360); RED BLOOD COUNT 4.15 x10e6/uL (3.6-5.1); RED CELL DISTRIBUTION WIDTH 14.4 % (11.7-14.4)
[~2020-02-02] VITALS: Ht 170.2 cm; Wt 83.0 kg
[2020-02-02] MEDS ORDERED: CEFAZOLIN SOD 1 GM/NS 50ML 50 ML IV ONE (06:51)
[2020-02-02 07:53] LABS: ANION GAP 14.8 mmol/L (8-16); BLOOD UREA NITROGEN 7 mg/dL (7-26); BUN/CREATININE RATIO 9 (6-25); CALCIUM 10.2 mg/dL (8.4-10.2); CARBON DIOXIDE 28 mmol/L (22-29); CHLORIDE 105 mmol/L (98-107); CREATININE, SERUM 0.75 mg/dL (0.57-1.11); EST GLOMERULAR FILTRATION RATE > 60 ML/MIN (60-); GLUCOSE 113 mg/dL (74-118); POTASSIUM 3.8 mmol/L (3.5-5.1); SODIUM 144 mmol/L (136-145)
[2020-02-02] MEDS ORDERED: MUPIROCIN 2% OINT 22 GM TUBE ONE (09:06)
[2020-02-02] MEDS ORDERED: LIDOCAINE 1% W/EPINEPHRINE 20 ML VIAL ONE (09:06)
[2020-02-02] MEDS ORDERED: BACITRACIN 50,000 UNIT VIAL ONE (09:55)
[2020-02-02] MEDS ORDERED: TRAMADOL HCL 50 MG TAB PO PRN (11:45)
--- NOTE | 2020-02-02 12:07 | Operative Report ---
DATE OF PROCEDURE: 02/02/2020 SURGEON: Adolfo Lr MD PREOPERATIVE DIAGNOSIS: Necrotic scalp flaps with underlying cranioplasty, titanium plate. POSTOPERATIVE DIAGNOSIS: Necrotic scalp flaps with underlying cranioplasty, titanium plate. PROCEDURE: Removal of left frontotemporal cranioplasty, titanium plate. I was called by Dr. Hernandez to assist in the middle of this procedure. HISTORY OF PRESENT ILLNESS: The patient is a 50-year-old woman who has previously undergone two previous craniotomies in the distant past for an atypical meningioma in the left frontoparietal region and subsequent scalp radiation. Several months ago, she underwent a left frontotemporal craniotomy anterior and inferior to the region of her previous cranioplasty for clipping of an aneurysm by me. She has done well from a neurosurgical standpoint. However, she developed necrosis of her craniotomy flap couple of months ago and underwent repair of the necrotic region and mobilization of the scalp flap by Dr. Hernandez about a month ago. Initially, she did well and has been maintained on intravenous antibiotics. However, she presents with recurrent necrosis of the scalp flap. Dr. Hernandez took her to surgery this morning for removal and repair of the necrotic scalp flap. During the procedure, he found a large portion of the more recent cranioplasty titanium plate was exposed and with interfere with successful healing of the scalp flap. He asked me to come in to remove the remaining cranioplasty titanium plate in the left frontotemporal region. After I scrubbed in, the exposed portion of the scalp and underlying soft tissues were covered with Betadine solution. The left frontotemporal scalp flap was mobilized anteriorly and dissected from the underlying titanium plate in the frontotemporal region with a curette. The titanium plate was then very carefully elevated away from the underlying duraplasty. The central tenting sutures were cut and the titanium cranioplasty plate in the left frontotemporal region was then completely removed. Of note, the old frontoparietal titanium cranioplasty remains in place and only is partially exposed along its anterior inferior corner. The wound was then copiously irrigated with bacitracin solution. At this point, Dr. Hernandez felt that enough of the underlying hardware had been removed so that a successful flap closure would be possible. I scrubbed out. Adolfo Lr MD PP/ALMA /[id number]
[2020-02-02] MEDS ORDERED: LORAZEPAM INJ 2 MG/ML VIAL IV PRN (13:00)
--- NOTE | 2020-02-02 14:17 | Operative Report ---
DATE OF PROCEDURE: 02/02/2020 SURGEON: Alvaro Hernandez MD PREOPERATIVE DIAGNOSIS: Dehiscence of flap closure of scalp. POSTOPERATIVE DIAGNOSIS: Dehiscence of flap closure of scalp, infected hardware, previous craniotomy. PROCEDURES: 1. Removal of infected hardware by neurosurgical team. 2. Debridement of soft tissues. 3. Placement of allograft. ANESTHESIA: General. HISTORY: The patient is a 50-year-old female, who underwent a flap closure and removal of infected hardware on December 29 of this year. Her pertinent history includes three craniotomies and postop radiation. After the third craniotomy recently, the wound was noted to become infected hardware and dura were exposed. The Neurosurgical team and the Plastic Surgical team went to the OR at the end of December to remove infected hardware and then a flap closure was performed. Postoperatively, the distal extent of the flap has necrosed. There is purulent exudate and once again, there is exposed hardware and dural graft. The risks, benefits, and alternative of treatment were discussed with the patient and the family, and they are prepared to undergo the procedure as outlined. PROCEDURE IN DETAIL: The patient was marked preoperatively in the holding area. She was brought to the operating theater and after the induction of adequate general anesthesia, she was prepped and draped in a supine position and a time-out was performed. The procedure was begun by incising along the demarcated line between the viable and nonviable tissue. The devitalized tissue was then sharply removed. There was some purulent exudate in the wound and this was cultured both aerobically and anaerobically. At this point, the neurosurgical team came in and removed the remaining hardware that seem to be in any infected plane. At this point, copious antibiotic irrigation ensued. The actual wound defect was 5 cm x 2 cm. However, the exposed dura was approximately 1 cm x 2 cm. The scalp was previously radiated. No further advancement flap could be utilized and for this reason, allograft in the form of Integra bilayer membrane was then applied to the defect. It was secured in place using surgical clips. At this point, circumferentially placed 4-0 silk sutures were used and then Xeroform was placed over the Integra and then moistened cotton balls were used as a bolster-type dressing. The Xeroform and sutures were then tied over the cotton balls and then a sterile bandage was applied. The estimated blood loss of procedure was approximately 20 to 25 mL. The patient tolerated the procedure well and was then brought to recovery room in satisfactory condition and then she is being admitted for 23-hour observation. MD HEATHER Ortiz/ALMA /[id number]
--- NOTE | 2020-02-02 15:11 | NUR ---
Recvd patient from PACU. Alert with no distress, surgical site on scalp dressing intact, no bleeding or drainage noted, denies any pain, no distress noted. call light in reach, bed alarm ON, Keep monitoring
[2020-02-02 16:00] VITALS: BP 94/67
[2020-02-02] MEDS: LEVETIRACETAM 500 MG TAB PO SCH (17:50)
[2020-02-02 18:03] VITALS: BP 106/71
[2020-02-02] MEDS ORDERED: SEVOFLURANE INHAL SOLN 250 ML PEN BTL ONE (19:39)
[2020-02-02] MEDS ORDERED: LIDOCAINE HCL 2% LOCAL INJ 5 ML SDV VIAL INJ ONE (19:39)
[2020-02-02] MEDS ORDERED: DEXAMETHASONE SOD PHOS INJ 4 MG/ML VIAL ONE (19:39)
[2020-02-02] MEDS ORDERED: FENTANYL CITRATE/PF 100MCG/2 ML INJ ONE (19:39)
[2020-02-02] MEDS ORDERED: ONDANSETRON HCL INJ 2MG/ML 2ML 2 MG/ML VIAL ONE (19:39)
[2020-02-02] MEDS ORDERED: PROPOFOL IV EMULSION 10 MG/ML 20 ML VIAL ONE (19:39)
[2020-02-02] MEDS ORDERED: NON-FORMULARY MEDICATION (Levocetirizine Dihydrochloride 5 MG) PO SCH (21:00)
[2020-02-02] MEDS ORDERED: LORATADINE 10 MG TAB PO SCH (21:00)
[2020-02-02 21:01] VITALS: BP 120/80
[2020-02-02 21:58] VITALS: BP 120/80
[2020-02-03 01:06] VITALS: BP 115/77
[2020-02-03 05:37] VITALS: BP 131/83
[2020-02-03] MEDS ORDERED: PANTOPRAZOLE SOD 40 MG TABEC PO SCH (07:30)
[2020-02-03 08:00] VITALS: BP 114/65
[2020-02-03 08:45] VITALS: BP 114/65
[2020-02-03] MEDS ORDERED: ASPIRIN 325 MG TAB PO SCH (09:00)
[2020-02-03] MEDS ORDERED: ESCITALOPRAM OXALATE 10 MG TAB PO SCH (09:00)
[2020-02-03] MEDS ORDERED: PRAVASTATIN 20 MG TAB PO SCH (09:00)
[2020-02-03] MEDS ORDERED: AMLODIPINE BESYLATE 5 MG TAB PO SCH (09:00)
[2020-02-03] MEDS ORDERED: CLOPIDOGREL BISULFATE 75 MG TAB PO SCH (09:00)
[2020-02-03] MEDS ORDERED: LETROZOLE 2.5 MG PO SCH (09:00)
[2020-02-03] MEDS ORDERED: ATENOLOL 50 MG TAB PO SCH (09:00)
[2020-02-03] MEDS ORDERED: CELECOXIB 200 MG CAP PO SCH (09:00)
[2020-02-03] MEDS ORDERED: FUROSEMIDE 40 MG TAB PO SCH (09:00)
[2020-02-03] MEDS ORDERED: NON-FORMULARY MEDICATION (Celecoxib (Celebrex) 200 MG) PO SCH (09:00)
[2020-02-03] MEDS: LEVETIRACETAM 500 MG TAB PO SCH ×2 (09:25→16:08)
--- NOTE | 2020-02-03 09:30 | NUR ---
Per "Reinforce dressing so it does not fall". Dressing reinforced as ordered. Dressing clean, dry, and intact.
[2020-02-03 12:00] VITALS: BP 126/62
[2020-02-03] MEDS ORDERED: VANCOMYCIN 1GM/NS 250 ML 250 ML IV SCH ×2 (12:30→14:00)
[2020-02-03] MEDS ORDERED: SODIUM CHLORIDE 0.9% 250ML 250 ML ONE (12:55)
[2020-02-03 15:51] VITALS: BP 119/61
--- NOTE | 2020-02-03 18:24 | NUR ---
Patient taken via wheelchair to personal car. Daughter awaiting for patient. AAOX3 to time, person, place. Respirations even and unlabored. Dressing to head clean, dry, and intact. Left upper arm PICC line dressing clean, dry, and intact. Discharge instructions and all personal instructions taken with patient. No rx available at this time.
--- NOTE | 2020-02-03 19:58 | Consultation ---
DATE OF CONSULTATION: HISTORY OF PRESENT ILLNESS: This patient is a very pleasant, but well known to me. She is a 50-year-old, who has history of cranioplasty with titanium plate, which was infected. She had MRSA. She has been on IV vancomycin. The patient was admitted. She had necrotic scalp flap with underlying cranioplasty with titanium plate. The patient was admitted on February 01, underwent removal of infected hardware by Dr. Lr, debridement of the soft tissue, placement of allograft, I was asked to see the patient, is in mid of treating her with IV vancomycin, in outpatient. She is currently alert and oriented with no other complaints. The patient was seen post surgery. She is doing great. As mentioned above, the plan for her to go back home. I was asked to see her. The patient, who has history of several at least three before this time cranial operations. The patient has history of hypertension, hyperlipidemia, breast cancer, atypical meningioma, posterior communicating artery aneurysm, and left thalamic stroke. MEDICATIONS: She is on: 1. Pravastatin. 2. Keppra. 3. Celebrex. 4. Atenolol. 5. Lasix. ALLERGIES: NKA. SOCIAL HISTORY: There is no smoking, drug abuse, or alcohol abuse. REVIEW OF SYSTEMS: At the present time: HEENT: Negative. PULMONARY: Negative. CARDIAC: Negative. PHYSICAL EXAMINATION: GENERAL: She is currently alert and oriented. HEENT: Not icteric. NECK: Supple. CHEST: Clear. ABDOMEN: Soft. IMPRESSION: Status post cranial surgery. Continue vancomycin. She received a dose yesterday. We will give her g now on discharge to continue vancomycin as outpatient as ordered. Other medical problems stable. Discussed with the patient. Discussed with the medical team. Discussed about discharge planning. MD TIO Schmidt/ALMA /[id number]
== END 2020-02-03 17:56 | disposition home or self-care (01) ==
LOC: OR 06:08 → PACU V 11:31 → MED/SURG2 15:20
PROVIDERS: ADMIT Plastic Surgery; ATTEND Plastic Surgery
DX: T84.69XA Infection and inflammatory reaction due to internal fixation device of other site, initial encounter (principal); T81.31XA Disruption of external operation (surgical) wound, not elsewhere classified, initial encounter; I10 Essential (primary) hypertension; E78.5 Hyperlipidemia, unspecified; Z85.3 Personal history of malignant neoplasm of breast; Z86.73 Personal history of transient ischemic attack (TIA), and cerebral infarction without residual deficits; F17.210 Nicotine dependence, cigarettes, uncomplicated
CPT/HCPCS: 15275; 36415 ×2; 62142; 80048; 85025; 87071; 87205; G0378 ×2; J0690; J1100; J2001; J2405; J2704; J3010; J3370; J7050; Q4104; S0164

== ENCOUNTER 2020-02-14 06:35 | Observation (INO) | payer MEDICARE ==
[~2020-02-14] VITALS: Ht 170.2 cm; Wt 90.3 kg
[2020-02-14] MEDS ORDERED: CEFAZOLIN SOD 1 GM/NS 50ML 50 ML IV ONE (06:42)
[2020-02-14] MEDS ORDERED: BUPIVACAINE HCL 0.5% INJ 30 ML VIAL INJ ONE (07:07)
[2020-02-14] MEDS ORDERED: MINERAL OIL STERILE 10ML VIAL ONE (07:07)
[2020-02-14] MEDS ORDERED: MUPIROCIN 2% OINT 22 GM TUBE ONE (07:07)
[2020-02-14] MEDS ORDERED: LIDOCAINE 1% W/EPINEPHRINE 20 ML VIAL ONE (07:59)
[2020-02-14] MEDS ORDERED: HYDROMORPHONE 1MG/1ML INJ IV PRN (11:45)
[2020-02-14] MEDS ORDERED: SODIUM CHLORIDE FLUSH 10 ML SYR INJ PRN (11:45)
[2020-02-14 11:50] VITALS: BP 119/79
[2020-02-14 11:56] VITALS: BP 119/79
--- NOTE | 2020-02-14 12:50 | Operative Report ---
DATE OF PROCEDURE: 02/14/2020 SURGEON: Alvaro Hernandez MD PREOPERATIVE DIAGNOSIS: Open wound, scalp 30 cm2, infected hardware. POSTOPERATIVE DIAGNOSIS: Open wound, scalp 30 cm2, infected hardware. PROCEDURE: 1. Excisional debridement of scalp 30 cm2. 2. Temporo-occipital flap closure of scalp wound, 90 cm2 and split-thickness skin grafting of the donor site scalp 60 cm2. ANESTHESIA: General. HISTORY: The patient is a 50-year-old female who has had numerous craniotomies and postop radiation. Her most recent craniotomy resulted in breakdown of the wound with exposed and infected hardware. A flap was attempted. This did not survive. The hardware remained infected. She had to have the remaining hardware infected and a temporary allograft was placed until the infection was found to be cleared up. At this point, the patient now presents for definitive closure of scalp defect with exposed dura. Risks, benefits, and alternatives were discussed with the patient and the family and they are prepared to undergo the procedure as outlined. PROCEDURE IN DETAIL: The patient was marked preoperatively in the holding area. She was brought to the operating theater and after the induction of adequate general anesthesia, she was prepped and draped in a supine position and a time-out was performed. The procedure was begun by removing the silicone bilaminate membrane of the previously placed allograft. The surgical clips were removed and then the membrane was removed. There is devitalized scalp soft tissue all the way down through the galea to the plate. All of the soft tissues were then excisionally debrided with a scalpel until good bleeding, healthy tissue was obtained. The defect measures 30 cm2. At this point, a template of the defect was made and transferred to the temporo-occipital area where a temporo-occipital flap was designed beginning from just anterior to the left ear and extending onto the occiput of the head. The flap was imaged, so that the pedicle was minimum of 4 cm wide and the flap is 15 cm long. The proposed incision was then infiltrated with 1% Xylocaine with epinephrine. The incision was made through the scalp and subcutaneous tissues. Bleeding was controlled using electrocautery. The flap was elevated in the subgaleal plane from [id number], taking care to coapt all bleeding vessels and minimize bleeding. Once the flap was completely elevated, it was then transposed into the defect and it was then inset with 4-0 nylon sutures in an interrupted horizontal mattress fashion. At this point, the donor site is made hemostatic using the electrocautery. The defect measures approximately 60 cm2. The left anterior thigh was prepped and draped in the initial portion of the procedure. Using a dermatome, a split-thickness skin graft has been harvested from the left anterior lateral thigh of approximately 12 to 13 thousand, 7-inch thickness. The graft was then meshed in a 1-1/2 to 1 fashion. It was placed on the scalp wound from the donor site and secured using surgical clips. At this point, Bactroban ointment is applied to the graft. The Xeroform gauze and then moistened cotton balls were placed and 4-0 silk sutures were used in a bolster-type fashion to affix the graft to its bed to improve take. The remaining suture lines were dressed with Xeroform gauze and Bactroban ointment. A sterile bulking conforming bandage was applied to the left side of the scalp and held in place with a loosely wrapped Rajat wrap. The left anterior thigh skin graft donor site was dressed with Xeroform gauze, and Bactroban ointment and a sterile bulking conforming bandage was applied. At the completion of the procedure, the patient was returned to recovery room. She was kept for 23-hour observation. The estimated blood loss for the procedure was 125 mL. MD HEATHER Ortiz/ALMA /[id number]
--- NOTE | 2020-02-14 12:59 | NUR ---
Patient continues to be lethargic from surgery but wakes easily to name and is oriented x3, she has no complaints other than she is sleepy. Dressings to continue to have a little bloody drainage but is not saturated. Same amount as when received from PACU. Bed alarm on, call light is in reach, will continue to monitor.
[2020-02-14] MEDS ORDERED: SUCCINYLCHOLINE CHLORIDE 20 MG/ML 10ML VIAL ONE (14:24)
[2020-02-14] MEDS ORDERED: NEOSTIGMINE 1 MG/ML 10ML VIAL ONE (14:24)
[2020-02-14] MEDS ORDERED: PROPOFOL IV EMULSION 10 MG/ML 20 ML VIAL ONE (14:24)
[2020-02-14] MEDS ORDERED: EPHEDRINE SULFATE INJ 50 MG/ML VIAL ONE (14:24)
[2020-02-14] MEDS ORDERED: LIDOCAINE HCL 2% LOCAL INJ 5 ML SDV VIAL INJ ONE (14:24)
[2020-02-14] MEDS ORDERED: ONDANSETRON HCL INJ 2MG/ML 2ML 2 MG/ML VIAL ONE (14:24)
[2020-02-14] MEDS ORDERED: SEVOFLURANE INHAL SOLN 250 ML PEN BTL ONE (14:24)
[2020-02-14] MEDS ORDERED: ACETAMINOPHEN 1000 MG/100 ML IV ONE (14:24)
[2020-02-14] MEDS ORDERED: ROCURONIUM BROMIDE 10 MG/ML 5ML VIAL IV ONE (14:24)
[2020-02-14] MEDS ORDERED: DEXAMETHASONE SOD PHOS INJ 4 MG/ML VIAL ONE (14:24)
[2020-02-14] MEDS ORDERED: GLYCOPYRROLATE INJ 0.2 MG/ML VIAL ONE (14:24)
--- NOTE | 2020-02-14 14:50 | NUR ---
Dressing to left thigh is seeping through with red blood. Dressing was reinforced and Dr. Hernandez notified. He said unless site is bleeding profusely, it is normal for it to bleed a little and dressing need to be reinforced. Will continue to monitor site but no further orders at this time.
[2020-02-14] MEDS ORDERED: LORAZEPAM INJ 2 MG/ML VIAL IV PRN (15:15)
[2020-02-14 15:42] VITALS: BP 112/69
[2020-02-14] MEDS: ACETAMINOPHEN/CODEINE 300MG - 30MG TAB PO PRN (17:20)
[2020-02-14] MEDS: LEVETIRACETAM 500 MG TAB PO SCH (17:20)
[2020-02-14] MEDS: VANCOMYCIN 1GM/NS 250 ML 250 ML IV SCH (18:03)
--- NOTE | 2020-02-14 18:51 | Progress Note ---
DATE: SUBJECTIVE: This patient is receiving antibiotics. This patient who is well known to me from before. She is very pleasant 50-year-old female, who has multiple craniotomy postop radiation. She had recently craniotomy resulted in breakdown of the wound with exposed hardware. The patient had a flapped attempt by Plastic as well as Neurosurgery, but did not do well. The hardware remained infected. She had to have remaining hardware infected and tubular graft placed until the infection was found and cleared up. The patient comes in for definitive closure of the scalp, defect with exposed dura. The patient has been admitted, underwent surgery. She is currently lying in bed comfortably postop. The patient has been on antibiotics since December 29, 2019. The patient who has history of cranioplasty, titanium plate placement, MRSA infection, on vancomycin, multiple surgery try to save the hardware. She has a large deficit in her cranium. The patient is currently lying in bed comfortably. She has had multiple cranial surgeries. She had resection of recurrent atypical meningioma followed by cranial radiation several years ago. She had 3 surgeries, underwent the left pterional craniotomy back in December 2019 and the patient had dehiscence of the wound after that and she has multiple surgeries trying to save and to clear this infection. The patient does have history of hypertension, hyperlipidemia, breast cancer, atypical meningioma, posterior communicating artery aneurysm, left thalamic stroke. ALLERGIES: NKA. SOCIAL HISTORY: There is no smoking, drug abuse, or alcohol abuse. FAMILY HISTORY: Hypertension. MEDICATIONS: The patient who is on: 1. Pravastatin. 2. Keppra. 3. Celebrex. 4. Atenolol. 5. Lasix. 6. IV vancomycin. LABORATORY DATA: Reviewed. White count is 7.46. Sodium of 144. She is currently on Claritin, Celebrex, amlodipine as well as vancomycin. REVIEW OF SYSTEMS: CONSTITUTIONAL: At the present time, she is having some pain post surgery, but she is otherwise doing well. HEENT: Negative. PULMONARY: Negative. CARDIAC: Negative. PHYSICAL EXAMINATION: GENERAL: She is currently alert, oriented, does not seem to be in acute distress. VITAL SIGNS: Stable, currently afebrile. HEENT: Normocephalic, not icteric. NECK: Supple. CHEST: Clear. HEART: S1, S2. No S3, S4, or murmur. The wound postop looked clean. IMPRESSION: Osteomyelitis of the scalp, infected hardware in patient who had meningioma, status post radiation, multiple surgeries, very difficult situation. The patient and family aware. We will continue vancomycin for two more weeks for now. Obtain sedimentation rate C-reactive protein to follow up as outpatient in 2 weeks. Weekly CBC, weekly Chem panel, weekly vancomycin trough. MD TIO Schmidt/ALMA /[id number]
[2020-02-14 20:15] VITALS: BP 116/69
[2020-02-14] MEDS ORDERED: MIDAZOLAM HCL 2 MG/2 ML VIAL ONE (20:24)
[2020-02-14] MEDS ORDERED: FENTANYL CITRATE/PF 100MCG/2 ML INJ ONE (20:24)
[2020-02-14] MEDS ORDERED: LORATADINE 10 MG TAB PO SCH (21:00)
[2020-02-14] MEDS ORDERED: NON-FORMULARY MEDICATION (Levocetirizine Dihydrochloride 5 MG) PO SCH (21:00)
[2020-02-14 21:33] VITALS: BP 116/69
[2020-02-15] VITALS: BP 106/55
[2020-02-15 04:00] VITALS: BP 115/80
[2020-02-15] MEDS: VANCOMYCIN 1GM/NS 250 ML 250 ML IV SCH (06:28)
[2020-02-15] MEDS ORDERED: PANTOPRAZOLE SOD 40 MG TABEC PO SCH (07:30)
[2020-02-15] MEDS ORDERED: NEOMYCIN/POLYMYX/BACITR OINT 0.9 GM PKT ONE (07:33)
[2020-02-15 07:34] VITALS: BP 117/72
--- NOTE | 2020-02-15 07:34 | NUR ---
DR. PATE AT BEDSIDE, PERFORMED DRESSING CHANGE. INSTRUCTED PT TO F/U IN HIS OFFICE NEXT WEEK. STATES PT CAN BE DISCHARGED.
[2020-02-15] MEDS ORDERED: NEOMYCIN/POLYMYX/BACITR OINT 0.9 GM PKT TOP ONE (08:15)
[2020-02-15 08:39] VITALS: BP 117/72
[2020-02-15] MEDS ORDERED: LETROZOLE 2.5 MG PO SCH (09:00)
[2020-02-15] MEDS ORDERED: ASPIRIN 325 MG TAB PO SCH (09:00)
[2020-02-15] MEDS ORDERED: ATENOLOL 50 MG TAB PO SCH (09:00)
[2020-02-15] MEDS ORDERED: ESCITALOPRAM OXALATE 10 MG TAB PO SCH (09:00)
[2020-02-15] MEDS ORDERED: FUROSEMIDE 40 MG TAB PO SCH (09:00)
[2020-02-15] MEDS ORDERED: NON-FORMULARY MEDICATION (Celecoxib (Celebrex) 200 MG) PO SCH (09:00)
[2020-02-15] MEDS ORDERED: CLOPIDOGREL BISULFATE 75 MG TAB PO SCH (09:00)
[2020-02-15] MEDS ORDERED: PRAVASTATIN 20 MG TAB PO SCH (09:00)
[2020-02-15] MEDS ORDERED: AMLODIPINE BESYLATE 5 MG TAB PO SCH (09:00)
[2020-02-15] MEDS ORDERED: CELECOXIB 200 MG CAP PO SCH (09:00)
--- NOTE | 2020-02-15 09:43 | Progress Note ---
DATE: SUBJECTIVE: Ms. Bowie is a 50-year-old lady, who was admitted to the hospital with multiple craniotomy, portion of radiation. She had recent new craniotomy resulting in breakdown of the wound and exposed hardware. The patient given do well. Hardware remains infected. She had to have further surgeries, however, not be done until the infection is cleared up. She was admitted for closure of the wound as she has been on antibiotics. Clinically, no acute distress. REVIEW OF SYSTEMS: No nausea, vomiting, fever, chills, chest pain, cough, sweat, shortness of breath, rash. PHYSICAL EXAMINATION: VITAL SIGNS: Temperature 96.1, pulse 70, respiration 20, blood pressure 117/72. GENERAL: Alert and oriented, no acute distress. Ambulatory. CV: S1, S2. CHEST: Equal expansion. Clear to auscultation. No acute distress. ABDOMEN: Soft and nontender. No distention. HEENT: Moist. No pallor. No JVD. MEDICATIONS: Medication list reviewed as far as Infectious Disease point of view. The patient is on vancomycin IV every 12 hours. LABORATORY STUDIES: No new laboratory studies available. MICROBIOLOGY: No new microbiology studies available. RADIOLOGY: No new radiology studies available. ASSESSMENT AND PLAN: The patient now is status post excisional debridement of this gap 30 sq. cm, also had temporo-occipital flap closure with scabbed wound, 90 sq. cm and split-thickness skin graft of the donor sites gap 60 sq. cm. The site is dressed. Other medical conditions including hypertension, anxiety, gastritis, depression, scabbed wound as mentioned above. Discussed with Dr. Agosto. Discussed with the case management. The patient to be discharged home to make sure patient has two weeks of IV antibiotics/vancomycin IV. I will order appropriate labs including vancomycin trough, CBC, BMP, and order for removal of the IV access, none after IV antibiotic completed. Please refer to the chart for more information. Dictated by Gonsalo Odom PA-C (Al) Sony Agosto MD /MODL /[id number]
[2020-02-15] MEDS: ACETAMINOPHEN/CODEINE 300MG - 30MG TAB PO PRN (09:49)
[2020-02-15] MEDS: LEVETIRACETAM 500 MG TAB PO SCH (09:51)
--- NOTE | 2020-02-15 10:10 | NUR ---
Pt. expressed no spiritual or emotional concerns at this time. Insurance Sales Assistant provided hospitality and information on how to reach baggagemaster, if needed. Pt expressed appreciation for visit. No need to follow at this time. MERYL JEWELL Insurance Sales Assistant Spiritual Care Department O: [phone]
[2020-02-15 11:03] LABS: BASOPHILS % 0.2 % (0.0-1.0); EOSINOPHILS # (AUTO) 0.3 (0.0-0.4); EOSINOPHILS % 2.8 % (0.0-6.0); HEMATOCRIT 35.5 % (34.2-44.1); HEMOGLOBIN 11.6 g/dL (12.0-16.0); LYMPHOCYTES # (AUTO) 2.8 (1.0-3.2); LYMPHOCYTES % 23.4 % (18.0-39.1); MEAN CORPUSCULAR HEMOGLOBIN 30.1 pg (28-32); MEAN CORPUSCULAR HGB CONC 32.7 g/dL (31-35); MONOCYTES # (AUTO) 0.8 (0.2-0.8); MONOCYTES % 6.9 % (4.4-11.3); NEUTROPHILS # (AUTO) 7.8 (2.1-6.9); NEUTROPHILS % 66.3 % (38.7-80.0); PLATELET COUNT 357 x10e3/uL (140-360); RED BLOOD COUNT 3.86 x10e6/uL (3.6-5.1); RED CELL DISTRIBUTION WIDTH 14.6 % (11.7-14.4)
[2020-02-15 11:29] LABS: CREATININE, SERUM 0.67 mg/dL (0.57-1.11)
[2020-02-15 11:31] LABS: VANCOMYCIN,TROUGH 15.4 ug/mL (5.0-10.0)
--- NOTE | 2020-02-15 12:22 | NUR ---
ORDERS FOR IV VANCOMYCIN AT HOME FOR 2 WEEKS WITH WEEKLY LABS ORDERED PT ON SERVICE WITH REPLACED BY [facility] FAXED TO [phone] ALONG WITH CBC, VANCO TROUGH AND CREAT CONFIRMATION REC'D CHOICE LETTER SIGNED BY PT IMM EXPLAINED, SIGNED BY PT AND PLACED ON CHART COPY OF IMM TO PT
== END 2020-02-15 13:25 | disposition home or self-care (01) ==
LOC: OR 06:35 → PACU V 10:06 → MED/SURG 11:26
PROVIDERS: ADMIT Plastic Surgery; ATTEND Plastic Surgery
DX: S01.00XA Unspecified open wound of scalp, initial encounter (principal); T81.32XD Disruption of internal operation (surgical) wound, not elsewhere classified, subsequent encounter; I10 Essential (primary) hypertension; F17.210 Nicotine dependence, cigarettes, uncomplicated; E78.5 Hyperlipidemia, unspecified; K21.9 Gastro-esophageal reflux disease without esophagitis; Z85.3 Personal history of malignant neoplasm of breast; M86.8X8 Other osteomyelitis, other site
CPT/HCPCS: 14301; 14302; 15120; 36415; 80202; 82565; 85025; G0378 ×2; J0131; J0330; J0690; J1100; J2001; J2250; J2405; J2704; J2710; J3010; J3370 ×2; S0164